=== PATIENT | male | born 1995 | race Caucasian/White ===

== ENCOUNTER 2017-07-12 11:13 | Observation (INO) | payer BC ==
[~2017-07-12] VITALS: Ht 185.4 cm; Wt 121.6 kg
[~2017-07-12 11:13] MED LIST: EC-N500T7 PO
[2017-07-12 11:14] VITALS: BP 155/98; PULSE 95; RESP 17; TEMP 98.7; O2SAT 97
[2017-07-12 11:30] VITALS: O2SAT 100
[2017-07-12] MEDS ORDERED: PANTOPRAZOLE SODIUM 40 MG VIAL IVP ONE (11:30)
[2017-07-12] MEDS ORDERED: ONDANSETRON HCL 4 MG/2 ML VIAL IVP ONE (11:30)
[2017-07-12] MEDS ORDERED: MORPHINE SULFATE 4 MG/ML INJ IV PUSH ONE ×2 (11:30→13:15)
[2017-07-12] MEDS ORDERED: SODIUM CHLORIDE 0.9% FLUSH 10 ML FLUSH IV FLUSH PRN ×2 (11:30→14:45)
--- NOTE | 2017-07-12 11:52 | PD ---
HPI Chief Complaint: Abdominal Pain Time Seen by Provider: 11:19 Travel History International Travel<30 days: No Contact w/Intl Traveler<30days: No Traveled to known affect area: No History of Present Illness HPI 22-year-old male presents to the emergency room for evaluation of right upper abdominal pain that woke him from sleep this morning. Patient has history of peptic ulcer disease. He last had an endoscopy 4 years ago and has been on omeprazole 40 mg daily since then. States he occasionally gets pain but never this bad. He had associated episode of vomiting with bright red blood. No nausea, fever, chills, or diarrhea. No other chronic medical conditions or daily medications. 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 [facility] Past Medical History Inguinal Hernia: Yes Immunizations Current: Yes Past Surgical History Other Surgery: Yes (HERNIA REPAIR) Social History Alcohol Use: No Tobacco Use: No Substance Use: No Allergies-Medications (Allergen,Severity, Reaction): Coded Allergies: No Known Allergies (Unverified Allergy, Unknown, 07/12/17) Reported Meds & Prescriptions Reported Meds & Active Scripts Active Reported Omeprazole 20 Mg Tab 20 Mg PO BID Review of Systems Except as stated in HPI: all other systems reviewed are Neg Physical Exam Narrative GENERAL: Well-nourished, well-developed male in no acute distress. Afebrile. Ambulatory. SKIN: Focused skin assessment warm/dry. HEAD: Normocephalic. EYES: No scleral icterus. No injection or drainage. NECK: Supple, trachea midline. No JVD or lymphadenopathy. CARDIOVASCULAR: Regular rate and rhythm without murmurs, gallops, or rubs. RESPIRATORY: Breath sounds equal bilaterally. No accessory muscle use. GASTROINTESTINAL: Abdomen soft, nondistended. Extreme tenderness to palpation of the right upper quadrant. Data Data Last Documented VS Vital Signs Date Time Temp Pulse Resp B/P (MAP) Pulse Ox O2 Delivery O2 Flow Rate FiO2 07/12/17 11:30 100 07/12/17 11:14 98.7 95 17 Room Air Orders Orders Complete Blood Count With Diff (07/12/17 11:25) Comprehensive Metabolic Panel (07/12/17 11:25) Lipase (07/12/17 11:25) Prothrombin Time / Inr (Pt) (07/12/17 11:25) Act Partial Throm Time (Ptt) (07/12/17 11:25) Abdomen, Flat & Upright (07/12/17 ) Iv Access Insert/Monitor (07/12/17 11:25) Ecg Monitoring (07/12/17 11:25) Oximetry (07/12/17 11:25) Morphine Inj (Morphine Inj) (07/12/17 11:30) Ondansetron Inj (Zofran Inj) (07/12/17 11:30) Pantoprazole Inj (Protonix Inj) (07/12/17 11:30) Sodium Chloride 0.9% Flush (Ns Flush) (07/12/17 11:30) Type And Screen (07/12/17 11:52) Morphine Inj (Morphine Inj) (07/12/17 13:15) Consult Gastroenterology (07/12/17 ) Sodium Chloride 0.9... W/Pantoprazole In (07/12/17 13:29) Sodium Chloride 0.9... W/Pantoprazole In (07/12/17 13:29) (Hub Use Only)Inp Phy Cons/Ref (07/12/17 ) Admit Order (Ed Use Only) (07/12/17 14:10) Labs Laboratory Tests Test 07/12/17 11:30 White Blood Count 9.0 TH/MM3 Red Blood Count 4.77 MIL/MM3 Hemoglobin 15.6 GM/DL Hematocrit 44.7 % Mean Corpuscular Volume 93.7 FL Mean Corpuscular Hemoglobin 32.8 PG Mean Corpuscular Hemoglobin Concent 35.0 % Red Cell Distribution Width 12.5 % Platelet Count 245 TH/MM3 Mean Platelet Volume 8.3 FL Neutrophils (%) (Auto) 66.6 % Lymphocytes (%) (Auto) 23.4 % Monocytes (%) (Auto) 8.6 % Eosinophils (%) (Auto) 0.9 % Basophils (%) (Auto) 0.5 % Neutrophils # (Auto) 6.0 TH/MM3 Lymphocytes # (Auto) 2.1 TH/MM3 Monocytes # (Auto) 0.8 TH/MM3 Eosinophils # (Auto) 0.1 TH/MM3 Basophils # (Auto) 0.0 TH/MM3 CBC Comment DIFF FINAL Differential Comment Prothrombin Time 11.0 SEC Prothromb Time International Ratio 1.0 RATIO Activated Partial Thromboplast Time 27.4 SEC Blood Urea Nitrogen 11 MG/DL Creatinine 1.07 MG/DL Random Glucose 103 MG/DL Total Protein 7.6 GM/DL Albumin 4.0 GM/DL Calcium Level 8.7 MG/DL Alkaline Phosphatase 57 U/L Aspartate Amino Transf (AST/SGOT) 39 U/L Alanine Aminotransferase (ALT/SGPT) 81 U/L Total Bilirubin 0.4 MG/DL Sodium Level 140 MEQ/L Potassium Level 3.8 MEQ/L Chloride Level 105 MEQ/L Carbon Dioxide Level 28.9 MEQ/L Anion Gap 6 MEQ/L Estimat Glomerular Filtration Rate 86 ML/MIN Lipase 81 U/L [facility] Medical Decision Making Medical Screen Exam Complete: Yes Emergency Medical Condition: Yes Medical Record Reviewed: Yes Differential Diagnosis PUD, perforated ulcer, GERD, pancreatitis Narrative Course 22-year-old male history of PUD presents to the emergency room for evaluation of severe right upper quadrant abdominal pain that started earlier today. Pain woke patient from sleep. He had one episode of vomiting earlier bright red blood in it. IV access established and basic labs obtained. Patient given IV Protonix, Zofran, and morphine. While in the ED, he vomited. Hemoccult testing was positive for blood though there is concern for false positive because it is meant for stool. There is moderate to severe tenderness in the right upper quadrant but no peritoneal signs. Abdominal x-rays don't show any evidence of free air. CBC and CMP are essentially unremarkable. Vital signs stable. I spoke to my attending physician who recommends admission for hematemesis despite being on 40 mg Protonix the past 4 years. GI consulted for endoscopy. I spoke the resident on-call for Dr. Hernandez who agrees to admission. Patient understands and agrees to plan. Admitting Information Admitting Physician Requests: Observation Condition: Stable Nakia Boykin Jul 12, 2017 11:52
[2017-07-12 12:17] LABS: BASOPHIL % 0.5 % (0.0-2.0); EOSINOPHIL # 0.1 TH/MM3 (0-0.4); EOSINOPHIL % 0.9 % (0.0-4.0); HEMATOCRIT 44.7 % (39.0-51.0); HEMOGLOBIN 15.6 GM/DL (13.0-17.0); LYMPH % 23.4 % (9.0-44.0); LYMPHOCYTE # 2.1 TH/MM3 (1.0-4.8); MEAN CELL VOLUME 93.7 FL (80.0-100.0); MEAN CORPUSCULAR HEMOGLOBIN 32.8 PG (27.0-34.0); MEAN PLATELET VOLUME 8.3 FL (7.0-11.0); MONO % 8.6 % (0.0-8.0); MONOCYTE # 0.8 TH/MM3 (0-0.9); NEUT % 66.6 % (16.0-70.0); PLATELET COUNT 245 TH/MM3 (150-450); RED BLOOD COUNT 4.77 MIL/MM3 (4.50-5.90); RED CELL DISTRIBUTION WIDTH 12.5 % (11.6-17.2)
[2017-07-12 12:33] LABS: ALKALINE PHOSPHATASE 57 U/L (45-117); ALT (GPT) 81 U/L (12-78); TOTAL BILIRUBIN ADULT 0.4 MG/DL (0.2-1.0); TOTAL PROTEIN 7.6 GM/DL (6.4-8.2)
[2017-07-12 12:37] LABS: AST (GOT) 39 U/L (15-37); BICARBONATE 28.9 MEQ/L (21.0-32.0); BLOOD UREA NITROGEN 11 MG/DL (7-18); CALCIUM 8.7 MG/DL (8.5-10.1); CHLORIDE 105 MEQ/L (98-107); CREATININE 1.07 MG/DL (0.60-1.30); GLOMERULAR FILTRATION RATE 86 ML/MIN (>89); GLUCOSE,RANDOM 103 MG/DL (74-106); LIPASE 81 U/L (73-393); SODIUM (NA) 140 MEQ/L (136-145)
--- NOTE | 2017-07-12 12:53 | RADRPT ---
EXAM DATE/TIME: 07/12/2017 12:17 [place] COMPARISON: No previous studies available for comparison. INDICATIONS : Pain right upper abdomen, nausea, vomiting, acid reflux. Evaluate for free air. MEDICAL HISTORY : gastric ulcers SURGICAL HISTORY : None. ENCOUNTER: Initial ACUITY: 2 days PAIN SCORE: 10/10 LOCATION: Right abdomen FINDINGS: Supine and upright views of the abdomen were performed. The abdominal bowel gas pattern is normal. No air fluid levels are seen. No abnormal masses, calcifications, or organomegaly is seen. The visu alized lower lungs are clear. No evidence of free intraperitoneal gas. The osseous structures are u nremarkable. CONCLUSION: Radiographically benign abdomen. Dayron Sheth MD on July 12, 2017 at 12:50 Board Certified Radiologist. This report was verified electronically.
[2017-07-12] MEDS ORDERED: SODIUM CHLORIDE 0.9% IV ONE (13:29)
[2017-07-12] MEDS ORDERED: PANTOPRAZOLE IV ONE (13:29)
[2017-07-12] MEDS ORDERED: OMEP20TA93 PO (13:33)
[2017-07-12] MEDS: PANTOPRAZOLE INJ 80 MG in SODIUM CHLORIDE 0.9% INJ 100 ML IV SCH ×2 (14:06→23:23)
[2017-07-12] MEDS ORDERED: IOHEXOL 350 MG/ML 10 ML VIAL (for RAD DIAG) IVCONTRAST ONE (14:12)
[2017-07-12] MEDS ORDERED: SENNOSIDES 8.6 MG TAB PO PRN (14:45)
[2017-07-12] MEDS ORDERED: TEMAZEPAM 15 MG CAP PO PRN (14:45)
[2017-07-12] MEDS ORDERED: BISACODYL 10 MG SUPP RECTAL PRN (14:45)
[2017-07-12] MEDS ORDERED: NALOXONE HCL 0.4 MG/ML AMP IV PUSH PRN (14:45)
[2017-07-12] MEDS ORDERED: MAGNESIUM HYDROXIDE SUSP 30 ML CUP PO PRN (14:45)
[2017-07-12] MEDS ORDERED: ONDANSETRON HCL 4 MG/2 ML VIAL IVP PRN (14:45)
[2017-07-12] MEDS ORDERED: LACTULOSE SYRUP 20 GM/30 ML CUP PO PRN (14:45)
[2017-07-12] MEDS ORDERED: ACETAMINOPHEN 325 MG TAB PO PRN (14:45)
--- NOTE | 2017-07-12 14:48 | HHI.HP ---
HPI Service Family Medicine Primary Care Physician No Primary Care Physician Admission Diagnosis hematemesis, PUD Diagnoses: International Travel<30 Days: No Contact w/Intl Traveler<30days: No Known Affected Area: No History of Present Illness 22 yr old w/ PMHx of PUD presents to the ED for hematemesis. No PCP. Patient reports having 2 day hx of worsening RUQ abdominal pain. He describes the pain as 8/10, constant, and sharp. He's had 2 episodes of slightly bloody vomiting in the past 2 days. He's had 2 episodes of slightly bloody vomiting in the ED. He endorses nausea and lightheadedness. Last meal he ate was last night, but was unable to keep it down. His abdominal pain is not related to food. He is able to drink liquids w/o difficulty. He denies diarrhea, fever, chills, CP, and SOB. He reports that this is his 3rd hospitalization for his abdominal pain. His most recent hospitalization was 4 years ago, an endoscopy was performed and revealed 5-6 ulcers per patient. he was placed on omeprazole 20mg BID. He does not recall the GI doctor that treated him. He does not recall being tested or treated for H.pylori. Review of Systems Constitutional: COMPLAINS OF: Change in appetite (decreased appetite ), DENIES : Fever, Weight loss, Chills Ears, nose, mouth, throat: COMPLAINS OF: Throat pain (sore throat due to vomiting ) Respiratory: DENIES: Cough, Shortness of breath Cardiovascular: DENIES: Chest pain Gastrointestinal: COMPLAINS OF: Abdominal pain (RUQ pain ), Nausea, Vomiting, DENIES: Bloody stools, Diarrhea Genitourinary: DENIES: Dysuria Musculoskeletal: DENIES: Muscle aches Integumentary: DENIES: Abnormal pigmentation Hematologic/lymphatic: DENIES: Bruising Neurologic: DENIES: Headache Past Family Social History Past Medical History Depression PUD Past Surgical History Surgery for undescended testicle Allergies: Coded Allergies: No Known Allergies (Unverified Allergy, Unknown, 07/12/17) Family History Parents are alive and well. HTN, HLD, DM Social History Senior Student at [employer] studying [employer] Denies smoking Occasional Drinker Denies Illicit Drug Use Physical Exam Vital Signs Vital Signs Date Time Temp Pulse Resp B/P (MAP) Pulse Ox O2 Delivery O2 Flow Rate FiO2 11/28/17 11:30 100 07/12/17 11:14 98.7 95 17 155/98 (117) 97 Room Air Physical Exam GENERAL: pleasant, in NAD SKIN: No rashes, ecchymoses or lesions. Cool and dry. HEAD: Atraumatic. Normocephalic. No temporal or scalp tenderness. EYES: Dilated pupils. Extraocular motions intact. No scleral icterus. No injection or drainage. ENT: Throat clear NECK: Trachea midline. No JVD or lymphadenopathy. Supple, nontender, no meningeal signs. CARDIOVASCULAR: Regular rate and rhythm without murmurs, gallops, or rubs. RESPIRATORY: Clear to auscultation. Breath sounds equal bilaterally. No wheezes , rales, or rhonchi. GASTROINTESTINAL: Abdomen soft, mild RUQ tenderness upon palpation, nondistended. No hepato-splenomegaly, or palpable masses. No guarding. +BS MUSCULOSKELETAL: Extremities without clubbing, cyanosis, or edema. No joint tenderness, effusion, or edema noted. NEUROLOGICAL: Awake and alert. Oriented x3 Laboratory Laboratory Tests Test 07/12/17 11:30 White Blood Count 9.0 Red Blood Count 4.77 Hemoglobin 15.6 Hematocrit 44.7 Mean Corpuscular Volume 93.7 Mean Corpuscular Hemoglobin 32.8 Mean Corpuscular Hemoglobin Concent 35.0 Red Cell Distribution Width 12.5 Platelet Count 245 Mean Platelet Volume 8.3 Neutrophils (%) (Auto) 66.6 Lymphocytes (%) (Auto) 23.4 Monocytes (%) (Auto) 8.6 Eosinophils (%) (Auto) 0.9 Basophils (%) (Auto) 0.5 Neutrophils # (Auto) 6.0 Lymphocytes # (Auto) 2.1 Monocytes # (Auto) 0.8 Eosinophils # (Auto) 0.1 Basophils # (Auto) 0.0 CBC Comment DIFF FINAL Differential Comment Prothrombin Time 11.0 Prothromb Time International Ratio 1.0 Activated Partial Thromboplast Time 27.4 Blood Urea Nitrogen 11 Creatinine 1.07 Random Glucose 103 Total Protein 7.6 Albumin 4.0 Calcium Level 8.7 Alkaline Phosphatase 57 Aspartate Amino Transf (AST/SGOT) 39 Alanine Aminotransferase (ALT/SGPT) 81 Total Bilirubin 0.4 Sodium Level 140 Potassium Level 3.8 Chloride Level 105 Carbon Dioxide Level 28.9 Anion Gap 6 Estimat Glomerular Filtration Rate 86 Lipase 81 Result Diagram: 07/12/170 07/12/17 1130 Caprini VTE Risk Assessment Caprini VTE Risk Assessment: No/Low Risk (score <= 1) Caprini Risk Assessment Model Point Value = 1 Point Value = 2 Point Value = 3 Point Value = 5 Age 41-60 Minor surgery BMI > 25 kg/m2 Swollen legs Varicose veins or History of unexplained or recurrent spontaneous Oral contraceptives or hormone replacement Sepsis (< 1 month) Serious lung disease, including pneumonia (< 1 month) Abnormal pulmonary function Acute myocardial infarction Congestive heart failure (< 1 month) History of inflammatory bowel disease Medical patient at bed rest Age 61-74 Arthroscopic surgery Major open surgery (> 45 min) Laparoscopic surgery (> 45 min) Malignancy Confined to bed (> 72 hours) Immobilizing plaster cast Central venous access Age >= 75 History of VTE Family history of VTE Factor V Leiden Prothrombin [id number] Lupus anticoagulant Anticardiolipin antibodies Elevated serum homocysteine Heparin-induced thrombocytopenia Other congenital or acquired thrombophilia Stroke (< 1 month) Elective arthroplasty Hip, pelvis, or leg fracture Acute spinal cord injury (< 1 month) Prophylaxis Regimen Total Risk Factor Score Risk Level Prophylaxis Regimen 0-1 Low Early ambulation 2 Moderate Order ONE of the following: *Sequential Compression Device (SCD) *Heparin 5000 units SQ BID 3-4 Higher Order ONE of the following medications: *Heparin 5000 units SQ TID *Enoxaparin/Lovenox 40 mg SQ daily (WT < 150 kg, CrCl > 30 mL/min) *Enoxaparin/Lovenox 30 mg SQ daily (WT < 150 kg, CrCl > 10-29 mL/min) *Enoxaparin/Lovenox 30 mg SQ BID (WT < 150 kg, CrCl > 30 mL/min) AND/OR *Sequential Compression Device (SCD) 5 or more Highest Order ONE of the following medications: *Heparin 5000 units SQ TID (Preferred with Epidurals) *Enoxaparin/Lovenox 40 mg SQ daily (WT < 150 kg, CrCl > 30 mL/min) *Enoxaparin/Lovenox 30 mg SQ daily (WT < 150 kg, CrCl > 10-29 mL/min) *Enoxaparin/Lovenox 30 mg SQ BID (WT < 150 kg, CrCl > 30 mL/min) AND *Sequential Compression Device (SCD) Assessment and Plan Assessment and Plan 22 yr old M w/ hx of PUD admitted for hematemesis and RUQ abdominal pain Code Status Full Code Discussed Condition With Dr. Hernandez and Dr. Zhang Problem List: (1) Hematemesis ICD Codes: K92.0 - Hematemesis Status: Acute Plan: Hx of Peptic Ulcer Disease 4 years ago. Several episodes of hematemesis. * GI consulted, appreciated recs * H/H stable * AST and ALT mildly elevated * Hemoccult negative * Abdominal X-ray normal * Gallbladder US limited to patient's body habitus. Liver unremarkable. Possible gallbladder sludge. * Held home omeprazole 20mg PO BID * Protonix drip started * NPO, plan for EGD in the AM * CBC, CMP ordered for the AM (2) Abdominal pain ICD Codes: R10.9 - Unspecified abdominal pain Status: Acute Plan: please see plan above (3) Depression ICD Codes: F32.9 - Major depressive disorder, single episode, unspecified Plan: Continue home med, Prozac 40mg PO daily (4) Nutrition, metabolism, and development symptoms ICD Codes: R63.8 - Other symptoms and signs concerning food and fluid intake Plan: Diet: NPO after midnight Fluids: 140mls/hr MIVF vitals q4h, monitor I & Os DVT ppx: SCDs Problem Qualifiers (1) Hematemesis: Qualified Codes: K92.0 - Hematemesis (2) Abdominal pain: Qualified Codes: R10.11 - Right upper quadrant pain Sayra Presley MD R1 Jul 12, 2017 14:48
--- NOTE | 2017-07-12 14:49 | PD ---
Data Data Last Documented VS Vital Signs Date Time Temp Pulse Resp B/P (MAP) Pulse Ox O2 Delivery O2 Flow Rate FiO2 07/12/17 11:30 100 07/12/17 11:14 98.7 95 17 Room Air Orders Orders Complete Blood Count With Diff (07/12/17 11:25) Comprehensive Metabolic Panel (07/12/17 11:25) Lipase (07/12/17 11:25) Prothrombin Time / Inr (Pt) (07/12/17 11:25) Act Partial Throm Time (Ptt) (07/12/17 11:25) Abdomen, Flat & Upright (07/12/17 ) Iv Access Insert/Monitor (07/12/17 11:25) Ecg Monitoring (07/12/17 11:25) Oximetry (07/12/17 11:25) Morphine Inj (Morphine Inj) (07/12/17 11:30) Ondansetron Inj (Zofran Inj) (07/12/17 11:30) Pantoprazole Inj (Protonix Inj) (07/12/17 11:30) Sodium Chloride 0.9% Flush (Ns Flush) (07/12/17 11:30) Type And Screen (07/12/17 11:52) Morphine Inj (Morphine Inj) (07/12/17 13:15) Consult Gastroenterology (07/12/17 ) Sodium Chloride 0.9... W/Pantoprazole In (07/12/17 13:29) Sodium Chloride 0.9... W/Pantoprazole In (07/12/17 13:29) (Hub Use Only)Inp Phy Cons/Ref (07/12/17 ) Admit Order (Ed Use Only) (07/12/17 14:10) Labs Laboratory Tests Test 07/12/17 11:30 White Blood Count 9.0 TH/MM3 Red Blood Count 4.77 MIL/MM3 Hemoglobin 15.6 GM/DL Hematocrit 44.7 % Mean Corpuscular Volume 93.7 FL Mean Corpuscular Hemoglobin 32.8 PG Mean Corpuscular Hemoglobin Concent 35.0 % Red Cell Distribution Width 12.5 % Platelet Count 245 TH/MM3 Mean Platelet Volume 8.3 FL Neutrophils (%) (Auto) 66.6 % Lymphocytes (%) (Auto) 23.4 % Monocytes (%) (Auto) 8.6 % Eosinophils (%) (Auto) 0.9 % Basophils (%) (Auto) 0.5 % Neutrophils # (Auto) 6.0 TH/MM3 Lymphocytes # (Auto) 2.1 TH/MM3 Monocytes # (Auto) 0.8 TH/MM3 Eosinophils # (Auto) 0.1 TH/MM3 Basophils # (Auto) 0.0 TH/MM3 CBC Comment DIFF FINAL Differential Comment Prothrombin Time 11.0 SEC Prothromb Time International Ratio 1.0 RATIO Activated Partial Thromboplast Time 27.4 SEC Blood Urea Nitrogen 11 MG/DL Creatinine 1.07 MG/DL Random Glucose 103 MG/DL Total Protein 7.6 GM/DL Albumin 4.0 GM/DL Calcium Level 8.7 MG/DL Alkaline Phosphatase 57 U/L Aspartate Amino Transf (AST/SGOT) 39 U/L Alanine Aminotransferase (ALT/SGPT) 81 U/L Total Bilirubin 0.4 MG/DL Sodium Level 140 MEQ/L Potassium Level 3.8 MEQ/L Chloride Level 105 MEQ/L Carbon Dioxide Level 28.9 MEQ/L Anion Gap 6 MEQ/L Estimat Glomerular Filtration Rate 86 ML/MIN Lipase 81 U/L MDM Supervised Visit with JUAQUIN: Yes Narrative Course The history, exam, and medical decision-making in the associated mid-level provider note were completed with my assistance. I reviewed and agree with the findings presented. I attest that I had a [id number] encounter with the patient on the same day, and personally performed and documented my assessment and findings in the medical record. *My assessment and Findings: 20-year-old, history of peptic ulcer disease, here with abdominal pain, epigastric tenderness, hematemesis. Looks overall well. Some right upper quadrant and epigastric tenderness. I don't think he has hepatobiliary disease. Reports bright red blood intermixed with vomitus. We'll plan on admission for observation. May need endoscopy. Admitting Information Admitting Physician Requests: Observation Condition: Stable Víctor Kimball MD Jul 12, 2017 14:48
[2017-07-12] MEDS ORDERED: PROZ40CA PO (14:50)
--- NOTE | 2017-07-12 14:59 | PD.CONS ---
HPI History of Present Illness This is a 22 year old with a history of peptic ulcer disease, who presented to the emergency room for evaluation of abdominal pain and hematemesis. He reports that he had a stomach ulcer about 4 years ago and has since been on Omeprazole 20mg po twice daily. Despite BID dosing, he continues to have breakthrough symptoms about 3-4 times a week and he does note that this has been worsening over the past few weeks. He states that he frequently wakes up with acid reflux and states sometimes it also "chokes" him. Last night, he had [place] takeout dinner around 8pm. He went to bed around midnight and then woke up with abdominal pain around 6am. This is a constant sharp pain in his right upper quadrant without radiation. He has had intermittent nausea and vomiting x 2 days. He also reports that he had about a mouthful of emesis consisting of acid reflux/yellow gastric secretions streaked with red blood. He denies any constipation, diarrhea, melena, or hematochezia. He denies any NSAID use. He rarely drinks alcohol. He does not typically eat fried foods, but states that he does not have any known fatty food intolerances. (Isela Da Silva) PFSH Past Medical History GERD PUD Past Surgical History EGD Testicle surgery as child (Isela Da Silva) Coded Allergies: No Known Allergies (Unverified Allergy, Unknown, 07/12/17) Medications Allergies Coded Allergies Type Severity Reaction Last Updated Verified No Known Allergies Allergy Unknown 07/12/17 No Active Scripts Medications Dose Route/Sig Max Daily Dose Days Date Category Omeprazole 20 Mg Tab 20 Mg PO BID 07/12/17 Reported Family History PGM from [place] MGM has DM MGF Cardiac disease/[place], hyperlipidemia, HTN Social History No tobacco. Rare ETOH use No illicit drug use. (Isela Da Silva) Review of Systems Constitutional: DENIES: Fatigue, Fever, Chills Respiratory: DENIES: Cough Cardiovascular: DENIES: Chest pain Gastrointestinal: COMPLAINS OF: Abdominal pain, Nausea, Vomiting, Heartburn, Hematemesis, DENIES: Black stools, Bloody stools, Constipation, Diarrhea Musculoskeletal: DENIES: Joint pain Hematologic/lymphatic: DENIES: Bruising Immunologic/allergic: DENIES: Eczema Neurologic: DENIES: Headache Psychiatric: DENIES: Confusion (Isela Da Silva) GI Exam Vitals I&O Vital Signs Date Time Temp Pulse Resp B/P (MAP) Pulse Ox O2 Delivery O2 Flow Rate FiO2 07/12/17 11:30 100 07/12/17 11:14 98.7 95 17 155/98 (117) 97 Room Air I/O 07/11/17 07/11/17 07/11/17 07/12/17 07/12/17 07/12/17 07:00 15:00 23:00 07:00 15:00 23:00 Intake Total 35 ml Balance 35 ml Intake IV Total 35 ml Imaging Last Impressions Abdomen X-Ray 07/12/17 0000 Signed Impressions: Service Date/Time: Wednesday, July 12, 2017 12:17 - CONCLUSION: Radiographically benign abdomen. Dayron Sheth MD Laboratory Test 07/12/17 11:30 White Blood Count 9.0 TH/MM3 Red Blood Count 4.77 MIL/MM3 Hemoglobin 15.6 GM/DL Hematocrit 44.7 % Mean Corpuscular Volume 93.7 FL Mean Corpuscular Hemoglobin 32.8 PG Mean Corpuscular Hemoglobin Concent 35.0 % Red Cell Distribution Width 12.5 % Platelet Count 245 TH/MM3 Mean Platelet Volume 8.3 FL Neutrophils (%) (Auto) 66.6 % Lymphocytes (%) (Auto) 23.4 % Monocytes (%) (Auto) 8.6 % Eosinophils (%) (Auto) 0.9 % Basophils (%) (Auto) 0.5 % Neutrophils # (Auto) 6.0 TH/MM3 Lymphocytes # (Auto) 2.1 TH/MM3 Monocytes # (Auto) 0.8 TH/MM3 Eosinophils # (Auto) 0.1 TH/MM3 Basophils # (Auto) 0.0 TH/MM3 CBC Comment DIFF FINAL Differential Comment Prothrombin Time 11.0 SEC Prothromb Time International Ratio 1.0 RATIO Activated Partial Thromboplast Time 27.4 SEC Blood Urea Nitrogen 11 MG/DL Creatinine 1.07 MG/DL Random Glucose 103 MG/DL Total Protein 7.6 GM/DL Albumin 4.0 GM/DL Calcium Level 8.7 MG/DL Alkaline Phosphatase 57 U/L Aspartate Amino Transf (AST/SGOT) 39 U/L Alanine Aminotransferase (ALT/SGPT) 81 U/L Total Bilirubin 0.4 MG/DL Sodium Level 140 MEQ/L Potassium Level 3.8 MEQ/L Chloride Level 105 MEQ/L Carbon Dioxide Level 28.9 MEQ/L Anion Gap 6 MEQ/L Estimat Glomerular Filtration Rate 86 ML/MIN Lipase 81 U/L Physical Examination HEENT: Normocephalic; atraumatic; no jaundice. CHEST: CTA CARDIAC: RRR ABDOMEN: Soft, nondistended, RUQ tenderness; no hepatosplenomegaly; bowel sounds are present in all four quadrants. EXTREMITIES: No clubbing, cyanosis, or edema. SKIN: Normal; no rash; no jaundice. HEAD WRESTLING COACH: No focal deficits; alert and oriented times three. (Isela Da Silva) Assessment and Plan Plan ASSESSMENT: - Hematemesis. N/V x 2 days. This am, had hematemesis "mouthful of acid mixed with red blood." Hx of PUD 4 years ago. Last EGD at that time. On Omeprazole 20mg po BID. HH Stable. Protonix Gtt. NPO. - RUQ pain with elevated LFTs. Pt has significant RUQ tenderness on exam. AST and ALT mildly elevated. No hx of liver disease. Rare ETOH use. T. Bili 0.4, AST 39, ALT 81, Alk PHosph 57. Check RUQ US for signs of acute cholecystitis. - Severe GERD with breakthrough symptoms. Takes PPI with BID dosing at home, but still with breakthrough symptoms 3-4 times a week. Protonix Gtt. PLAN: - Plan for EGD in am - Obtain consents - Clear liquids after RUQ US - RUQ US to evaluate for acute cholecystitis - Protonix Gtt - Monitor HH - Transfuse as necessary - CBC, CMP in am - Supportive care - Further recommendations to follow based on results of above - Pt seen and examined by Dr. Hamilton and myself and this note is written on her behalf (Isela Da Silva) Physician Comments seen, examined agree with above egd in am us noted -we will order hida scan-tenderness ruq strong family history of colon cancer-as per mother-4 aunts had colon cancer- colonoscopy op high risk (Radha Hamilton MD) Isela Da Silva Jul 12, 2017 14:59 Radha Hamilton MD Jul 12, 2017 19:14
--- NOTE | 2017-07-12 15:04 | HHI.FPPN ---
Subjective Remarks Pt. seen, examined and discussed with Drs. Presley and Aldair Hernandez. This is a 22 yo male student at [employer] who developed right upper quadrant abdominal pain 2 days ago which is constant and has steadily worsened. This a.m. he awoke with bloody mucus in his mouth, and subsequently has vomited several times, reporting blood streaks. Remains nauseated. He was diagnosed with 4-5 peptic ulcers approximately 4 years ago and has been on a PPI faithfully since. Does not recall if he took antibiotics for H. Pylori. Has been avoiding spicy foods overall. No recent dietary indiscretions. Last BM last night which was normal. Hx of depression on Prozac. Due to graduate from [employer] in 22 days. No local PCP ; had a PCP in the [place] area previously. See H&P for this admission for additional past, family, social history and ROS at the time of admission. Objective Vitals Vital Signs Date Time Temp Pulse Resp B/P (MAP) Pulse Ox O2 Delivery O2 Flow Rate FiO2 07/12/17 11:30 100 07/12/17 11:14 98.7 95 17 155/98 (117) 97 Room Air I/O 07/11/17 07/11/17 07/11/17 07/12/17 07/12/17 07/12/17 07:00 15:00 23:00 07:00 15:00 23:00 Intake Total 35 ml Balance 35 ml Intake IV Total 35 ml Result Diagram: 07/12/17 1130 07/12/17 1130 Other Results Laboratory Tests Test 07/12/17 11:30 White Blood Count 9.0 TH/MM3 Red Blood Count 4.77 MIL/MM3 Hemoglobin 15.6 GM/DL Hematocrit 44.7 % Mean Corpuscular Volume 93.7 FL Mean Corpuscular Hemoglobin 32.8 PG Mean Corpuscular Hemoglobin Concent 35.0 % Red Cell Distribution Width 12.5 % Platelet Count 245 TH/MM3 Mean Platelet Volume 8.3 FL Neutrophils (%) (Auto) 66.6 % Lymphocytes (%) (Auto) 23.4 % Monocytes (%) (Auto) 8.6 % Eosinophils (%) (Auto) 0.9 % Basophils (%) (Auto) 0.5 % Neutrophils # (Auto) 6.0 TH/MM3 Lymphocytes # (Auto) 2.1 TH/MM3 Monocytes # (Auto) 0.8 TH/MM3 Eosinophils # (Auto) 0.1 TH/MM3 Basophils # (Auto) 0.0 TH/MM3 CBC Comment DIFF FINAL Differential Comment Prothrombin Time 11.0 SEC Prothromb Time International Ratio 1.0 RATIO Activated Partial Thromboplast Time 27.4 SEC Blood Urea Nitrogen 11 MG/DL Creatinine 1.07 MG/DL Random Glucose 103 MG/DL Total Protein 7.6 GM/DL Albumin 4.0 GM/DL Calcium Level 8.7 MG/DL Alkaline Phosphatase 57 U/L Aspartate Amino Transf (AST/SGOT) 39 U/L Alanine Aminotransferase (ALT/SGPT) 81 U/L Total Bilirubin 0.4 MG/DL Sodium Level 140 MEQ/L Potassium Level 3.8 MEQ/L Chloride Level 105 MEQ/L Carbon Dioxide Level 28.9 MEQ/L Anion Gap 6 MEQ/L Estimat Glomerular Filtration Rate 86 ML/MIN Lipase 81 U/L Imaging Last 24 hours Impressions Abdomen X-Ray 07/12/17 0000 Signed Impressions: Service Date/Time: Wednesday, July 12, 2017 12:17 - CONCLUSION: Radiographically benign abdomen. Dayron Sheth MD Objective Remarks O. CONSTITUTIONAL/GEN: normally nourished, in NAD. EYES: conjunctiva normal, PERRLA, EOMI. ENT: Mouth and pharynx normal. MM moist. NECK: thyroid midline, carotids symmetrical. Supple. LUNGS: clear A-P, respiratory effort is normal. CARDIOVASCULAR: RR without murmur or gallop. No significant edema. Thorax: No spinous process tenderness. GI/ABD: soft without masses, without organomegaly. BS +. No guarding, no rigidity, some tenderness to palpation RUQ. Rectal exam negative with heme negative stool. : no CVA tenderness NEURO: No focal deficits. SKIN: color normal, no rashes noted. HEME/LYMPH: no bruising, petechia or significant adenopathy MUSC: back is normal in appearance. Extremities are normal in appearance. PSYCH/MENTAL STATUS: Alert and oriented x 3. A/P Assessment and Plan 22 yo male with right upper quadrant pain and vomiting with a history of peptic ulcer disease. See orders; GI consultation. Discharge Planning Case management consult. Attending Attestation Patient seen and examined. Case reviewed and discussed with the resident team. Agree with plan of care as discussed with me and documented in the resident note. Aurora Hernandez MD Jul 12, 2017 15:04
--- NOTE | 2017-07-12 15:55 | RADRPT ---
EXAM DATE/TIME: 07/12/2017 15:19 [facility] COMPARISON: No previous studies available for comparison. INDICATIONS : Right upper quadrant pain. MEDICAL HISTORY : Hematemesis. Hernia, inguinal. SURGICAL HISTORY : Inguinal hernai repair. ENCOUNTER: Initial ACUITY: > 1 year PAIN SCORE: 6/10 LOCATION: Right upper quadrant MEASUREMENTS: LIVER: 19.2 cm length COMMON DUCT: Non-visualized RIGHT KIDNEY: 10.1 x 6.0 x 4.8 cm FINDINGS: Extremely limited examination due to patient body habitus. Pancreas could not be visualized due to ov erlying bowel gas. Limited visualization of the liver shows no acute abnormality. Possible gallbladde r sludge with minimal pericholecystic fluid but again, anatomic detail is limited. Right kidney is gr ossly unremarkable. CONCLUSION: 1. Extremely limited examination due to patient's body habitus. The pancreas and hepatic vasculature could not be identified. 2. Visualized portions of the liver are grossly unremarkable. 3. Possible gallbladder sludge and may be a minimal amount of pericholecystic fluid although again, a natomic detail is limited. Dayron Sheth MD on July 12, 2017 at 15:51 Board Certified Radiologist. This report was verified electronically.
[2017-07-12] MEDS: DOCUSATE SODIUM 50 MG/SENNA 8.6 MG TAB PO SCH ×2 (16:00→21:00)
[2017-07-12] MEDS: SODIUM CHLOR 0.9% 1000 ML INJ 1,000 ML IV SCH (16:00)
[2017-07-12 16:04] VITALS: BP 132/90; PULSE 93; RESP 18; TEMP 96.1; O2SAT 95
[2017-07-12] MEDS: SODIUM CHLORIDE 0.9% FLUSH 10 ML FLUSH IV FLUSH SCH ×2 (16:16→21:00)
[2017-07-12] MEDS: MORPHINE SULFATE 2 MG/ML INJ IV PUSH PRN ×2 (16:16→23:23)
[2017-07-12 16:19] VITALS: O2SAT 95
[2017-07-12 19:33] VITALS: BP 144/69; PULSE 90; RESP 16; TEMP 98.2; O2SAT 95
[2017-07-12 22:29] LABS: HEMATOCRIT 39.6 % (39.0-51.0); HEMOGLOBIN 13.8 GM/DL (13.0-17.0)
[2017-07-13] MEDS ORDERED: SODIUM CHLORID 0.9% 500 ML IV PRN (00:15)
[2017-07-13] MEDS ORDERED: LACTATED RINGER'S 1000 ML IV PRN (00:15)
[2017-07-13] MEDS ORDERED: CHLORHEXIDINE GLUCONATE 2 % 1 PACK (2 CLOTHS) TOPICAL PRN (00:15)
[2017-07-13] MEDS ORDERED: POVIDONE IODINE 5% (ANTISEPSIS KIT) 4 APPLICATIONS EACH NARE PRN (00:15)
[2017-07-13] MEDS ORDERED: INSULIN HUMAN REGULAR 1,000 UNITS/10 ML VIAL SQ PRN (00:15)
[2017-07-13] MEDS ORDERED: METOPROLOL TARTRATE 25 MG TAB PO PRN (00:15)
[2017-07-13 07:31] VITALS: BP 118/74; PULSE 83; RESP 18; TEMP 97.6; O2SAT 83
[2017-07-13] MEDS: FLUoxetine HCL 20 MG CAP PO SCH (08:06)
[2017-07-13] MEDS: SODIUM CHLORIDE 0.9% FLUSH 10 ML FLUSH IV FLUSH SCH ×2 (08:08→20:24)
[2017-07-13] MEDS: DOCUSATE SODIUM 50 MG/SENNA 8.6 MG TAB PO SCH ×2 (08:08→21:00)
[2017-07-13] MEDS: PANTOPRAZOLE INJ 80 MG in SODIUM CHLORIDE 0.9% INJ 100 ML IV SCH ×2 (08:10→22:23)
[2017-07-13] MEDS: SODIUM CHLOR 0.9% 1000 ML INJ 1,000 ML IV SCH ×3 (08:10→15:39)
[2017-07-13] MEDS: MORPHINE SULFATE 2 MG/ML INJ IV PUSH PRN ×4 (09:30→23:42)
[2017-07-13] MEDS ORDERED: PNEUMOCOCCAL POLYVALENT INJ 25 MCG/0.5 ML SYR IM ONE (10:00)
[2017-07-13] MEDS ORDERED: INFLUENZA VIRUS VACCINE (QUADRIVALENT) 0.5 ML SYR IM ONE (10:00)
[2017-07-13 10:22] LABS: AUTOMATED NEUTROPHIL # 4.8 TH/MM3 (1.8-7.7); BASOPHIL % 0.6 % (0.0-2.0); EOSINOPHIL # 0.1 TH/MM3 (0-0.4); HEMATOCRIT 41.4 % (39.0-51.0); HEMOGLOBIN 14.3 GM/DL (13.0-17.0); LYMPH % 25.4 % (9.0-44.0); MEAN CELL VOLUME 94.6 FL (80.0-100.0); MEAN CORPUSCULAR HEMOGLOBIN 32.6 PG (27.0-34.0); MEAN CORPUSCULAR HGB CONC 34.4 % (32.0-36.0); MEAN PLATELET VOLUME 8.2 FL (7.0-11.0); MONO % 10.9 % (0.0-8.0); MONOCYTE # 0.8 TH/MM3 (0-0.9); NEUT % 62.1 % (16.0-70.0); PLATELET COUNT 217 TH/MM3 (150-450); RED BLOOD COUNT 4.38 MIL/MM3 (4.50-5.90); RED CELL DISTRIBUTION WIDTH 12.8 % (11.6-17.2); WHITE BLOOD COUNT 7.7 TH/MM3 (4.0-11.0)
[2017-07-13 10:44] LABS: ALBUMIN 3.5 GM/DL (3.4-5.0); AST (GOT) 40 U/L (15-37); BICARBONATE 29.9 MEQ/L (21.0-32.0); BLOOD UREA NITROGEN 11 MG/DL (7-18); CALCIUM 8.5 MG/DL (8.5-10.1); CHLORIDE 106 MEQ/L (98-107); CREATININE 1.16 MG/DL (0.60-1.30); GLOMERULAR FILTRATION RATE 79 ML/MIN (>89); GLUCOSE,RANDOM 77 MG/DL (74-106); SODIUM (NA) 139 MEQ/L (136-145)
[2017-07-13 10:46] LABS: ALT (GPT) 69 U/L (12-78)
[2017-07-13 10:48] LABS: ALKALINE PHOSPHATASE 51 U/L (45-117); TOTAL BILIRUBIN ADULT 0.6 MG/DL (0.2-1.0); TOTAL PROTEIN 6.8 GM/DL (6.4-8.2)
[2017-07-13 11:04] VITALS: BP 117/61; PULSE 91; RESP 18; TEMP 97.4; O2SAT 96
--- NOTE | 2017-07-13 11:53 | HHI.FPPN ---
Subjective Remarks No acute events overnight. Patient is doing well this AM. He still complains of RUQ abdominal pain. He reports that is unchanged from yesterday. Discussed with him about results of Gallbladder US and possible need for HIDA scan. He reports receiving one in the past. He states that he has had no episodes of vomiting. He denies CP, SOB, fevers, and diarrhea. (Sayra Presley MD R1) Objective Vitals Vital Signs Date Time Temp Pulse Resp B/P (MAP) Pulse Ox O2 Delivery O2 Flow Rate FiO2 07/13/17 11:04 97.4 91 18 117/61 (79) 96 07/13/17 07:31 97.6 83 18 118/74 (89) 83 07/12/17 19:33 98.2 90 16 144/69 (94) 95 07/12/17 16:58 18 07/12/17 16:19 95 21 07/12/17 16:04 96.1 93 18 132/90 (104) 95 07/12/17 15:19 I/O 07/12/17 07/12/17 07/12/17 07/13/17 07/13/17 07/13/17 07:00 15:00 23:00 07:00 15:00 23:00 Intake Total 35 ml 1000 ml Balance 35 ml 1000 ml Intake IV Total 35 ml 1000 ml (Sayra Presley MD R1) Result Diagram: 07/13/17 0932 07/13/17 0932 Objective Remarks O. GENERAL: pleasant, lying in bed SKIN: Warm and dry. HEAD: Normocephalic. EYES: No scleral icterus. No injection or drainage. NECK: Supple, trachea midline. No JVD or lymphadenopathy. CARDIOVASCULAR: Regular rate and rhythm without murmurs, gallops, or rubs. RESPIRATORY: Breath sounds equal bilaterally. No accessory muscle use. GASTROINTESTINAL: tenderness in RUQ upon palpation, positive Juan's sign, +BS , non-distended, no masses, no hepatosplenomegaly, no rebound tenderness EXTREMITIES: No cyanosis, or edema. NEUROLOGICAL: Awake, alert, and oriented x 3. Non-focal. (Sayra Presley MD R1) A/P Assessment and Plan 22 yr old M w/ hx of PUD admitted for hematemesis and RUQ abdominal pain Discharge Planning Case management consult. (Sayra Presley MD R1) Attending Attestation Patient seen and examined. Case reviewed and discussed with the resident team. Agree with plan of care as discussed with me and documented in the resident note. (Aurora Hernandez MD) Problem List: (1) Hematemesis ICD Codes: K92.0 - Hematemesis Status: Acute Plan: Hx of Peptic Ulcer Disease 4 years ago. Several episodes of hematemesis in the ED. * GI consulted, appreciated recs * H/H stable * AST and ALT mildly elevated * Hemoccult negative * Abdominal X-ray normal * Gallbladder US limited to patient's body habitus. Liver unremarkable. Possible gallbladder sludge. Need for HIDA scan. * Held home omeprazole 20mg PO BID * Continue protonix * NPO, plan for EGD today (2) Abdominal pain ICD Codes: R10.9 - Unspecified abdominal pain Status: Acute Plan: please see plan above (3) Depression ICD Codes: F32.9 - Major depressive disorder, single episode, unspecified Plan: Continue home med, Prozac 40mg PO daily (4) Nutrition, metabolism, and development symptoms ICD Codes: R63.8 - Other symptoms and signs concerning food and fluid intake Plan: Diet: NPO after midnight Fluids: 140mls/hr MIVF vitals q4h, monitor I & Os DVT ppx: SCDs (Sayra Presley MD R1) Problem Qualifiers (1) Hematemesis: Qualified Codes: K92.0 - Hematemesis (2) Abdominal pain: Qualified Codes: R10.11 - Right upper quadrant pain Sayra Presley MD R1 Jul 13, 2017 11:53 Aurora Hernandez MD Jul 13, 2017 12:07
[2017-07-13] MEDS ORDERED: PROPOFOL 200 MG/20 ML AMP IV ONE (12:00)
[2017-07-13] MEDS ORDERED: ePHEDrine/NS 25 MG/5 ML SYRINGE IV ONE (12:00)
[2017-07-13] MEDS ORDERED: LIDOCAINE HCL 1% PF 5 ML SYRINGE OTHER ONE (12:00)
--- NOTE | 2017-07-13 15:08 | GIPROC ---
[facility] [address] [facility]. [facility], [address] EGD PROCEDURE REPORT EXAM DATE: 07/13/2017 PATIENT NAME: Pallavi Mehta MR #: [id number] BIRTHDATE: 1995 ATTENDING: Radha Hamilton MD ORDER #: [id number] SCOOPING MACHINE TENDER: Tnaa Del Cid and Ainsley Trimble STATUS: inpatient INDICATIONS: The patient is a 22 yr old male here for an EGD due to abdominal pain, reflux PROCEDURE PERFORMED: EGD w/ biopsy MEDICATIONS: None and Per Anesthesia. TOPICAL ANESTHETIC: none CONSENT: The patient understands the risks and benefits of the procedure and understands that these risks include, but are not limited to: sedation, allergic reaction, infection, perforation and/or bleeding. Alternative means of evaluation and treatment include, among others: physical exam, x-rays, and/or surgical intervention. The patient elects to proceed with this endoscopic procedure. medical equipment was checked for proper function. Hand hygiene and appropriate measures for infection prevention was taken. After the risks, benefits and alternatives of the procedure were thoroughly explained, Informed consent was verified, confirmed and timeout was successfully executed by the treatment team. The patient was anesthetized with topical anesthesia and the Pentax [id number] endoscope was introduced through the mouth and advanced to the second portion of the duodenum. Retroflexed views revealed a hiatal hernia The gastroscope was then slowly withdrawn and removed. Duodenum normal-biopsy gastritis antrum-biopsy bile in stomach -suctioned esophagitis distal esophagus -biopsy, biopsy midesophagus r/o eosinophilic esophagitis. ADVERSE EVENTS: There were no complications. IMPRESSIONS: 1. Duodenum normal-biopsy gastritis antrum-biopsy bile in stomach -suctioned esophagitis distal esophagus -biopsy, biopsy midesophagus r/o eosinophilic esophagitis 2. Retroflexed views revealed a hiatal hernia RECOMMENDATIONS: 1. Await biopsy results. Biopsy results will not be ready for 7-10 days. If you don't hear from us in two weeks, call our office for biopsy results. 2. Anti-reflux regimen 3. HIDA scan trial of Carafate 1 gm po bid PATIENT CONDITION: stable DISPOSITION: Inpatient REPEAT EXAM: Return 1 year EGD Radah Hamilton MD eSigned: Radha Hamilton MD 07/13/2017 3:08 PM cc: PATIENT NAME: Pallavi Mehta MR#: [id number]
[2017-07-13] MEDS: SUCRALFATE 1 GM TAB PO SCH (16:09)
[2017-07-13 16:18] VITALS: BP 106/59; PULSE 83; RESP 18; TEMP 98.4; O2SAT 96
[2017-07-13 21:14] VITALS: BP 119/58; PULSE 91; RESP 18; TEMP 97.6; O2SAT 96
[2017-07-13 23:49] VITALS: BP 120/67; PULSE 86; RESP 18; TEMP 97.7; O2SAT 96
[2017-07-14] VITALS (7 sets, daily range): BP systolic 117–128; BP diastolic 64–68; PULSE 83–100; RESP 18–20; TEMP 97.7–98.6; O2SAT 95–99
[2017-07-14] MEDS: SODIUM CHLOR 0.9% 1000 ML INJ 1,000 ML IV SCH ×4 (01:11→20:52)
[2017-07-14] MEDS: DOCUSATE SODIUM 50 MG/SENNA 8.6 MG TAB PO SCH ×2 (09:15→20:50)
[2017-07-14] MEDS: SODIUM CHLORIDE 0.9% FLUSH 10 ML FLUSH IV FLUSH SCH ×2 (09:15→20:51)
[2017-07-14] MEDS: FLUoxetine HCL 20 MG CAP PO SCH (09:15)
[2017-07-14] MEDS: SUCRALFATE 1 GM TAB PO SCH ×2 (09:15→15:53)
--- NOTE | 2017-07-14 09:50 | HHI.FPPN ---
Subjective Remarks No acute events overnight. Pt complains of unchanged RUQ abdominal pain. Able to tolerate diet after endoscopic procedure yesterday. He has had no episodes of vomiting. Afebrile. VSS. Denies CP, SOB, fevers, and diarrhea. (Sayra Presley MD R1) Objective Vitals Vital Signs Date Time Temp Pulse Resp B/P (MAP) Pulse Ox O2 Delivery O2 Flow Rate FiO2 07/14/17 08:00 98.6 97 18 117/67 (84) 96 07/14/17 03:26 97.9 84 18 118/68 (85) 95 07/14/17 01:47 97 21 07/13/17 23:49 97.7 86 18 120/67 (84) 96 07/13/17 21:14 97.6 91 18 119/58 (78) 96 07/13/17 16:18 98.4 83 18 106/59 (75) 96 07/13/17 15:10 97.6 87 18 117/76 (90) 97 Room Air 07/13/17 11:04 97.4 91 18 117/61 (79) 96 I/O 07/13/17 07/13/17 07/13/17 07/14/17 07/14/17 07/14/17 07:00 15:00 23:00 07:00 15:00 23:00 Intake Total 1500 ml Balance 1500 ml Intake IV Total 1000 ml Other 500 ml (Sayra Presley MD R1) Result Diagram: 07/13/17 0932 07/13/17 0932 Objective Remarks O. GENERAL: pleasant, lying in bed SKIN: Warm and dry. HEAD: Normocephalic. EYES: No scleral icterus. No injection or drainage. NECK: Supple, trachea midline. No JVD or lymphadenopathy. CARDIOVASCULAR: Regular rate and rhythm without murmurs, gallops, or rubs. RESPIRATORY: Breath sounds equal bilaterally. No accessory muscle use. GASTROINTESTINAL: moderate tenderness in RUQ upon palpation, positive Juan's sign, +BS, non-distended, no masses, no hepatosplenomegaly, no rebound tenderness EXTREMITIES: No cyanosis, or edema. NEUROLOGICAL: Awake, alert, and oriented x 3. Non-focal. (Sayra Presley MD R1) A/P Assessment and Plan 22 yr old M w/ hx of PUD admitted for hematemesis and RUQ abdominal pain Discharge Planning Case management consult. (Sayra Presley MD R1) Attending Attestation Patient seen and examined. Case reviewed and discussed with the resident team. Agree with plan of care as discussed with me and documented in the resident note. (Aurora Hernandez MD) Problem List: (1) Hematemesis ICD Codes: K92.0 - Hematemesis Status: Acute Plan: Hx of Peptic Ulcer Disease 4 years ago. Several episodes of hematemesis in the ED. * GI consulted, appreciated recs * H/H stable * AST and ALT mildly elevated * Hemoccult negative * Abdominal X-ray normal * Gallbladder US limited to patient's body habitus. Liver unremarkable. Possible gallbladder sludge. Need for HIDA scan. * Held home omeprazole 20mg PO BID * Continue Protonix * Patient tolerated endoscopic procedure well yesterday, awaiting duo/stomach/ esophagus pathology results * Plan for HIDA scan today (2) Abdominal pain ICD Codes: R10.9 - Unspecified abdominal pain Status: Acute Plan: please see plan above (3) Depression ICD Codes: F32.9 - Major depressive disorder, single episode, unspecified Plan: Continue home med, Prozac 40mg PO daily (4) Nutrition, metabolism, and development symptoms ICD Codes: R63.8 - Other symptoms and signs concerning food and fluid intake Plan: Diet: NPO Fluids: 140mls/hr MIVF vitals q4h, monitor I & Os DVT ppx: SCDs (Sayra Presley MD R1) Problem Qualifiers (1) Hematemesis: Qualified Codes: K92.0 - Hematemesis (2) Abdominal pain: Qualified Codes: R10.11 - Right upper quadrant pain Sayra Presley MD R1 Jul 14, 2017 09:50 Aurora Hernandez MD Jul 14, 2017 14:18
[2017-07-14] MEDS: MORPHINE SULFATE 2 MG/ML INJ IV PUSH PRN ×3 (10:56→20:51)
--- NOTE | 2017-07-14 10:58 | HHI.GIFU ---
Subjective Remarks Resting in bed. Continues to have RUQ pain. States no significant improvement. Going for HIDA today. (Isela Da Silva) Objective Vitals I&O Vital Signs Date Time Temp Pulse Resp B/P (MAP) Pulse Ox O2 Delivery O2 Flow Rate FiO2 07/14/17 08:00 98.6 97 18 117/67 (84) 96 07/14/17 03:26 97.9 84 18 118/68 (85) 95 07/14/17 01:47 97 21 07/13/17 23:49 97.7 86 18 120/67 (84) 96 07/13/17 21:14 97.6 91 18 119/58 (78) 96 07/13/17 16:18 98.4 83 18 106/59 (75) 96 07/13/17 15:10 97.6 87 18 117/76 (90) 97 Room Air 07/13/17 11:04 97.4 91 18 117/61 (79) 96 I/O 07/13/17 07/13/17 07/13/17 07/14/17 07/14/17 07/14/17 07:00 15:00 23:00 07:00 15:00 23:00 Intake Total 1500 ml Balance 1500 ml Intake IV Total 1000 ml Other 500 ml Imaging Last Impressions Gall Bladder Ultrasound 07/12/17 0000 Signed Impressions: Service Date/Time: Wednesday, July 12, 2017 15:19 - CONCLUSION: 1. Extremely limited examination due to patient's body habitus. The pancreas and hepatic vasculature could not be identified. 2. Visualized portions of the liver are grossly unremarkable. 3. Possible gallbladder sludge and may be a minimal amount of pericholecystic fluid although again, anatomic detail is limited. Dayron Sheth MD Abdomen X-Ray 07/12/17 0000 Signed Impressions: Service Date/Time: Wednesday, July 12, 2017 12:17 - CONCLUSION: Radiographically benign abdomen. Dayron Sheth MD Physical Exam HEENT: Normocephalic; atraumatic; no jaundice. CHEST: CTA CARDIAC: RRR ABDOMEN: Soft, nondistended, RUQ tenderness; no hepatosplenomegaly; bowel sounds are present in all four quadrants. EXTREMITIES: No clubbing, cyanosis, or edema. SKIN: Normal; no rash; no jaundice. FINISH CLEANER: No focal deficits; alert and oriented times three. (Isela Da Silva) Assessment and Plan Plan ASSESSMENT: - Hematemesis. N/V x 2 days prior to admission. Hx PUD 4 years ago. EGD ()---> 1. Duodenum normal-biopsy gastritis antrum-biopsy bile in stomach -suctioned esophagitis distal esophagus -biopsy, biopsy midesophagus r/o eosinophilic esophagitis 2. Retroflexed views revealed a hiatal hernia. Pathology pending. PPI/Carafate. - RUQ pain with elevated LFTs. Pt has significant RUQ tenderness on exam. AST and ALT mildly elevated. No hx of liver disease. Rare ETOH use. US (07/12/17)---> Extremely limited examination due to the patient's body habitus. The pancreas and hepatic vasculature could not be identified. Visualized portions of the liver are grossly unremarkable. Possible gallbladder sludge and may be a minimal amount of pericholecystic fluid although again, anatomic detail is limited. Continues to have RUQ pain, no significant change. HIDA pending. - Severe GERD with breakthrough symptoms. Takes PPI with BID dosing at home, but still with breakthrough symptoms 3-4 times a week. Protonix Gtt. PLAN: - HEBER after HIDA scan - HIDA scan - Await pathology from EGD - Protonix/Carafate - Monitor labs - Supportive care - Further recommendations to follow based on results of above - Pt seen and examined by Dr. Hamilton and myself and this note is written on her behalf (Isela Da Silva) Physician Comments seen, examined agree with above ct noted, states pain not related to food, feels is more related to crunching down-we will order mri thoracic spine we can also offer a colonoscopy if agrees, at this time would wait appreciated general surgery eval (Radha Hamilton MD) Isela Da Silva Jul 14, 2017 10:58 Radha Hamilton MD Jul 14, 2017 20:19
--- NOTE | 2017-07-14 11:55 | RADRPT ---
EXAM DATE/TIME: 07/14/2017 09:23 [facility] COMPARISON: US ABDOMEN - GALLBLADDER, July 12, 2017, 15:19. INDICATIONS : Abdominal pain, nausea and vomiting. DOSE: 4.2 mCi Tc99m Mebrofenin IV MEDICAL HISTORY : None SURGICAL HISTORY : None. ENCOUNTER: Initial ACUITY: 1 day PAIN SCALE: 4/10 LOCATION: Right upper quadrant TECHNIQUE: Following the intravenous administration of radiotracer, dynamic sequential images were performed wit h continuous acquisition. The patient terminated the study prematurely secondary to pain. FINDINGS: HEPATIC KINETICS: There is prompt uptake of radiotracer in the liver. No focal defects are seen. There is normal rate of washout from the hepatic parenchyma. BILIARY CLEARANCE: Activity is first seen in the extrahepatic biliary system at 10 minutes. There is normal excretion i nto the small bowel. GALLBLADDER: Activity is first seen in the gallbladder at 10 minutes. Common bile duct kinetics are normal and th ere is no evidence of biliary obstruction. BILIARY ENTRIC REFLUX: None observed. CONCLUSION: 1. Suboptimal examination which was terminated prematurely by the patient. 2. Normal gallbladder visualization and no evidence of biliary obstruction. Flavio Reid MD on July 14, 2017 at 11:51 Board Certified Radiologist. This report was verified electronically.
[2017-07-14] MEDS: PANTOPRAZOLE INJ 80 MG in SODIUM CHLORIDE 0.9% INJ 100 ML IV SCH ×2 (13:05→15:29)
[2017-07-14] MEDS ORDERED: DIATRIZOATE MEGLUM/DIATRIZOATE SOD 9 ML CUP PO ONE (15:30)
[2017-07-14] MEDS: HYDROmorphone HCL PF 1 MG/ML VIAL IV PUSH PRN ×2 (18:43→23:13)
--- NOTE | 2017-07-14 18:44 | MB ---
cc: MARYSOL JEFFERS MD, BEATRICE S. M.D. DATE OF CONSULTATION 07/14/17 REASON FOR CONSULTATION Right upper quadrant pain, possible gallbladder sludge. BRIEF HISTORY This is a very pleasant 22-year-old male who has at least a four-year history of peptic ulcer disease on Omeprazole for a previous history of ulcers. The patient about five days ago woke up with acid and bile in the back of his throat and a severe burning discomfort. He had emesis of a large amount of bilious fluid. He had a second similar episode over the next day and then the third day, there was some blood in the emesis as well. He eats a balanced diet normally, cooks healthy foods for himself. He has absolutely no problem eating fatty foods. He was admitted to the hospital, put on proton pump inhibitors and underwent upper endoscopy. Endoscopy demonstrated esophagitis and gastritis and bile reflux into the stomach. He was placed on a proton pump inhibitor drip and had persistent severe up to 10/10 right upper quadrant pain. An ultrasound was of poor quality, had difficulty visualizing the gallbladder he says due to abnormal anatomy is what the magnetic resonance technologist told him. The report shows poor quality, possible sludge, possible thickening, possible small amount of pericholecystic fluid. He underwent a HIDA scan which showed no obstruction of the cystic duct, but the scan was terminated early at the patient's request and there was no functional study of the gallbladder for biliary dyskinesia. The patient has drunk contrast in preparation for a CT abdomen and pelvis which has not been performed to this point in time. ALLERGIES He has no known drug allergies. PAST MEDICAL HISTORY 1. Depression 2. Previous peptic ulcer disease. PAST SURGICAL HISTORY Left inguinal hernia at six months of age the computer says for an undescended testicle but the patient said for an inguinal hernia. 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 He denies tobacco abuse. He has occasional alcohol use. Denies HIV or hepatitis risk factors. FAMILY HISTORY Significant for hypertension, hyperlipidemia and diabetes. REVIEW OF SYSTEMS He denies unusual bleeding tendencies or ever being on blood thinning medications. No history of asthma, bronchitis, pneumonia, heart disease, liver or kidney disease. No history of seizures. No other coinciding system problems. PHYSICAL EXAMINATION GENERAL: A young bearded male who is really in no acute distress. He is pleasant and cooperative for the exam. He does comment he gets a sharp severe knife-like stabbing pain in the right upper quadrant. It is not crampy in nature. The morphine takes the edge off. VITAL SIGNS: His temperature is 97,7, pulse 100, respiratory rate 18, blood pressure 128/67, O2 sats 98%. HEENT: Normocephalic, atraumatic. His pupils are 4 round and reactive to light. His sclerae are anicteric. Oropharynx is clear without mucosal lesions. He has normal dentition. NECK: Supple without neuropathy. He has a midline trachea. No jugular venous distension. LUNGS: Clear and equal anteriorly bilaterally. HEART: Sounds are regular without murmur, rub or gallop. ABDOMEN: Soft and nondistended. He has normal bowel sounds and no abdominal bruits. He has no obvious hernias or scars except in the left groin there is a healed incision. He is tender to palpation in the right subcostal area. There is no tenderness on the rib cage itself, but certainly the right subcostal area he has tenderness. There is no flank pain to palpation. EXTREMITIES: No cyanosis, clubbing or edema. He has equal radial pulses. NEUROLOGIC: He is awake, alert, oriented. He has equal strong bilateral director software strength and no gross motor sensory deficit. LABORATORY DATA White count of 77 with 62% neutrophils. Hemoglobin is 14.3. Coagulation studies were normal. Chemistry showed a potassium of 3.8, a creatinine of 1.16. He has a total bilirubin of 0.6. His AST was 40. His ALT is 69, alk phos 51, lipase 81. His albumin is 3.5. IMAGING STUDIES Again the ultrasound showed extremely limited examination due to the patient's body habitus. Visualized portion of the liver were unremarkable. Possible gallbladder sludge and maybe a minimal amount of pericholecystic fluid is seen. Anatomic detail was limited. The patient had a plain film of the abdomen which showed a benign abdomen and he had a HIDA scan which showed suboptimal examination terminated prematurely by the patient. There was normal gallbladder visualization and no evidence of biliary obstruction. CT scan of the abdomen and pelvis is pending. ASSESSMENT A 22-year-old with significant history of peptic ulcer disease, prior ulcers and apparent esophagitis and gastritis on upper endoscopy as well as bile reflux into the stomach. He believe has also a small hiatal hernia. The patient had essential poor radiographic imaging via ultrasound of the gallbladder, question sludge, question pericholecystic fluid. A CT scan is pending. I discussed with the patient and his mother at the bedside as well as his father over the phone who listened in and asked questions about options for therapy. I discussed with the patient that surgical treatment of gastroesophageal reflux disease and hiatal hernia should be considered on an elective basis given the fact that he has been on proton pump inhibitors and has a history significant for reflux esophagitis. More acutely, his right upper quadrant pain needs further evaluation with the CT scan of the abdomen and pelvis. We will follow up after the CT is completed and share the findings. Ultimately, the patient may benefit from laparoscopy and laparoscopic cholecystectomy. In the interim, we will make available to him Dilaudid for breakthrough pain. MD LUPE Menon/ /5:58 PM /6:18 PM
--- NOTE | 2017-07-14 19:35 | RADRPT ---
EXAM DATE/TIME: 07/14/2017 18:55 [facility] COMPARISON: No previous studies available for comparison. INDICATIONS : Abdomen pain, right upper. IV CONTRAST: 97 cc Omnipaque 350 (iohexol) IV ORAL CONTRAST: Prescribed oral contrast ingested. RADIATION DOSE: 13.35 CTDIvol (mGy) MEDICAL HISTORY : Ulcers. Hernia, inguinal. SURGICAL HISTORY : Inguinal hernia repair. ENCOUNTER: Initial ACUITY: 1 day PAIN SCALE: 10/10 LOCATION: Right abdomen TECHNIQUE: Volumetric scanning of the abdomen and pelvis was performed. Using automated exposure control and adjustment of the mA and/or kV according to patient size, radiation dose was kept as low as reasonably achievable to obtain optimal diagnostic quality images. DICOM format image data is av ailable electronically for review and comparison. FINDINGS: There is diffuse decreased attenuation of the liver. No focal hepatic lesions are seen . No calcified gallstones are seen. Biliary ductal dilatation is not seen. The spleen is normal in size. There is a small 0.7 cm subtle hyperdensity seen at the inferior posterior aspect of the splee n. This is nonspecific. Statistically it likely represents a hemangioma. It is of doubtful signific ance. The pancreas, adrenal glands and kidneys appear normal. No hydronephrosis or renal stones are seen. The bowel is unremarkable. The appendix appears normal. Pelvic structures appear grossly intact. T here are minimal pleural effusions with accompanying areas of atelectasis or consolidation at the roshan g bases being worse on the right. The bony structures are intact. CONCLUSION: 1. Hepatic steatosis. 2. An acute abnormality in the abdomen and pelvis is not seen. 3. Minimal pleural effusions with accompanying areas of atelectasis. Jerson Potter MD on July 14, 2017 at 19:23 Board Certified Radiologist. This report was verified electronically.
[2017-07-15] VITALS (7 sets, daily range): BP systolic 106–128; BP diastolic 56–76; PULSE 87–100; RESP 16–20; TEMP 97.9–99; O2SAT 95–97
[2017-07-15] MEDS: SODIUM CHLOR 0.9% 1000 ML INJ 1,000 ML IV SCH ×4 (02:05→22:39)
[2017-07-15] MEDS: PANTOPRAZOLE INJ 80 MG in SODIUM CHLORIDE 0.9% INJ 100 ML IV SCH (02:05)
[2017-07-15] MEDS: SUCRALFATE 1 GM TAB PO SCH ×2 (05:34→16:56)
[2017-07-15] MEDS: FLUoxetine HCL 20 MG CAP PO SCH (07:29)
[2017-07-15] MEDS: DOCUSATE SODIUM 50 MG/SENNA 8.6 MG TAB PO SCH ×2 (07:29→20:03)
[2017-07-15] MEDS: MORPHINE SULFATE 2 MG/ML INJ IV PUSH PRN ×2 (07:30→11:01)
--- NOTE | 2017-07-15 08:44 | HHI.PR ---
Subjective Subjective Notes No real change, waiting to go for CXR, also has spine MRI ordered. Has not had blood drawn for hepatitis panel yet. Objective Vitals/I&O Vital Signs Date Time Temp Pulse Resp B/P (MAP) Pulse Ox O2 Delivery O2 Flow Rate FiO2 07/15/17 07:38 98.1 87 18 119/76 (90) 96 07/14/17 01:47 21 07/13/17 15:10 Room Air Abdomen: Non-distended, Other (tender R subcostal, maybe slightly less than yesterday.) Extremities: No edema A/P Assessment and Plan Persistent RUQ pain. GERD, esophagitis, gastritis on EGD. RUQ pain not really changed by PPIs, no more acid in back of throat though. CT reviewed by me and with Dr Potter of radiology. No inflammatory changes around GB, no pericholecystic fluid. Liver with fatty infiltration, ? steatohepaitis, hepatitis. Hepatitis panel ordered. Has small [facility]. Going for CXR and MR today. Will follow up results. If no findings to explain pain, he may benefit from dx laparoscopy, lap hill Tuesday. D/W patient and Mom in detail. You De Anda MD Jul 15, 2017 08:44
--- NOTE | 2017-07-15 09:38 | HHI.GIFU ---
Subjective Remarks Resting in bed. Continues to have RUQ pain. No n/v. Tolerating diet. Objective Vitals I&O Vital Signs Date Time Temp Pulse Resp B/P (MAP) Pulse Ox O2 Delivery O2 Flow Rate FiO2 07/15/17 07:38 98.1 87 18 119/76 (90) 96 07/15/17 04:00 99.0 92 20 121/58 (79) 96 07/15/17 00:00 98.1 100 20 126/56 (79) 95 07/14/17 23:42 18 07/14/17 21:27 18 07/14/17 21:22 98 07/14/17 20:00 98.3 97 20 118/64 (82) 97 07/14/17 16:05 97.7 100 18 128/67 (87) 98 07/14/17 11:56 98.0 83 18 118/65 (82) 99 I/O 07/14/17 07/14/17 07/14/17 07/15/17 07/15/17 07/15/17 06:59 14:59 22:59 06:59 14:59 22:59 Intake Total 1050 ml Balance 1050 ml Intake IV Total 1050 ml Imaging Last Impressions Hepatobiliary Scan Nuclear Medicine 07/14/17 0000 Signed Impressions: Service Date/Time: June 09:23 - CONCLUSION: 1. Suboptimal examination which was terminated prematurely by the patient. 2. Normal gallbladder visualization and no evidence of biliary obstruction. Flavio Reid MD Abdomen/Pelvis CT 07/14/17 0000 Signed Impressions: Service Date/Time: June 18:55 - CONCLUSION: 1. Hepatic steatosis. 2. An acute abnormality in the abdomen and pelvis is not seen. 3. Minimal pleural effusions with accompanying areas of atelectasis. Jerson Potter MD Gall Bladder Ultrasound 07/12/17 0000 Signed Impressions: Service Date/Time: Wednesday, July 12, 2017 15:19 - CONCLUSION: 1. Extremely limited examination due to patient's body habitus. The pancreas and hepatic vasculature could not be identified. 2. Visualized portions of the liver are grossly unremarkable. 3. Possible gallbladder sludge and may be a minimal amount of pericholecystic fluid although again, anatomic detail is limited. Dayron Sheth MD Abdomen X-Ray 07/12/17 0000 Signed Impressions: Service Date/Time: Wednesday, July 12, 2017 12:17 - CONCLUSION: Radiographically benign abdomen. Dayron Sheth MD Physical Exam HEENT: Normocephalic; atraumatic; no jaundice. CHEST: CTA CARDIAC: RRR ABDOMEN: Soft, nondistended, RUQ tenderness; no hepatosplenomegaly; bowel sounds are present in all four quadrants. EXTREMITIES: No clubbing, cyanosis, or edema. SKIN: Normal; no rash; no jaundice. FLOORWORKER LASTING: No focal deficits; alert and oriented times three. Assessment and Plan Plan ASSESSMENT: - Hematemesis. N/V x 2 days prior to admission. Hx PUD 4 years ago. EGD ()---> 1. Duodenum normal-biopsy gastritis antrum-biopsy bile in stomach -suctioned esophagitis distal esophagus -biopsy, biopsy midesophagus r/o eosinophilic esophagitis 2. Retroflexed views revealed a hiatal hernia. Pathology pending. PPI/Carafate. - RUQ pain with elevated LFTs. Pt has significant RUQ tenderness on exam. AST and ALT mildly elevated. No hx of liver disease. Rare ETOH use. US (07/12/17)---> Extremely limited examination due to the patient's body habitus. The pancreas and hepatic vasculature could not be identified. Visualized portions of the liver are grossly unremarkable. Possible gallbladder sludge and may be a minimal amount of pericholecystic fluid although again, anatomic detail is limited. Continues to have RUQ pain, no significant change. Does seem to be aggravated some with movement. (07/14/17)--> [facility] Normal gallbladder visualization and no evidence of biliary obstruction. GS following. ? Pleuritic or referred pain. CXR pending. MRI back pending. - Severe GERD with breakthrough symptoms. Takes PPI with BID dosing at home, but still with breakthrough symptoms 3-4 times a week. D/C Protonix Gtt. Protonix 40mg po BID PLAN: - HEBER - Await CXR - Await MRI - Await pathology - D/C Protonix Gtt - Protonix with BID dosing - Carafate - Monitor labs - Supportive care - Further recommendations to follow based on results of above - Pt seen and examined by Dr. Hamilton and myself and this note is written on her behalf Isela Da Silva Jul 15, 2017 09:38
--- NOTE | 2017-07-15 09:57 | RADRPT ---
EXAM DATE/TIME: 07/15/2017 08:46 [facility] COMPARISON: CT ABDOMEN & PELVIS W CONTRAST, July 14, 2017, 18:55. INDICATIONS : Shortness of breath. Prior atelectaisis on CT. MEDICAL HISTORY : None. SURGICAL HISTORY : None. ENCOUNTER: Initial ACUITY: 1 day PAIN SCORE: 0/10 LOCATION: Bilateral chest FINDINGS: There is mild bibasilar parenchymal opacity, slightly worse on the left than the right. No evidence o f effusion area cardiomediastinal contours are satisfactory. Thoracic skeleton appears grossly intact . CONCLUSION: Mild bibasilar parenchymal opacities Jerson Brantley MD on July 15, 2017 at 9:54 Board Certified Radiologist. This report was verified electronically.
--- NOTE | 2017-07-15 09:58 | RADRPT ---
EXAM DATE/TIME: 07/15/2017 09:22 [facility] COMPARISON: No previous studies available for comparison. INDICATIONS : Pain. MEDICAL HISTORY : Diabetes mellitus type 2. Hypertension. SURGICAL HISTORY : Inguinal hernia repair. ENCOUNTER: Initial ACUITY: 2 day PAIN SCORE: 3/10 LOCATION: T-spine. TECHNIQUE: Multiplanar multisequence MRI of the thoracic spine was performed. FINDINGS: VERTEBRA: Normal vertebral body height. Homogeneous marrow signal. ALIGNMENT: Normal. CORD: Normal position and configuration. T1-T2: Normal. T2-T3: The thecal sac has a normal diameter. No evidence of disc bulge or protrusion. T3-T4: The thecal sac has a normal diameter. No evidence of disc bulge or protrusion. T4-T5: The thecal sac has a normal diameter. No evidence of disc bulge or protrusion. T5-T6: The thecal sac has a normal diameter. No evidence of disc bulge or protrusion. T6-T7: The thecal sac has a normal diameter. No evidence of disc bulge or protrusion. T7-T8: The thecal sac has a normal diameter. No evidence of disc bulge or protrusion. T8-T9: The thecal sac has a normal diameter. No evidence of disc bulge or protrusion. T9-T10: The thecal sac has a normal diameter. No evidence of disc bulge or protrusion. T10-T11: The thecal sac has a normal diameter. No evidence of disc bulge or protrusion. T11-T12: The thecal sac has a normal diameter. No evidence of disc bulge or protrusion. T12-L1: The thecal sac has a normal diameter. No evidence of disc bulge or protrusion. CONCLUSION: Normal examination. Jerson Brantley MD on July 15, 2017 at 9:55 Board Certified Radiologist. This report was verified electronically.
[2017-07-15 10:11] LABS: ALBUMIN 3.9 GM/DL (3.4-5.0); AST (GOT) 27 U/L (15-37); BICARBONATE 26.2 MEQ/L (21.0-32.0); BLOOD UREA NITROGEN 10 MG/DL (7-18); CALCIUM 9.3 MG/DL (8.5-10.1); CHLORIDE 101 MEQ/L (98-107); CREATININE 1.09 MG/DL (0.60-1.30); GLOMERULAR FILTRATION RATE 85 ML/MIN (>89); GLUCOSE,RANDOM 94 MG/DL (74-106); SODIUM (NA) 135 MEQ/L (136-145)
[2017-07-15 10:19] LABS: ALKALINE PHOSPHATASE 58 U/L (45-117); ALT (GPT) 52 U/L (12-78); TOTAL BILIRUBIN ADULT 0.9 MG/DL (0.2-1.0)
--- NOTE | 2017-07-15 11:46 | HHI.FPPN ---
Subjective Remarks No acute events overnight. Mom present in room. Patient standing up to wash his hair. He complains of 7/10, sharp, constant RUQ abdominal pain. He reports that he pain has been unchanged from yesterday. He reports that morphine does not decrease his pain, but Dilaudid has helped decrease his pain from 9 to 7. He states that his pain is better when he is sleeping. He is tolerating a regular diet well. He is passing gas. No BM. He denies N/V, CP, and SOB. (Sayra Presley MD R1) Objective Vitals Vital Signs Date Time Temp Pulse Resp B/P (MAP) Pulse Ox O2 Delivery O2 Flow Rate FiO2 07/15/17 07:38 98.1 87 18 119/76 (90) 96 07/15/17 04:00 99.0 92 20 121/58 (79) 96 07/15/17 00:00 98.1 100 20 126/56 (79) 95 07/14/17 23:42 18 07/14/17 21:27 18 07/14/17 21:22 98 07/14/17 20:00 98.3 97 20 118/64 (82) 97 07/14/17 16:05 97.7 100 18 128/67 (87) 98 07/14/17 11:56 98.0 83 18 118/65 (82) 99 I/O 07/14/17 07/14/17 07/14/17 07/15/17 07/15/17 07/15/17 07:00 15:00 23:00 07:00 15:00 23:00 Intake Total 1050 ml Balance 1050 ml Intake IV Total 1050 ml (Sayra Presley MD R1) Result Diagram: 07/13/1732 07/15/17 0900 Imaging Last Impressions Thoracic Spine MRI 07/15/17 0000 Signed Impressions: Service Date/Time: Saturday, July 15, 2017 09:22 - CONCLUSION: Normal examination. Jerson Brantley MD Chest X-Ray 07/15/17 0000 Signed Impressions: Service Date/Time: Saturday, July 15, 2017 08:46 - CONCLUSION: Mild bibasilar parenchymal opacities Jerson Brantley MD Hepatobiliary Scan Nuclear Medicine 07/14/17 0000 Signed Impressions: Service Date/Time: June 09:23 - CONCLUSION: 1. Suboptimal examination which was terminated prematurely by the patient. 2. Normal gallbladder visualization and no evidence of biliary obstruction. Flavio Reid MD Abdomen/Pelvis CT 07/14/17 0000 Signed Impressions: Service Date/Time: June 18:55 - CONCLUSION: 1. Hepatic steatosis. 2. An acute abnormality in the abdomen and pelvis is not seen. 3. Minimal pleural effusions with accompanying areas of atelectasis. Jerson Potter MD Gall Bladder Ultrasound 07/12/17 0000 Signed Impressions: Service Date/Time: Wednesday, July 12, 2017 15:19 - CONCLUSION: 1. Extremely limited examination due to patient's body habitus. The pancreas and hepatic vasculature could not be identified. 2. Visualized portions of the liver are grossly unremarkable. 3. Possible gallbladder sludge and may be a minimal amount of pericholecystic fluid although again, anatomic detail is limited. Dayron Sheth MD Abdomen X-Ray 07/12/17 0000 Signed Impressions: Service Date/Time: Wednesday, July 12, 2017 12:17 - CONCLUSION: Radiographically benign abdomen. Dayron Sheth MD Objective Remarks O. GENERAL: pleasant, standing up, washing in hair SKIN: Warm and dry. HEAD: Normocephalic. EYES: No scleral icterus. No injection or drainage. NECK: Supple, trachea midline. No JVD or lymphadenopathy. CARDIOVASCULAR: Regular rate and rhythm without murmurs, gallops, or rubs. RESPIRATORY: Breath sounds equal bilaterally. No accessory muscle use. GASTROINTESTINAL: moderate tenderness in RUQ upon palpation, positive Juan's sign, +BS, non-distended, no masses, no hepatosplenomegaly, no rebound tenderness EXTREMITIES: No cyanosis, or edema. NEUROLOGICAL: Awake, alert, and oriented x 3. Non-focal. (Sayra Presley MD R1) A/P Assessment and Plan 22 yr old M w/ hx of PUD admitted for hematemesis and RUQ abdominal pain. GI and GS consulted. Discharge Planning GI, GS, case management consulted. Laparoscopic cholecystectomy tomorrow (Sayra Presley MD R1) Attending Attestation Patient seen and examined. Case reviewed and discussed with the resident team. Agree with plan of care as discussed with me and documented in the resident note. (Aurora Hernandez MD) Problem List: (1) Hematemesis ICD Codes: K92.0 - Hematemesis Status: Acute Plan: Hx of Peptic Ulcer Disease 4 years ago. Several episodes of hematemesis in the ED. * GI and GS consulted, appreciated recs * H/H stable * AST and ALT mildly elevated upon admission, but trending down * Hemoccult negative * Held home omeprazole 20mg PO BID * Continue Protonix BID and Carafate * Endoscopic procedure done on 07/12, awaiting duo/stomach/esophagus pathology results * NPO after midnight, plan for laparoscopic cholecystectomy tomorrow at 7:30 Pain control Tylenol 650 mg PO q4h pain 1-5 Dilaudid 2mg PO q6h pain 6-10 Dilaudid 0.5mg IV breakthrough pain Imaging * Abdominal X-ray normal * Gallbladder US limited to patient's body habitus. Liver unremarkable. Possible gallbladder sludge. * HIDA scan subtoptimal examination was terminated prematurely by patient. Normal gallbladder visualization and no evidence of biliary obstruction. * Lumbar Spine MRI wnl * CXR reveal mild bibasilar parenchymal opacities (2) Abdominal pain ICD Codes: R10.9 - Unspecified abdominal pain Status: Acute Plan: please see plan above (3) Depression ICD Codes: F32.9 - Major depressive disorder, single episode, unspecified Plan: Continue home med, Prozac 40mg PO daily (4) Nutrition, metabolism, and development symptoms ICD Codes: R63.8 - Other symptoms and signs concerning food and fluid intake Plan: Diet: NPO after midnight Fluids: 140mls/hr vitals q4h, monitor I & Os DVT ppx: SCDs (Sayra Presley MD R1) Problem Qualifiers (1) Hematemesis: Qualified Codes: K92.0 - Hematemesis (2) Abdominal pain: Qualified Codes: R10.11 - Right upper quadrant pain Sayra Presley MD R1 Jul 15, 2017 11:46 Aurora Hernandez MD Jul 15, 2017 15:30
[2017-07-15 12:25] LABS: HEPATITIS B CORE AB IGM NEGATIVE (NEGATIVE); HEPATITIS B SURFACE ANTIGEN NEGATIVE (NEGATIVE); HEPATITIS C AB IgG NEGATIVE (NEGATIVE)
[2017-07-15 12:27] LABS: HEPATITIS A AB IGM NEGATIVE (NEGATIVE)
[2017-07-15] MEDS: HYDROmorphone HCL PF 1 MG/ML VIAL IV PUSH PRN ×3 (13:57→23:57)
[2017-07-15] MEDS ORDERED: HYDROmorphone HCL 2 MG TAB PO PRN (14:30)
[2017-07-15] MEDS ORDERED: metroNIDAZOLE 500 MG INJ 100 ML IV SCH (14:45)
[2017-07-15] MEDS: SODIUM CHLORIDE 0.9% FLUSH 10 ML FLUSH IV FLUSH SCH ×2 (16:57→20:03)
[2017-07-15] MEDS: PANTOPRAZOLE SOD 40 MG DELAYED RELEASE TAB PO SCH (20:03)
[2017-07-15 21:02] LABS: % SATURATION IRON PROFILE 17.1 % (20-50); IRON (FE) 43 MCG/DL (65-175); TOTAL IRON BINDING CAPACITY 252 MCG/DL (250-450)
[2017-07-15 21:04] LABS: FERRITIN 319 NG/ML (26-388)
[2017-07-16] MEDS: SODIUM CHLOR 0.9% 1000 ML INJ 1,000 ML IV SCH ×2 (01:13→12:57)
[2017-07-16 03:16] VITALS: BP 119/70; PULSE 76; RESP 17; TEMP 98.4; O2SAT 95
[2017-07-16] MEDS ORDERED: LACTATED RINGER'S 1000 ML IV PRN (03:30)
[2017-07-16] MEDS ORDERED: CHLORHEXIDINE GLUCONATE 2 % 1 PACK (2 CLOTHS) TOPICAL PRN (03:30)
[2017-07-16] MEDS ORDERED: POVIDONE IODINE 5% (ANTISEPSIS KIT) 4 APPLICATIONS EACH NARE PRN (03:30)
[2017-07-16] MEDS: SUCRALFATE 1 GM TAB PO SCH (07:00)
[2017-07-16] MEDS ORDERED: BUPIVACAINE/EPINEPHRINE 0.25% PF 30 ML VIAL ONE (07:01)
[2017-07-16 07:21] VITALS: BP 122/76; PULSE 80; RESP 22; TEMP 97.5; O2SAT 96
--- NOTE | 2017-07-16 07:43 | HHI.FPPN ---
Subjective Remarks No acute events overnight. Afebrile, vitals stable. Patient states his abdominal pain is currently at about a 7/10. He states his pain is no longer worse with inspiration. Denies nausea or vomiting, fever/chills, chest pain, shortness of breath. (Jesse Zhang MD R2) Objective Vitals Vital Signs Date Time Temp Pulse Resp B/P (MAP) Pulse Ox O2 Delivery O2 Flow Rate FiO2 07/16/17 07:21 97.5 80 22 122/76 (91) 96 07/16/17 03:16 98.4 76 17 119/70 (86) 95 07/16/17 00:28 18 07/15/17 23:35 98.7 93 18 113/69 (84) 96 07/15/17 20:30 98.3 89 16 127/69 (88) 95 07/15/17 15:59 98.2 89 18 128/75 (92) 95 07/15/17 11:44 97.9 98 18 106/62 (77) 97 I/O 07/15/17 07/15/17 07/15/17 07/16/17 07/16/17 07/16/17 07:00 15:00 23:00 07:00 15:00 23:00 Intake Total 1000 ml 900 ml Balance 1000 ml 900 ml Intake IV Total 1000 ml 900 ml (Jesse Zhang MD R2) Result Diagram: 07/13/17 0932 07/15/17 0900 Objective Remarks GEN: pleasant, lying in bed, no apparent distress SKIN: Warm and dry. HEAD: Normocephalic. EYES: EOMI. No scleral icterus. No injection or drainage. NECK: Supple, trachea midline. No JVD. CARDIOVASCULAR: Regular rate and rhythm without murmurs, gallops, or rubs. RESPIRATORY: Breath sounds equal bilaterally. No accessory muscle use. GASTROINTESTINAL: nontender throughout, nondistended, +BS, no masses, no hepatosplenomegaly, no rebound tenderness. Laparoscopy incisions covered with steri-strips, no bleeding or drainage EXTREMITIES: No cyanosis, or edema. NEUROLOGICAL: Awake, alert, and oriented x 3. Non-focal. (Jesse Zhang MD R2) A/P Assessment and Plan 22 yr old M w/ hx of PUD admitted for hematemesis and RUQ abdominal pain. GI and GS consulted. Discharge Planning Stable for discharge home today Advised to follow-up with primary care physician and general surgery within 1 week (Jesse Zhang MD R2) Attending Attestation Patient seen and examined. Case reviewed and discussed with the resident team. Agree with plan of care as discussed with me and documented in the resident note. (Aurora Hernandez MD) Problem List: (1) Hematemesis ICD Codes: K92.0 - Hematemesis Status: Resolved Plan: Hx of Peptic Ulcer Disease 4 years ago. Several episodes of hematemesis in the ED, but no further episodes during hospitalization. * GI and GS consulted, appreciated recs * H/H stable * AST and ALT mildly elevated upon admission, now within normal limits * Hemoccult negative * Continue Protonix 40 mg po daily and Carafate * Endoscopic procedure done on 07/12, pathology results showing duodenal mucosa without significant histopathologic abnormality, biopsy of antrum of the stomach showing minimal chronic gastritis and negative for H. pylori, distal and mid esophageal biopsy negative for intestinal metaplasia dysplasia or malignancy, Pain control Dilaudid 4mg PO q4h pain provided by general surgery Imaging * Abdominal X-ray normal * Gallbladder US limited to patient's body habitus. Liver unremarkable. Possible gallbladder sludge. * HIDA scan subtoptimal examination was terminated prematurely by patient. Normal gallbladder visualization and no evidence of biliary obstruction. * Thoracic Spine MRI wnl * CXR reveal mild bibasilar parenchymal opacities (2) Status post laparoscopic cholecystectomy ICD Codes: Z90.49 - Acquired absence of other specified parts of digestive tract Status: Acute Plan: General surgery consulted Patient is status post laparoscopic cholecystectomy 07/16 Stable for discharge today Further plan as above (3) Abdominal pain ICD Codes: R10.9 - Unspecified abdominal pain Status: Acute Plan: Plan as above Hepatitis panel negative Autoimmune workup per gastroenterology still pending at time of discharge (4) Depression ICD Codes: F32.9 - Major depressive disorder, single episode, unspecified Plan: Continue home Prozac 40mg PO daily (5) Nutrition, metabolism, and development symptoms ICD Codes: R63.8 - Other symptoms and signs concerning food and fluid intake Plan: Diet: Regular Fluids: PO DVT ppx: SCDs (Jesse Zhang MD R2) Problem Qualifiers (1) Hematemesis: Qualified Codes: K92.0 - Hematemesis (2) Abdominal pain: Qualified Codes: R10.11 - Right upper quadrant pain Jesse Zhang MD R2 Jul 16, 2017 07:43 Aurora Hernandez MD Jul 16, 2017 18:40
[2017-07-16] MEDS: ceFAZolin 2 GM PREMIX 50 ML IV SCH ×3 (08:00→08:48)
[2017-07-16] MEDS ORDERED: Post-op Orders (for Pharmacy) XX ONE (09:15)
[2017-07-16] MEDS ORDERED: LACTATED RINGER'S 1000 ML INJ 1,000 ML IV SCH (09:15)
[2017-07-16] MEDS ORDERED: SODIUM CHLORIDE 0.9% FLUSH 10 ML FLUSH IV FLUSH PRN (09:15)
--- NOTE | 2017-07-16 09:15 | PD.OP ---
Operative Report Date of Surgery: Jul 16, 2017 Preoperative Diagnosis: severe RUQ pain, abnormal US of GB, fatty infiltrated liver [facility] Postoperative Diagnosis: same Procedure: diagnostic laparoscopy, lap hill, lap liver biopsy with Biopty gun. Open repair [facility]. Anesthesia: general Surgeon: You De Anda Buzzsaw Operator(s): Meli :) Operation and Findings: Distended thin walled GB without inflammatory change, to path Large fatty infiltrated liver, biopsies to path No other intra abdominal pathology, normal appendix EBL 3 ml. You De Anda MD Jul 16, 2017 09:15
[2017-07-16] MEDS ORDERED: DO NOT ADM ANY ANTICOAGULANT DRUGS PRN (09:19)
[2017-07-16] MEDS ORDERED: DILA4TAB10 PO (09:20)
[2017-07-16] MEDS ORDERED: HYDROmorphone HCL 4 MG TAB PO PRN (09:30)
[2017-07-16] MEDS ORDERED: *RESP: ALBUTEROL 2.5 MG/3 ML NEB (PRN) PERIprocedural Use ONLY NEB ONE (09:33)
[2017-07-16] MEDS ORDERED: metroNIDAZOLE 500 MG INJ 100 ML IV ONE (10:00)
[2017-07-16] MEDS: DOCUSATE SODIUM 50 MG/SENNA 8.6 MG TAB PO SCH (11:28)
[2017-07-16] MEDS: PANTOPRAZOLE SOD 40 MG DELAYED RELEASE TAB PO SCH (11:29)
[2017-07-16] MEDS: FLUoxetine HCL 20 MG CAP PO SCH (11:30)
[2017-07-16] MEDS ORDERED: ROCURONIUM INJ 50 MG/5 ML SYRINGE IV PUSH ONE (12:00)
[2017-07-16] MEDS ORDERED: ONDANSETRON HCL 4 MG/2 ML VIAL IV PUSH ONE (12:00)
[2017-07-16] MEDS ORDERED: NEOSTIGMINE 3 MG/3 ML SYR IV ONE (12:00)
[2017-07-16] MEDS ORDERED: PHENYLEPH/NS 1000 MCG/10 ML SYR IV ONE (12:00)
[2017-07-16] MEDS ORDERED: PROPOFOL 200 MG/20 ML AMP IV ONE (12:00)
[2017-07-16] MEDS ORDERED: LIDOCAINE HCL 1% PF 5 ML SYRINGE OTHER ONE (12:00)
[2017-07-16] MEDS ORDERED: GLYCOPYRROLATE 1 MG/5 ML SYRINGE IV PUSH ONE (12:00)
[2017-07-16] MEDS ORDERED: DEXAMETHASONE SOD PHOS 4 MG/ML VIAL IV ONE (12:00)
[2017-07-16] MEDS ORDERED: MIDAZOLAM HCL 2 MG/2 ML VIAL IV ONE (12:00)
[2017-07-16 13:03] VITALS: BP 109/58; PULSE 77; RESP 20; TEMP 98.6; O2SAT 92
--- NOTE | 2017-07-16 13:21 | HHI.DCPOC ---
Discharge Care Plan Diagnosis: (1) Status post laparoscopic cholecystectomy Goals to Promote Your Health * To prevent worsening of your condition and complications, follow-up with a primary care physician and general surgeon 1 week after hospital discharge. Directions to Meet Your Goals Take your medications as prescribed Follow your dietary instruction Follow activity as directed Keep your appointments as scheduled Take your immunizations and boosters as scheduled If your symptoms worsen call your PCP, if no PCP go to Urgent Care Center or Emergency Room Smoking is Dangerous to Your Health. Avoid second hand smoke Call the 24-hour hour crisis hotline for domestic abuse at Jesse Zhang MD R2 Jul 16, 2017 13:21
[2017-07-16] MEDS ORDERED: CARA1TAB6 PO (13:24)
[2017-07-16] MEDS ORDERED: PROT40TA PO (13:24)
[2017-07-16] MEDS ORDERED: PERI PO (13:24)
[2017-07-16] MEDS: HYDROmorphone HCL PF 1 MG/ML VIAL IV PUSH PRN (13:52)
--- NOTE | 2017-07-16 14:53 | MP ---
cc: ROBERT BASILIO M.D., DAVID G. M.D. DATE OF SURGERY: 07/16/2017. PREOPERATIVE DIAGNOSIS: Severe right upper quadrant pain, abnormal ultrasound of the gallbladder fatty infiltrated liver, gastroesophageal reflux disease, esophagitis, gastritis, umbilical hernia. POSTOPERATIVE DIAGNOSES Severe right upper quadrant pain, abnormal ultrasound of the gallbladder fatty infiltrated liver, gastroesophageal reflux disease, esophagitis, gastritis, umbilical hernia. PROCEDURE PERFORMED: Diagnostic laparoscopy, laparoscopic cholecystectomy, laparoscopic liver biopsy with Biopty gun, open repair umbilical hernia. SURGEON: Dr. 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 Upper endoscopy did demonstrate gastritis and esophagitis clinically and biopsies were pending. With the proton pump inhibitor therapy, he did not have any improvement in his symptoms and had severe right subcostal pain. An ultrasound was performed of poor quality demonstrating possible sludge in the gallbladder and possible pericholecystic fluid. A CT scan of the abdomen and pelvis demonstrated a fatty infiltrated liver without evidence of inflammatory changes around the gallbladder. Hepatitis profile was negative. Discussion ensued with the patient and his parents about options for continued nonoperative therapy versus diagnostic laparoscopy, laparoscopic cholecystectomy, biopsy of the liver. They wished to proceed with surgical treatment. INTRAOPERATIVE FINDINGS: Distended thin walled gallbladder without inflammatory change removed and sent to pathology. Large fatty infiltrated liver Biopty gun biopsies removed and sent to pathology. No other obvious intra-abdominal pathology and normal appearing appendix, a normal soft duodenum, a normal omentum, normal loops of small bowel, normal colon in the right upper quadrant. The stomach appeared normal. There was no large hiatal hernia seen. ESTIMATED BLOOD LOSS: 3 mL. DESCRIPTION OF THE PROCEDURE IN DETAIL: The patient was identified as Pallavi Mehta and taken to the operating room and placed in the supine position. Sequential compression devices were placed on bilateral lower extremities. Following induction of adequate general endotracheal anesthesia, the patient's abdomen was prepped and draped in the usual sterile fashion with Betadine. A time-out procedure was performed. Following completion of the time-out procedure to everyone's satisfaction within the room, the local anesthetic was injected in and around the umbilicus. A supraumbilical small transverse incision was carried out with a scalpel and the umbilical skin was lifted off the herniated pre-peritoneal fatty tissue using sharp dissection. The umbilical hernia defect which was about a centimeter in size was extended superiorly to allow for entry into the peritoneal cavity with the surgeon's finger through the fascial defect. The applied medical balloon Frank trocar was placed in the peritoneal cavity and its balloon inflated to C02 insufflation to a level of 15 mmHg ensued. The laparoscopic camera was placed into the peritoneal cavity with a 30 degree lens and survey of the intra-abdominal organs was performed. The omentum was generous and covered the intestines. The stomach and left lateral lobe of the liver appeared normal. The right lateral lobe of the liver, although full, was consistent with fatty infiltration and appeared otherwise normal. There are no obvious inflammatory changes in the right upper quadrant. The patient's urinary bladder was soft and full and there was no evidence of inguinal hernias. Two upper abdominal 5 mm trocars were then placed in peritoneal cavity under direct laparoscopic view after incision in the skin with a scalpel. The gallbladder was able to be retracted superiorly. It was distended and thin-walled. It was removed from the gallbladder fossa in a dome down technique using the harmonic scalpel. A small defect in the gallbladder wall occurred. A small amount of bile drainage occurred before it was secured with a #0 PDS Endoloop. Thin lee-colored bile was suctioned out with a suction device. The gallbladder was then removed fully from the gallbladder fossa, dividing the cystic artery. The cyst duct was isolated from surrounding tissues using 0-PDS Endoloops to ligate proximally distally and divide between the Endoloops using the harmonic scalpel. The gallbladder was then removed from the peritoneal cavity through the umbilical fascial defect and passed off field for pathologic evaluation. The right upper quadrant was irrigated with saline and suctioned out. The plan was made then to proceed with liver biopsy. Local anesthetic and a separate stab incision in the right upper quadrant in the subcostal position was performed and the Biopty gun was placed into the liver in three separate locations and liver biopsies performed. Small amount of bleeding at the biopsy site was controlled with the harmonic scalpel. Three nice slivers of liver tissue were removed and sent to pathology. Again there was no evidence of bleeding from the biopsy sites. Further laparoscopic evaluation occurred. The duodenum was a soft and had no inflammatory changes. The appendix was identified and photographed and had no inflammatory changes. Again the omentum was brought up out of the pelvis and the small bowel was uncovered. There was no inflammation in the small bowel, in the hepatic flexure of the colon and the transverse colon also appeared without inflammatory change. Remaining local anesthetic was placed in the right upper quadrant. Trocars were removed under direct visualization. There was no evidence of bleeding from the trocar sites. The abdomen was desufflated through the umbilical port which was then removed. The umbilical fascial defect was approximated with multiple interrupted inverted #0 Prolene sutures. The wounds were irrigated with saline. The umbilicus was reformed with 2-0 Vicryl and skin incisions were approximated with 4-0 Monocryl subcuticular sutures. Dressings were applied with Mastisol and half-inch brown Steri-Strips, gauze and Tegaderm were placed within the umbilicus. The patient tolerated the procedure without apparent complication. Sponge, needle and instrument counts were correct at the end of the case. MD LUPE Menon/GINETTE /9:07 AM /2:34 PM
--- NOTE | 2017-07-16 16:04 | HHI.DS ---
Discharge Summary Admission Date Jul 12, 2017 at 14:11 Discharge Date: Jul 16, 2017 Admitting Diagnosis hematemesis, PUD (1) Hematemesis Diagnosis: Principal Plan: Hx of Peptic Ulcer Disease 4 years ago. Several episodes of hematemesis in the ED, but no further episodes during hospitalization. * GI and GS consulted, appreciated recs * H/H stable * AST and ALT mildly elevated upon admission, now within normal limits * Hemoccult negative * Continue Protonix 40 mg po daily and Carafate * Endoscopic procedure done on 07/12, pathology results showing duodenal mucosa without significant histopathologic abnormality, biopsy of antrum of the stomach showing minimal chronic gastritis and negative for H. pylori, distal and mid esophageal biopsy negative for intestinal metaplasia dysplasia or malignancy, Pain control Dilaudid 4mg PO q4h pain provided by general surgery Imaging * Abdominal X-ray normal * Gallbladder US limited to patient's body habitus. Liver unremarkable. Possible gallbladder sludge. * HIDA scan subtoptimal examination was terminated prematurely by patient. Normal gallbladder visualization and no evidence of biliary obstruction. * Thoracic Spine MRI wnl * CXR reveal mild bibasilar parenchymal opacities ICD Codes: K92.0 - Hematemesis Status: Resolved (2) Status post laparoscopic cholecystectomy Diagnosis: Principal Plan: General surgery consulted Patient is status post laparoscopic cholecystectomy 07/16 Stable for discharge today Further plan as above ICD Codes: Z90.49 - Acquired absence of other specified parts of digestive tract Status: Acute (3) Abdominal pain Diagnosis: Principal Plan: Plan as above Hepatitis panel negative Autoimmune workup per gastroenterology still pending at time of discharge ICD Codes: R10.9 - Unspecified abdominal pain Status: Acute (4) Depression Diagnosis: Secondary Plan: Continue home Prozac 40mg PO daily ICD Codes: F32.9 - Major depressive disorder, single episode, unspecified (5) Nutrition, metabolism, and development symptoms Diagnosis: Secondary Plan: Diet: Regular Fluids: PO DVT ppx: SCDs ICD Codes: R63.8 - Other symptoms and signs concerning food and fluid intake Consultants Gastroenterology, general surgery Brief History 22 yr old w/ PMHx of PUD presents to the ED for hematemesis. No PCP. Patient reports having 2 day hx of worsening RUQ abdominal pain. He describes the pain as 8/10, constant, and sharp. He's had 2 episodes of slightly bloody vomiting in the past 2 days. He's had 2 episodes of slightly bloody vomiting in the ED. He endorses nausea and lightheadedness. Last meal he ate was last night, but was unable to keep it down. His abdominal pain is not related to food. He is able to drink liquids w/o difficulty. He denies diarrhea, fever, chills, CP, and SOB. He reports that this is his 3rd hospitalization for his abdominal pain. His most recent hospitalization was 4 years ago, an endoscopy was performed and revealed 5-6 ulcers per patient. he was placed on omeprazole 20mg BID. He does not recall the GI doctor that treated him. He does not recall being tested or treated for H.pylori. CBC/BMP: 07/13/17 0932 07/15/17 0900 Significant Findings Laboratory Tests Test 07/15/17 09:00 07/15/17 20:25 Erythrocyte Sedimentation Rate 21 mm/hr (0-15) Sodium Level 135 MEQ/L (136-145) Estimat Glomerular Filtration Rate 85 ML/MIN (>89) C-Reactive Protein 8.00 MG/DL (0.00-0.30) Iron Level 43 MCG/DL (65-175) Percent Iron Saturation 17.1 % (20-50) Imaging Gallbladder ultrasound 07/12: Limited examination due to patient's body habitus. Pancreas and hepatic vasculature cannot be identified. Visualized portions of the liver are grossly unremarkable. Possible gallbladder sludge and may be a minimal amount of pericholecystic fluid although anatomic detail was limited. Abdomen x-ray 07/12: Radiographically benign abdomen Thoracic Spine MRI 07/15/17 0000 Signed Impressions: Service Date/Time: Saturday, July 15, 2017 09:22 - CONCLUSION: Normal examination. Jerson Brantley MD Chest X-Ray 07/15/17 0000 Signed Impressions: Service Date/Time: Saturday, July 15, 2017 08:46 - CONCLUSION: Mild bibasilar parenchymal opacities Jerson Brantley MD Hepatobiliary Scan Nuclear Medicine 07/14/17 0000 Signed Impressions: Service Date/Time: June 09:23 - CONCLUSION: 1. Suboptimal examination which was terminated prematurely by the patient. 2. Normal gallbladder visualization and no evidence of biliary obstruction. Flavio Reid MD Abdomen/Pelvis CT 07/14/17 0000 Signed Impressions: Service Date/Time: June 18:55 - CONCLUSION: 1. Hepatic steatosis. 2. An acute abnormality in the abdomen and pelvis is not seen. 3. Minimal pleural effusions with accompanying areas of atelectasis. Jerson Potter MD PE at Discharge GEN: pleasant, lying in bed, no apparent distress SKIN: Warm and dry. HEAD: Normocephalic. EYES: EOMI. No scleral icterus. No injection or drainage. NECK: Supple, trachea midline. No JVD. CARDIOVASCULAR: Regular rate and rhythm without murmurs, gallops, or rubs. RESPIRATORY: Breath sounds equal bilaterally. No accessory muscle use. GASTROINTESTINAL: nontender throughout, nondistended, +BS, no masses, no hepatosplenomegaly, no rebound tenderness. Laparoscopy incisions covered with steri-strips, no bleeding or drainage EXTREMITIES: No cyanosis, or edema. NEUROLOGICAL: Awake, alert, and oriented x 3. Non-focal. Hospital Course Hemoccult was obtained which was negative. Patient was started on a Protonix drip. Gastroenterology was consulted. Patient made NPO for an EGD. EGD from results were negative, full results as above. Patient continued to have right upper quadrant abdominal pain despite negative findings on imaging. General surgery was consulted for consideration of possible cholecystectomy. Decision was made to proceed with cholecystectomy which was performed on 07/16. Patient's right upper quadrant abdominal pain improved following his surgery and patient was stable for discharge. He was advised to follow-up with a primary care physician and general surgeon. Workup per gastroenterology including anti-tissue transglutaminase, anti-endomysial antibodies, anti-smooth muscle antibodies, antimitochondrial antibodies, TARIK all pending at the time of this note. Pt Condition on Discharge: Stable Discharge Disposition: Discharge Home Discharge Instructions DIET: Follow Instructions for: As Tolerated, No Restrictions Activities you can perform: Weight Bearing as García Follow up Referrals: PCP Follow-up - 1 Week Surgical - 1 Week with You De Anda MD New Medications: Hydromorphone (Dilaudid) 4 Mg Tab 4 MG PO Q4H PRN for Pain Management, #20 TAB 0 Refills Pantoprazole (Protonix) 40 Mg Tab 40 MG PO DAILY for Reflux, #30 TAB 0 Refills Sennosides-Docusate Sodium (Gnp Senna Plus 8.6-50 mg) 8.6 Mg-50 Mg Tab 2 TAB PO BID, #30 TAB Sucralfate (Carafate) 1 Gram Tab 1 GM PO BIDAC, #60 TAB Continued Medications: Fluoxetine (Prozac) 40 Mg Cap 40 MG PO DAILY, #30 CAP 0 Refills Jesse Zhang MD R2 Jul 16, 2017 16:04
[2017-07-16] MEDS ORDERED: SODIUM CHLORIDE 0.9% FLUSH 10 ML FLUSH IV FLUSH SCH (21:00)
[2017-07-19 13:50] LABS: SMOOTH MUSCLE TOTAL AUTOABS Negative (Negative)
[2017-07-19 13:56] LABS: ALPHA-1-ANTITRYPSIN 167 mg/dL (100 - 190)
[2017-07-20 13:55] LABS: ENDOMYSIAL AB SCREEN ND (NEGATIVE); ENDOMYSIAL AB TITER ND (<1:5)
[2017-07-21 03:50] LABS: MITOCHONDRIAL ABS LESS THAN 20.0 U (<=20.0)
[2017-07-21 19:53] LABS: CERULOPLASMIN 25 mg/dL (18-36)
== END 2017-07-16 17:28 | disposition home or self-care (01) ==
LOC: NEPD 11:13 → NEDA 14:11 → NEPHCDU 15:28
PROVIDERS: ADMIT Family Medicine; ATTEND Family Medicine
DX: K92.0 Hematemesis (principal); K81.0 Acute cholecystitis; K21.0 Gastro-esophageal reflux disease with esophagitis; K42.9 Umbilical hernia without obstruction or gangrene; K29.50 Unspecified chronic gastritis without bleeding; R79.89 Other specified abnormal findings of blood chemistry; K76.0 Fatty (change of) liver, not elsewhere classified; R42 Dizziness and giddiness; R10.11 Right upper quadrant pain; R06.89 Other abnormalities of breathing; D64.9 Anemia, unspecified; F32.9 Major depressive disorder, single episode, unspecified; Z87.11 Personal history of peptic ulcer disease; Z23 Encounter for immunization
CPT/HCPCS: 00740; 00750; 00790; 43239; 47379; 47562; 49585; 71020; 72146; 74020; 74177; 76705; 78226; 80053; 80074; 82103; 82390; 82728; 82784; 82948; 83516; 83520; 83540; 83550; 83690; 85014; 85018; 85025; 85610; 85652; 85730; 86038; 86140; 86255; 86850; 86900; 86901; 88304; 88305; 88307; 88312; 88313; 90471; 90472; 90686; 90732; 94150; 94640; 96361; 96365; 96366; 96372; 96375; 96376; 99285; A9537; C9113; G0378; J0690; J1100; J1170; J2250; J2270; J2370; J2405; J2710; J3010; J7030; J7120; J7613; Q9963; Q9967; G0008; G0009; Q2038

== ENCOUNTER 2017-07-31 18:28 | Inpatient (IN) | payer BC ==
[~2017-07-31] VITALS: Ht 188 cm; Wt 110.2 kg
[~2017-07-31 18:28] MED LIST changes: +CARA1TAB6 PO; -EC-N500T7 PO; +PROT40TA PO; +PROZ40CA PO
[2017-07-31 18:29] VITALS: BP 112/70; PULSE 107; RESP 18; TEMP 98.6; O2SAT 98
[2017-07-31 18:47] VITALS: BP 111/59; PULSE 131; RESP 22; O2SAT 100
[2017-07-31 18:57] VITALS: BP 122/68; PULSE 106; RESP 22; TEMP 98.6; O2SAT 97
[2017-07-31] MEDS ORDERED: SODIUM CHLOR 0.9% 1000 ML INJ 1,000 ML IV ONE ×2 (19:15→20:15)
--- NOTE | 2017-07-31 19:18 | PD ---
HPI Chief Complaint: Abdominal Pain Time Seen by Provider: 19:03 Travel History International Travel<30 days: No Contact w/Intl Traveler<30days: No Traveled to known affect area: No History of Present Illness HPI The patient is a 22 year old male who presents to the [facility] emergency department with a history of abdominal pain that began again last night prior to eating dinner. The patient reports that the pain has gradually been worsening with time and is at this point severe. He reports the pain is sharp in character. He reports the pain is constant. He denies having any nausea or vomiting. He denies having any diarrhea. His last bowel movement was earlier today. He denies having any blood in his stool or black or tarry stools. The patient's recent history is complicated by being admitted to the hospital in September 11, 2016. The patient was admitted to the hospital related to hematemesis and complications of peptic ulcer disease. During that hospitalization the patient underwent laparoscopic cholecystectomy by Dr. De Anda. He reports that he had his follow-up appointment as an outpatient with Dr. De Anda on Tuesday. He reports that he was doing well prior to this postop period at this time, the patient reports having some left-sided chest pain. He denies having any shortness of breath. He denies having any lower extremity edema, calf pain, or erythema. The patient reports that he continues to be on Carafate, pantoprazole, and fluoxetine for depression. Otherwise he is not taking any other medications. Review of systems otherwise, the patient reports that he has had a dry cough recently. He denies having any recent fevers, congestion, neck pain,urinary symptoms, or neurologic symptoms. Repeatedly during my evaluation the patient gets lightheaded and has near- syncopal events. [facility] Past Medical History Narrative Medical The patient's past medical history is significant for depression, peptic ulcer disease. Blood Disorders: No Cancer: No Cardiovascular Problems: No Endocrine: No Gastrointestinal Disorders: Yes (PEPTIC ULCER) Immune Disorder: No Inguinal Hernia: Yes Implanted Vascular Access Dvce: No Musculoskeletal: No Neurologic: No Psychiatric: No Respiratory: No Immunizations Current: Yes Past Surgical History Narrative Surgical The patient's past surgical history is significant for having an undescended testicle surgically repaired, history of laparoscopic cholecystectomy. Cholecystectomy: Yes (2 weeks ago) Other Surgery: Yes (HERNIA REPAIR) Social History Alcohol Use: No Tobacco Use: No Substance Use: No Allergies-Medications (Allergen,Severity, Reaction): Coded Allergies: No Known Allergies (Unverified Allergy, Unknown, 07/31/17) Reported Meds & Prescriptions Reported Meds & Active Scripts Active Protonix (Pantoprazole Sodium) 40 Mg Tab 40 Mg PO DAILY Carafate (Sucralfate) 1 Gram Tab 1 Gm PO BIDAC Reported Prozac (Fluoxetine HCl) 40 Mg Cap 40 Mg PO DAILY Review of Systems Except as stated in HPI: all other systems reviewed are Neg General / Constitutional: No: Fever Eyes: No: Visual changes HENT: Positive: Lightheadedness, No: Headaches Cardiovascular: Positive: Chest Pain or Discomfort, Diaphoresis, No: Dyspnea on exertion Respiratory: Positive: Cough, No: Shortness of Breath Gastrointestinal: Positive: Abdominal Pain, Loss of Appetite, No: Nausea, Vomiting, Diarrhea, Hematemesis, Hematochezia, Changes in Bowel Habits, Indigestion Genitourinary: No: Dysuria Musculoskeletal: No: Pain Skin: No Rash Neurologic: No: Weakness, Focal Abnormalities, Change in Mentation, Slurred Speech, Sensory Disturbance Psychiatric: No: Depression Endocrine: No: Polydipsia Hematologic/Lymphatic: No: Easy Bruising Physical Exam Narrative General: The patient is a well-developed well-nourished male, uncomfortable appearing on arrival, pale appearing, diaphoretic, tachycardic. Head and Neck exam: Head is normocephalic atraumatic. Eyes: EOMI, pupils are equal round and reactive to light. Nose: Midline septum with pink mucous membranes Mouth: Dentition unremarkable. Moist mucus membranes. Posterior oropharynx is not erythematous. No tonsillar hypertrophy. Uvula midline. Airway patent. Neck: No palpable lymphadenopathy. No nuchal rigidity. No thyromegaly. Cardiovascular: Sinus tachycardia in the low 100s without murmurs, gallops, or rubs. No pulse deficit to the extremities on simultaneous auscultation and palpation of his radial artery. Lungs: Clear to auscultation bilaterally. No wheezes, rhonchi, or rales. Abdomen: Soft, with tenderness on palpation of the midepigastric area and area above the umbilicus as well as the right upper quadrant of the abdomen, most prominent in the area in the center of the abdomen, no other tenderness on palpation of the other quadrants of the abdomen. No guarding, rebound, or rigidity. Normal bowel sounds are audible. No tenderness on palpation of McBurney's point. Negative Juan's sign. Extremities: No clubbing, cyanosis, or edema. 2+ pulses in all 4 extremities. No calf tenderness on palpation. Back: No spinous process tenderness to palpation. No costovertebral angle tenderness to palpation. Neurologic Exam: Grossly nonfocal. Skin Exam: No rash noted. Intact skin that is warm and slightly diaphoretic. Data Data Last Documented VS Vital Signs Date Time Temp Pulse Resp B/P (MAP) Pulse Ox O2 Delivery O2 Flow Rate FiO2 07/31/17 21:09 109 18 104/51 (68) 98 Room Air 07/31/17 18:57 98.6 Orders Orders Electrocardiogram (07/31/17 19:03) Complete Blood Count With Diff (07/31/17 19:03) Comprehensive Metabolic Panel (07/31/17 19:) Creatine Kinase (Cpk) (07/31/17 19:03) Ckmb (Isoenzyme) Profile (07/31/17 19:03) Troponin I (07/31/17 19:03) B-Type Natriuretic Peptide (07/31/17 19:03) Prothrombin Time / Inr (Pt) (07/31/17 19:) Act Partial Throm Time (Ptt) (07/31/17 19:03) C-Reactive Protein (Crp) (07/31/17 19:03) Lipase (07/31/17 19:03) Urinalysis - C+S If Indicated (07/31/17 19:) D-Dimer (07/31/17 19:03) Chest, Single Ap (07/31/17 19:03) Ct Abd/Pel W Iv Contrast(Rout) (07/31/17 19:03) Iv Access Insert/Monitor (07/31/17 19:03) Ecg Monitoring (07/31/17 19:03) Oximetry (07/31/17 19:03) Sodium Chlor 0.9% 1000 Ml Inj (Ns 1000 M (07/31/17 19:15) Hydromorphone Pf Inj (Dilaudid Pf Inj) (07/31/17 20:15) Ondansetron Inj (Zofran Inj) (07/31/17 20:15) Sodium Chlor 0.9% 1000 Ml Inj (Ns 1000 M (07/31/17 20:15) Blood Culture (07/31/17 20:13) Type And Screen (07/31/17 20:13) Lactic Acid Sepsis Protocol (07/31/17 20:13) Ct Pulmonary Angiogram (07/31/17 20:56) Iohexol 350 Inj (Omnipaque 350 Inj) (07/31/17 21:35) Cefepime Inj (Maxipime Inj) (07/31/17 21:49) Azithromycin Inj (Zithromax Inj) (07/31/17 21:49) Admit Order (Ed Use Only) (07/31/17 22:25) Labs Laboratory Tests Test 07/31/17 19:00 07/31/17 19:10 07/31/17 20:20 07/31/17 21:05 Prothrombin Time 11.1 SEC Prothromb Time International Ratio 1.1 RATIO Activated Partial Thromboplast Time 25.2 SEC D-Dimer Quantitative (PE/DVT) 0.96 MG/L FEU Blood Urea Nitrogen 13 MG/DL Creatinine 1.23 MG/DL Random Glucose 98 MG/DL Total Protein 8.0 GM/DL Albumin 4.2 GM/DL Calcium Level 9.3 MG/DL Alkaline Phosphatase 63 U/L Aspartate Amino Transf (AST/SGOT) 23 U/L Alanine Aminotransferase (ALT/SGPT) 50 U/L Total Bilirubin 0.6 MG/DL Sodium Level 137 MEQ/L Potassium Level 3.5 MEQ/L Chloride Level 104 MEQ/L Carbon Dioxide Level 21.6 MEQ/L Anion Gap 11 MEQ/L Estimat Glomerular Filtration Rate 74 ML/MIN Total Creatine Kinase 50 U/L Troponin I LESS THAN 0.02 NG/ML C-Reactive Protein 1.10 MG/DL B-Type Natriuretic Peptide LESS THAN 2 PG/ML Lipase 80 U/L Lactic Acid Level 1.8 mmol/L White Blood Count 12.1 TH/MM3 Red Blood Count 3.89 MIL/MM3 Hemoglobin 12.5 GM/DL Hematocrit 35.8 % Mean Corpuscular Volume 92.1 FL Mean Corpuscular Hemoglobin 32.1 PG Mean Corpuscular Hemoglobin Concent 34.8 % Red Cell Distribution Width 12.5 % Platelet Count 255 TH/MM3 Mean Platelet Volume 8.7 FL Neutrophils (%) (Auto) 87.1 % Lymphocytes (%) (Auto) 5.4 % Monocytes (%) (Auto) 7.0 % Eosinophils (%) (Auto) 0.1 % Basophils (%) (Auto) 0.4 % Neutrophils # (Auto) 10.5 TH/MM3 Lymphocytes # (Auto) 0.7 TH/MM3 Monocytes # (Auto) 0.8 TH/MM3 Eosinophils # (Auto) 0.0 TH/MM3 Basophils # (Auto) 0.1 TH/MM3 CBC Comment DIFF FINAL Differential Comment MDM Medical Decision Making Medical Screen Exam Complete: Yes Emergency Medical Condition: Yes Medical Record Reviewed: Yes Interpretation(s) Last Impressions CT Angiography 07/31/[id number] Signed Impressions: Service Date/Time: Monday, July 31, 2017 21:11 - CONCLUSION: No pulmonary embolus. There is suspected mild atelectasis or consolidation at the lung bases with minimal bilateral effusions. Jerson Potter MD Chest X-Ray 07/31/[id number] Signed Impressions: Service Date/Time: Monday, July 31, 2017 19:35 - CONCLUSION: Normal examination. Jerson Potter MD Abdomen/Pelvis CT [id number]/31/[id number] Signed Impressions: Service Date/Time: Monday, July 31, 2017 20:32 - CONCLUSION: 1. Hepatic steatosis. 2. Minimal suspected atelectasis at the lung bases with accompanying minimal effusions. 3. Nonspecific enlargement of the spleen. Jerson Potter MD Differential Diagnosis Postoperative intra-abdominal abscess, versus choledocholithiasis, versus pancreatitis, versus pulmonary embolism, versus pneumonia Narrative Course During the course of the patients emergency department visit, the patients history, examination, and differential diagnosis were reviewed with the patient. The patient was placed on a manager monitoring with oximetry and frequent blood pressure monitoring. The patient had IV access obtained and blood work sent for analysis. The patient had an ECG done on arrival that shows a sinus tachycardia rate of 101, no acute ST segment elevation. QRS duration is 94 ms, QTC 371 ms. The patient was initially provided normal saline 1 L IV fluid bolus. A second liter of normal saline IV fluids was administered. Blood cultures 2 were drawn , lactic acid was sent for analysis. The patients laboratory studies were reviewed and remarkable for a white count of 12.1, hemoglobin 12.5, platelets 255 with 87.1 neutrophils. CMP is remarkable for GFR 74, CPK 50, troponin I less than 0.02, C-reactive protein 1.10, BNP less than 2, lactic acid 1.8. Lipase is 80, PT PTT within normal limits, d-dimer elevated at 0.96, CTA to rule out PE was ordered. Radiology studies were reviewed and remarkable for a chest x-ray that shows no acute abnormality. CTA to rule out PE shows a suspected mild atelectasis or consolidation at the lung bases with minimal bilateral effusions. CT scan of the abdomen and pelvis shows hepatic steatosis, minimal suspected atelectasis at the lung bases with accompanying minimal effusions, nonspecific enlargement of the spleen. The patients results were discussed with the patient, including the plan of care. I explained that further testing and/ or monitoring is indicated based on the patients history, examination, and/ or laboratory findings. Therefore, I recommended admission for additional evaluation. The patient expressed understanding and was agreeable with this plan. The patient was admitted to the hospital in guarded condition and sent to a bed under the care of the [facility]. Sepsis Criteria SIRS Criteria (2 or more): Heart rate over 90, RR > 20 or PaCO2 < 32, WBC > 90021, < 4000 or > 10% bands Sepsis Criteria (SIRS+source): Infect source susp/known Criteria Outcome: Meets SIRS criteria, Meets sepsis criteria Physician Communication Physician Communication The patient's case including history, pertinent physical examination findings, and laboratory studies were discussed with Dr. Dent. It was agreed that the patient would be admitted to the [facility]. Diagnosis Primary Impression: Sepsis Qualified Codes: A41.9 - Sepsis, unspecified organism Additional Impressions: Pneumonia Qualified Codes: J18.9 - Pneumonia, unspecified organism Syncope Qualified Codes: R55 - Syncope and collapse Admitting Information Admitting Physician Requests: Admit Marina Goetz MD Jul 31, 2017 19:18
[2017-07-31 19:35] VITALS: O2SAT 98
[2017-07-31] MEDS ORDERED: ONDANSETRON HCL 4 MG/2 ML VIAL IV PUSH ONE (20:15)
[2017-07-31] MEDS ORDERED: HYDROmorphone HCL PF 2 MG/ML VIAL IV PUSH ONE (20:15)
[2017-07-31 20:24] LABS: ANION GAP 11 MEQ/L (5-15); AST (GOT) 23 U/L (15-37); BICARBONATE 21.6 MEQ/L (21.0-32.0); BLOOD UREA NITROGEN 13 MG/DL (7-18); CHLORIDE 104 MEQ/L (98-107); GLOMERULAR FILTRATION RATE 74 ML/MIN (>89); POTASSIUM 3.5 MEQ/L (3.5-5.1); SODIUM (NA) 137 MEQ/L (136-145)
[2017-07-31 20:25] LABS: ALT (GPT) 50 U/L (12-78)
[2017-07-31 20:29] LABS: ALKALINE PHOSPHATASE 63 U/L (45-117); TOTAL BILIRUBIN ADULT 0.6 MG/DL (0.2-1.0)
--- NOTE | 2017-07-31 20:30 | RADRPT ---
EXAM DATE/TIME: 07/31/2017 19:35 [facility] COMPARISON: No previous studies available for comparison. INDICATIONS : Abdominal pain. MEDICAL HISTORY : Diabetes mellitus type II. Hypertension SURGICAL HISTORY : Inguinal hernia repair. ENCOUNTER: Initial ACUITY: 1 day PAIN SCORE: 8/10 LOCATION: Bilateral Abdomen FINDINGS: A single view of the chest demonstrates the lungs to be symmetrically aerated without evidence of mas s, infiltrate or effusion. The cardiomediastinal contours are unremarkable. Osseous structures are intact. CONCLUSION: Normal examination. Jerson Potter MD on July 31, 2017 at 20:28 Board Certified Radiologist. This report was verified electronically.
[2017-07-31 20:31] LABS: CREATINE KINASE 50 U/L (39-308)
[2017-07-31 20:50] LABS: APTT (PATIENT) 25.2 SEC (24.3-30.1); INTERNATIONAL NORMALIZED RATIO 1.1 RATIO; PROTHROMBIN TIME - PATIENT 11.1 SEC (9.8-11.6)
[2017-07-31 21:09] VITALS: BP 104/51; PULSE 109; RESP 18; O2SAT 98
--- NOTE | 2017-07-31 21:12 | RADRPT ---
EXAM DATE/TIME: 07/31/2017 20:32 [facility] COMPARISON: CT ABDOMEN & PELVIS W CONTRAST, July 14, 2017, 18:55. INDICATIONS : Abdominal pain 2 weeks post cholecystectomy. IV CONTRAST: 96 cc Omnipaque 350 (iohexol) IV ORAL CONTRAST: No oral contrast ingested. RADIATION DOSE: 12.49 CTDIvol (mGy) MEDICAL HISTORY : None SURGICAL HISTORY : Cholecystectomy. Inguinal hernia repair. ENCOUNTER: Initial ACUITY: 2 days PAIN SCALE: 7/10 LOCATION: Right upper quadrant abdomen TECHNIQUE: Volumetric scanning of the abdomen and pelvis was performed. Using automated exposure control and ad justment of the mA and/or kV according to patient size, radiation dose was kept as low as reasonably achievable to obtain optimal diagnostic quality images. DICOM format image data is available electro nically for review and comparison. FINDINGS: LOWER LUNGS: There is some mild suspected atelectasis at the posterior lung bases. Minimal bilateral pleural effus ions are present. LIVER: There is diffuse decreased attenuation to the liver. No focal hepatic lesions are seen. The gallbladd er is absent. SPLEEN: The spleen appears prominent measuring 16 cm in length. No focal splenic lesion is seen. PANCREAS: Within normal limits. KIDNEYS: Normal in size and shape. There is no mass, stone or hydronephrosis. ADRENAL GLANDS: Within normal limits. VASCULAR: There is no aortic aneurysm. BOWEL/MESENTERY: The stomach, small bowel, and colon demonstrate no acute abnormality. There is no free intraperitone al air or fluid. ABDOMINAL WALL: Within normal limits. RETROPERITONEUM: There is no lymphadenopathy. BLADDER: No wall thickening or mass. REPRODUCTIVE: Within normal limits. INGUINAL: There is no lymphadenopathy or hernia. MUSCULOSKELETAL: Within normal limits for patient age. CONCLUSION: 1. Hepatic steatosis. 2. Minimal suspected atelectasis at the lung bases with accompanying minimal effusions. 3. Nonspecific enlargement of the spleen. Jerson Potter MD on July 31, 2017 at 21:02 Board Certified Radiologist. This report was verified electronically.
[2017-07-31] MEDS ORDERED: IOHEXOL 350 MG/ML 10 ML VIAL (for RAD DIAG) IVCONTRAST ONE (21:35)
--- NOTE | 2017-07-31 21:39 | RADRPT ---
EXAM DATE/TIME: 07/31/2017 21:11 [facility] COMPARISON: No previous studies available for comparison. INDICATIONS : Elevated d-dimer; rule out pulmonary embolus. IV CONTRAST: 65 cc Omnipaque 350 (iohexol) IV RADIATION DOSE: 25.45 CTDIvol (mGy) MEDICAL HISTORY : None SURGICAL HISTORY : Cholecystectomy. Inguinal hernia repair. ENCOUNTER: Initial ACUITY: 2 days PAIN SCALE: 0/10 LOCATION: chest TECHNIQUE: Volumetric scanning of the chest was performed using a pulmonary embolism protocol MIP images were re constructed. Using automated exposure control and adjustment of the mA and/or kV according to patien t size, radiation dose was kept as low as reasonably achievable to obtain optimal diagnostic quality images. DICOM format image data is available electronically for review and comparison. Follow-up recommendations for detected pulmonary nodules are based at a minimum on nodule size and pa tient risk factors according to Fleischner Society Guidelines. FINDINGS: PULMONARY ARTERIES: No filling defects are seen in the pulmonary arteries through the segmental level. LUNGS: There is mild increased density at the posterior lung bases. PLEURAE: There are minimal bilateral pleural effusions. MEDIASTINUM: There is good visualization of the great vessels of the middle mediastinum. No evidence of mediastin al or hilar adenopathy/mass. MUSCULOSKELETAL: Within normal limits for patient age. MISCELLANEOUS: Please see the CT of the abdomen and pelvis report with the infra-diaphragmatic structures. CONCLUSION: No pulmonary embolus. There is suspected mild atelectasis or consolidation at the lung bases with min imal bilateral effusions. Jerson Potter MD on July 31, 2017 at 21:35 Board Certified Radiologist. This report was verified electronically.
[2017-07-31 21:41] LABS: AUTOMATED NEUTROPHIL # 10.5 TH/MM3 (1.8-7.7); BASOPHIL # 0.1 TH/MM3 (0-0.2); BASOPHIL % 0.4 % (0.0-2.0); EOSINOPHIL % 0.1 % (0.0-4.0); HEMATOCRIT 35.8 % (39.0-51.0); HEMO FLAGS DIFF FINAL; LYMPH % 5.4 % (9.0-44.0); LYMPHOCYTE # 0.7 TH/MM3 (1.0-4.8); MEAN CELL VOLUME 92.1 FL (80.0-100.0); MEAN CORPUSCULAR HEMOGLOBIN 32.1 PG (27.0-34.0); MEAN CORPUSCULAR HGB CONC 34.8 % (32.0-36.0); NEUT % 87.1 % (16.0-70.0); PLATELET COUNT 255 TH/MM3 (150-450); RED BLOOD COUNT 3.89 MIL/MM3 (4.50-5.90); RED CELL DISTRIBUTION WIDTH 12.5 % (11.6-17.2); WHITE BLOOD COUNT 12.1 TH/MM3 (4.0-11.0)
[2017-07-31] MEDS ORDERED: CEFEPIME INJ 2,000 MG in SODIUM CHLORIDE 0.9% INJ 100 ML IV STA (21:49)
[2017-07-31] MEDS ORDERED: AZITHROMYCIN INJ 500 MG in SODIUM CHLOR 0.9% 250 ML INJ 250 ML IV STA (21:49)
--- NOTE | 2017-07-31 23:01 | HHI.HP ---
HPI Service Family Medicine Primary Care Physician No Primary Care Physician Admission Diagnosis Syncope, sepsis, bilateral pneumonia Diagnoses: International Travel<30 Days: No Contact w/Intl Traveler<30days: No Known Affected Area: No History of Present Illness Patient is a 22-year-old male with a recent laparoscopic cholecystectomy who presents with chief complaints of left chest pain, right upper quadrant pain, syncope, bilateral leg pain. He was recently placed in observation here on 2016 for hematemesis. Upper endoscopy endoscopy showed normal duodenum, minimal chronic gastritis, and esophagus c/w mild reflux but no ulcers. During that observation, he had RUQ pain and was taken for lap hill, which showed mild chronic inflammation of the gallbladder wall. His RUQ pain was gone for 2 weeks following lap hill. He followed up with general surgeon Dr. De Anda last Tuesday and everything was doing well. He then established with primary care resident Dr. Flavio Osei on 07/28. He was feeling well until yesterday, Tuesday night, when he noticed his RUQ incision site was painful, it felt sharp. Then his RUQ pain spread. Today, his pain became progressively worse. He felt alternating "super cold and super hot. " At dinner the night of admission, he became "white as a ghost." Thus, he was brought by wheelchair to triage where he felt flushed, nausea, cold sweats, chest pain, then passed out and woke up in ED. He reports that he felt left- sided chest pain, which was improved with Dilaudid. His chest pain is still there but less now. He also reports that at one point in the ED, his left hand was stuck, immobile and unresponsive even to pain. He also c/o BL leg pain, from the calf down. Review of Systems Other + fever or chills No polyuria, polydipsia Denies vision changes, eye pain, hearing changes, rhinorrhea, sore throat Denies sore throat, runny nose, cough + chest pain, but no palpitations, shortness of breath + abdominal pain Denies constipation, diarrhea, nausea, vomiting, black or bloody stools No dysuria, hematuria + muscle pain in calves BL Denies joint pain, weakness + headache No rashes, itching Past Family Social History Past Medical History PMH: Depression: on Prozac Gastritis: on Sucralfate and pantoprazole Liver steatosis via liver biopsy on 07/16 PUD 2012 Healthcare maintenance: HIV/STD screening: declines BMI 33.8 Exercise 5 hours a week Diet: eats healthy BP: 128/82 Lipids: will order Hepatitis panel: negative Flu shot: up to date for Past Surgical History orchiopexy as child lap hill umbilical hernia repair with lap hill Surgeries: Cholecystectomy 07/16/17 Inguinal hernia as child Reported Medications Reported Meds & Active Scripts Active Protonix (Pantoprazole Sodium) 40 Mg Tab 40 Mg PO DAILY Carafate (Sucralfate) 1 Gram Tab 1 Gm PO BIDAC Reported Prozac (Fluoxetine HCl) 40 Mg Cap 40 Mg PO DAILY Allergies: Coded Allergies: No Known Allergies (Unverified Allergy, Unknown, 07/31/17) Active Ordered Medications Current Medications Medications (Trade) Dose Ordered Sig/Alexandra Route Start Time Stop Time Status Last Admin Potassium Chloride/Sodium Chloride 1,000 ml @ 100 mls/hr Q10H IV 07/31/17 23:12 UNV (NS Flush) 2 ml UNSCH PRN IV FLUSH 07/31/17 23:15 UNV (NS Flush) 2 ml BID IV FLUSH 08/01/17 09:00 UNV Cefepime HCl 2000 mg/Sodium Chloride 100 ml @ 200 mls/hr Q8H IV 07/31/17 23:15 UNV Levofloxacin/ Dextrose 150 ml @ 100 mls/hr Q24H IV 07/31/17 23:15 UNV Vancomycin HCl 1000 mg/Sodium Chloride 250 ml @ 250 mls/hr ONCE ONCE IV 07/31/17 23:15 08/01/17 00:14 UNV Pharmacy Profile Note 0 ml @ 0 mls/hr UNSCH OTHER 07/31/17 23:15 UNV (Tylenol) 650 mg Q4H PRN PO 07/31/17 23:15 UNV (Zofran Inj) 4 mg Q6H PRN IV PUSH 07/31/17 23:15 UNV (Lovenox Inj) 40 mg Q24H SQ 07/31/17 23:15 UNV (Aspirin) 325 mg NOW PO 07/31/17 23:15 08/01/17 23:14 UNV (Zofran Inj) 4 mg Q6H PRN IVP 07/31/17 23:30 UNV (Tylenol) 650 mg Q6H PRN PO 07/31/17 23:30 UNV (Toradol Inj) 15 mg Q6H PRN IV PUSH 07/31/17 23:30 08/05/17 23:29 UNV (Toradol Inj) 30 mg Q6H PRN IV PUSH 07/31/17 23:30 08/05/17 23:29 UNV (Narcan Inj) 0.4 mg UNSCH PRN IV PUSH 07/31/17 23:30 UNV (Nahomy-Colace) 1 tab BID PO 08/01/17 09:00 UNV (Milk Of Magnesia Liq) 30 ml Q12H PRN PO 07/31/17 23:30 UNV (Senokot) 17.2 mg Q12H PRN PO 07/31/17 23:30 UNV (Dulcolax Supp) 10 mg DAILY PRN RECTAL 07/31/17 23:30 UNV (Lactulose Liq) 30 ml DAILY PRN PO 07/31/17 23:30 UNV (Dilaudid Pf Inj) 2 mg Q4H PRN IV PUSH 07/31/17 23:30 UNV Family History MGF FL at 50 and 80 PGM FL at 65 PGF of pulmonary fibrosis mom and dad had bariatric surg Family: Father age 52, living, diabetes Mother: 56, living, healthy Sister: age 18, thyroid disorder Social History The patient is supposed to walk this stage tomorrow to 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 He is looking at jobs in [place]. 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 SKIN: No rashes, + ecchymosis over RUQ incision. All laparoscopic incisions are well healing without surrounding erythema or purulence. No other lesions. Cool and dry. HEAD: Atraumatic. Normocephalic. EYES: Pupils equal round and reactive. Extraocular motions intact. No scleral icterus. No injection or drainage. ENT: Nose without bleeding, purulent drainage or septal hematoma. Difficult to see throat 2/2 large tongue but appears without erythema, tonsillar hypertrophy or exudate. Uvula midline. Airway patent. NECK: Trachea midline. No JVD or lymphadenopathy. Supple, nontender, no meningeal signs. CARDIOVASCULAR: Difficult to assess 2/2 body habitus but Regular rate and rhythm without murmurs, gallops, or rubs. RESPIRATORY: Difficult to assess 2/2 body habitus but Clear to auscultation. Breath sounds equal bilaterally. No wheezes, rales, or rhonchi. GASTROINTESTINAL: Abdomen soft, + tender to palpation of right flank, nondistended. No hepato-splenomegaly, or palpable masses. No guarding. MUSCULOSKELETAL: Extremities without clubbing, cyanosis, or edema. No joint tenderness, effusion, or edema noted. + calf tenderness and warmth, left greater than right. NEUROLOGICAL: Awake and alert. Cranial nerves II through XII grossly intact. Motor and sensory grossly within normal limits. Normal speech. Laboratory Laboratory Tests Test 07/31/17 19:10 07/31/17 20:20 07/31/17 21:05 Prothrombin Time 11.1 Prothromb Time International Ratio 1.1 Activated Partial Thromboplast Time 25.2 D-Dimer Quantitative (PE/DVT) 0.96 Blood Urea Nitrogen 13 Creatinine 1.23 Random Glucose 98 Total Protein 8.0 Albumin 4.2 Calcium Level 9.3 Alkaline Phosphatase 63 Aspartate Amino Transf (AST/SGOT) 23 Alanine Aminotransferase (ALT/SGPT) 50 Total Bilirubin 0.6 Sodium Level 137 Potassium Level 3.5 Chloride Level 104 Carbon Dioxide Level 21.6 Anion Gap 11 Estimat Glomerular Filtration Rate 74 Total Creatine Kinase 50 Troponin I LESS THAN 0.02 C-Reactive Protein 1.10 B-Type Natriuretic Peptide LESS THAN 2 Lipase 80 Lactic Acid Level 1.8 White Blood Count 12.1 Red Blood Count 3.89 Hemoglobin 12.5 Hematocrit 35.8 Mean Corpuscular Volume 92.1 Mean Corpuscular Hemoglobin 32.1 Mean Corpuscular Hemoglobin Concent 34.8 Red Cell Distribution Width 12.5 Platelet Count 255 Mean Platelet Volume 8.7 Neutrophils (%) (Auto) 87.1 Lymphocytes (%) (Auto) 5.4 Monocytes (%) (Auto) 7.0 Eosinophils (%) (Auto) 0.1 Basophils (%) (Auto) 0.4 Neutrophils # (Auto) 10.5 Lymphocytes # (Auto) 0.7 Monocytes # (Auto) 0.8 Eosinophils # (Auto) 0.0 Basophils # (Auto) 0.1 CBC Comment DIFF FINAL Differential Comment Date/Time Source Procedure Growth Status 07/31/17 20:25 Blood Peripheral Aerobic Blood Culture Pending Received 07/31/17 20:25 Blood Peripheral Anaerobic Blood Culture Pending Received Result Diagram: 07/31/17210407/31/[id number] Imaging Last Impressions CT Angiography 07/31/172055 Signed Impressions: Service Date/Time: Monday, July 31, 2017 21:11 - CONCLUSION: No pulmonary embolus. There is suspected mild atelectasis or consolidation at the lung bases with minimal bilateral effusions. Jerson Potter MD Chest X-Ray 07/31/171902 Signed Impressions: Service Date/Time: Monday, July 31, 2017 19:35 - CONCLUSION: Normal examination. Jerson Potter MD Abdomen/Pelvis CT 07/31/171902 Signed Impressions: Service Date/Time: Monday, July 31, 2017 20:32 - CONCLUSION: 1. Hepatic steatosis. 2. Minimal suspected atelectasis at the lung bases with accompanying minimal effusions. 3. Nonspecific enlargement of the spleen. Jerson Potter MD Course In the emergency department, he had 2 L of normal saline IV, CT abdomen/pelvis with IV contrast, chest x-ray, d-dimer, UA, lipase, CRP, a PTT, PT/INR, BNP, troponin, CK-MB, CPK, CMP, CBC, EKG, Zofran IV, Dilaudid IV, lactic acid, type and screen, blood culture, CT pulmonary angiogram, azithromycin IV, cefepime IV. Septic Shock Reassessment Septic shock perfusion: reassessment completed Caprini VTE Risk Assessment Caprini VTE Risk Assessment: No/Low Risk (score <= 1) Caprini Risk Assessment Model Point Value = 1 Point Value = 2 Point Value = 3 Point Value = 5 Age 41-60 Minor surgery BMI > 25 kg/m2 Swollen legs Varicose veins or History of unexplained or recurrent spontaneous Oral contraceptives or hormone replacement Sepsis (< 1 month) Serious lung disease, including pneumonia (< 1 month) Abnormal pulmonary function Acute myocardial infarction Congestive heart failure (< 1 month) History of inflammatory bowel disease Medical patient at bed rest Age 61-74 Arthroscopic surgery Major open surgery (> 45 min) Laparoscopic surgery (> 45 min) Malignancy Confined to bed (> 72 hours) Immobilizing plaster cast Central venous access Age >= 75 History of VTE Family history of VTE Factor V Leiden Prothrombin 42422A Lupus anticoagulant Anticardiolipin antibodies Elevated serum homocysteine Heparin-induced thrombocytopenia Other congenital or acquired thrombophilia Stroke (< 1 month) Elective arthroplasty Hip, pelvis, or leg fracture Acute spinal cord injury (< 1 month) Prophylaxis Regimen Total Risk Factor Score Risk Level Prophylaxis Regimen 0-1 Low Early ambulation 2 Moderate Order ONE of the following: *Sequential Compression Device (SCD) *Heparin 5000 units SQ BID 3-4 Higher Order ONE of the following medications: *Heparin 5000 units SQ TID *Enoxaparin/Lovenox 40 mg SQ daily (WT < 150 kg, CrCl > 30 mL/min) *Enoxaparin/Lovenox 30 mg SQ daily (WT < 150 kg, CrCl > 10-29 mL/min) *Enoxaparin/Lovenox 30 mg SQ BID (WT < 150 kg, CrCl > 30 mL/min) AND/OR *Sequential Compression Device (SCD) 5 or more Highest Order ONE of the following medications: *Heparin 5000 units SQ TID (Preferred with Epidurals) *Enoxaparin/Lovenox 40 mg SQ daily (WT < 150 kg, CrCl > 30 mL/min) *Enoxaparin/Lovenox 30 mg SQ daily (WT < 150 kg, CrCl > 10-29 mL/min) *Enoxaparin/Lovenox 30 mg SQ BID (WT < 150 kg, CrCl > 30 mL/min) AND *Sequential Compression Device (SCD) Assessment and Plan Assessment and Plan Patient is a 22-year-old male with a recent laparoscopic cholecystectomy who presents with chief complaints of left chest pain, right upper quadrant pain, syncope, bilateral leg pain. He had subjective fever and chills, has a leukocytosis, has by basilar atelectasis versus pneumonia on CT scan. We'll treat for hospital-acquired pneumonia pending blood cultures and procalcitonin as this is the most likely explanation for his chest pain, abdominal pain, syncope, leg pains, and headache. Code Status Full code Problem List: (1) HAP (hospital-acquired pneumonia) ICD Codes: J18.9 - Pneumonia, unspecified organism Plan: Patient presents with CT scan concerning for bibasilar atelectasis versus pneumonia. Patient has been hospitalized and received IV antibiotics in the past 90 days. Thus, will treat as HAP. This also seems to be the most likely explanation for his leukocytosis, subjective fever and chills, chest pain , abdominal pain, syncope. -Cefepime 2 g IV every 8 hours -Levaquin 750 mg IV every 24 hours -Vancomycin IV per pharmacy consult -Likely plan to continue IV antibiotics pending results of blood culture and pro -calcitonin -Sputum culture -Trend CBC -Maintenance IV fluids with normal saline and 20 mg KCl IV at 150 mL per hour -Monitor intake and output -Monitor vital signs -O2 as needed -Tylenol, Toradol, Dilaudid when necessary for pain -Medications as needed for constipation -Zofran when necessary for nausea or vomiting (2) Syncope ICD Codes: R55 - Syncope and collapse Status: Acute Plan: Consider further workup of syncope. EKG is unremarkable. -Cardiac telemetry ordered -Consider Echocardiogram, EEG, outpatient Holter monitor, ultrasound of carotids , toxic/metabolic workup (3) Chest pain ICD Codes: R07.9 - Chest pain, unspecified Plan: Patient presents with left-sided chest pain with family history of early [place]. -Troponin and EKG every 6 hours -Aspirin now (4) Leg pain, bilateral ICD Codes: M79.604 - Pain in right leg; M79.605 - Pain in left leg Plan: Patient presents with bilateral leg pain from the calf down. On exam, his calves are slightly warm and tender to palpation, left greater than right. -Bilateral venous Doppler ultrasound of lower extremities (5) Abdominal pain ICD Codes: R10.9 - Unspecified abdominal pain Status: Acute Plan: -Consider general surgery consult if suspect abdominal pain is related to recent laparoscopic cholecystectomy (6) Nutrition, metabolism, and development symptoms ICD Codes: R63.8 - Other symptoms and signs concerning food and fluid intake Plan: Fluids: Maintenance fluids Electrolytes: Monitor and replete as necessary Nutrition: Regular basic diet DVT prophylaxis: Lovenox 40 mg subcutaneous daily Physician Certification 2 Midnight Certification Type: Admission for Inpatient Services Order for Inpatient Services The services are ordered in accordance with Medicare regulations or non- Medicare payer requirements, as applicable. In the case of services not specified as inpatient-only, they are appropriately provided as inpatient services in accordance with the 2-midnight benchmark. Estimated LOS (days): 2 2 days is the estimated time the patient will need to remain in the hospital, assuming treatment plan goals are met and no additional complications. Post-Hospital Plan: Home Problem Qualifiers (1) Syncope: Qualified Codes: R55 - Syncope and collapse Flavio Dent MD R2 Jul 31, 2017 23:01
[2017-07-31] MEDS ORDERED: ACETAMINOPHEN 325 MG TAB PO PRN ×2 (23:15→23:30)
[2017-07-31] MEDS ORDERED: SODIUM CHLORIDE 0.9% FLUSH 10 ML FLUSH IV FLUSH PRN (23:15)
[2017-07-31] MEDS ORDERED: VANCOMYCIN INJ 1,000 MG in SODIUM CHLOR 0.9% 250 ML INJ 250 ML IV ONE (23:15)
[2017-07-31] MEDS ORDERED: Vancomycin Consult Pharmacy 1 EA OTHER SCH (23:15)
[2017-07-31] MEDS ORDERED: ONDANSETRON HCL 4 MG/2 ML VIAL IV PUSH PRN (23:15)
[2017-07-31] MEDS ORDERED: ASPIRIN 325 MG TAB PO SCH (23:15)
[2017-07-31] MEDS ORDERED: KETOROLAC TROMETHAMINE 30 MG/ML (IVP) VIAL IV PUSH PRN (23:30)
[2017-07-31] MEDS ORDERED: NALOXONE HCL 0.4 MG/ML AMP IV PUSH PRN (23:30)
[2017-07-31] MEDS ORDERED: BISACODYL 10 MG SUPP RECTAL PRN (23:30)
[2017-07-31] MEDS ORDERED: LACTULOSE SYRUP 20 GM/30 ML CUP PO PRN (23:30)
[2017-07-31] MEDS ORDERED: SENNOSIDES 8.6 MG TAB PO PRN (23:30)
[2017-07-31] MEDS ORDERED: HYDROmorphone HCL PF 2 MG/ML VIAL IV PUSH PRN (23:30)
[2017-07-31] MEDS ORDERED: MAGNESIUM HYDROXIDE SUSP 30 ML CUP PO PRN (23:30)
[2017-07-31 23:39] VITALS: O2SAT 96
[2017-07-31 23:41] LABS: BLOOD, URINE NEG (NEG); GLUCOSE,URINE NEG (NEG); KETONE, URINE NEG (NEG); MUCUS URINE FEW /lpf (OCC); NITRITE,URINE NEG (NEG); SQUAMOUS EPITHELIAL CELL URINE <1 /hpf (0-5); URINE COLOR YELLOW (YELLW/STRAW)
[2017-07-31 23:44] LABS: COMMENT (UR) CULT NOT INDICATED; CULTURE IF INDICATED CULT NOT INDICATED
[2017-08-01] VITALS (16 sets, daily range): BP systolic 99–128; BP diastolic 55–65; PULSE 103–150; RESP 11–26; TEMP 97.2–102.9; O2SAT 95–100
[2017-08-01] MEDS ORDERED: LEVOFLOXACIN 750 MG PREMIX INJ 150 ML IV SCH
--- NOTE | 2017-08-01 00:24 | RADRPT ---
EXAM DATE/TIME: 07/31/2017 23:51 [facility] COMPARISON: No previous studies available for comparison. INDICATIONS : Bilateral leg pain. MEDICAL HISTORY : Peptic ulcer. Inguinal hernia. SURGICAL HISTORY : Cholecystectomy. Hernia repair. ENCOUNTER: Initial ACUITY: 1 day PAIN SCORE: 5/10 LOCATION: Bilateral legs. TECHNIQUE: Venous ultrasound of the left and right leg was performed from the inguinal ligament to the proximal calf. Real-time, color Doppler and spectral tracing, compression and augmentation techniques were us ed. FINDINGS: RIGHT LEG: There is normal compressibility of the deep venous system from the inguinal region to the proximal ca lf. No echogenic clot is seen in the lumen of the common femoral, femoral, popliteal, and posterior tibial veins. There is a normal response of the venous system to proximal and distal augmentation an d respiration. LEFT LEG: There is normal compressibility of the deep venous system from the inguinal region to the proximal ca lf. No echogenic clot is seen in the lumen of the common femoral, femoral, popliteal, and posterior tibial veins. There is a normal response of the venous system to proximal and distal augmentation an d respiration. CONCLUSION: No DVT. Jerson Potter MD on August 01, 2017 at 0:22 Board Certified Radiologist. This report was verified electronically.
[2017-08-01] MEDS: ENOXAPARIN SODIUM 40 MG/0.4 ML SYRINGE SQ SCH ×2 (00:54→23:41)
[2017-08-01] MEDS: NS + KCL 20 MEQ INJ 1,000 ML IV SCH ×5 (00:54→23:40)
[2017-08-01] MEDS ORDERED: VANCOMYCIN INJ 2,000 MG in SODIUM CHLORID 0.9% 500 ML INJ 500 ML IV ONE (01:00)
[2017-08-01] MEDS: KETOROLAC TROMETHAMINE 30 MG/ML (IVP) VIAL IV PUSH PRN ×2 (01:06→10:00)
[2017-08-01] MEDS ORDERED: LACTATED RINGER'S 1000 ML IV PRN (01:30)
[2017-08-01] MEDS ORDERED: POVIDONE IODINE 5% (ANTISEPSIS KIT) 4 APPLICATIONS EACH NARE PRN (01:30)
[2017-08-01] MEDS ORDERED: CHLORHEXIDINE GLUCONATE 2 % 1 PACK (2 CLOTHS) TOPICAL PRN (01:30)
[2017-08-01 02:21] LABS: BASOPHIL # 0.1 TH/MM3 (0-0.2); BASOPHIL % 0.5 % (0.0-2.0); HEMATOCRIT 37.7 % (39.0-51.0); HEMO FLAGS DIFF FINAL; LYMPH % 7.4 % (9.0-44.0); LYMPHOCYTE # 0.9 TH/MM3 (1.0-4.8); MEAN CORPUSCULAR HEMOGLOBIN 32.8 PG (27.0-34.0); MEAN CORPUSCULAR HGB CONC 35.3 % (32.0-36.0); MONO % 7.5 % (0.0-8.0); NEUT % 84.6 % (16.0-70.0); PLATELET COUNT 251 TH/MM3 (150-450); RED BLOOD COUNT 4.05 MIL/MM3 (4.50-5.90); RED CELL DISTRIBUTION WIDTH 12.6 % (11.6-17.2); WHITE BLOOD COUNT 11.8 TH/MM3 (4.0-11.0)
[2017-08-01 02:40] LABS: ANION GAP 7 MEQ/L (5-15); BICARBONATE 24.7 MEQ/L (21.0-32.0); BLOOD UREA NITROGEN 12 MG/DL (7-18); CHLORIDE 106 MEQ/L (98-107); GLOMERULAR FILTRATION RATE 82 ML/MIN (>89); POTASSIUM 3.6 MEQ/L (3.5-5.1); SODIUM (NA) 138 MEQ/L (136-145)
[2017-08-01] MEDS: HYDROmorphone HCL PF 2 MG/ML VIAL IV PUSH PRN ×2 (03:59→20:18)
[2017-08-01] MEDS: ONDANSETRON HCL 4 MG/2 ML VIAL IVP PRN (06:50)
[2017-08-01] MEDS ORDERED: CEFEPIME INJ 2,000 MG in SODIUM CHLORIDE 0.9% INJ 100 ML IV SCH (08:00)
[2017-08-01] MEDS ORDERED: Vancomycin Consult Pharmacy 1 EA OTHER SCH (08:30)
[2017-08-01] MEDS ORDERED: VANCOMYCIN INJ 1,500 MG in SODIUM CHLORID 0.9% 500 ML INJ 500 ML IV SCH (08:30)
[2017-08-01] MEDS ORDERED: SODIUM CHLOR 0.9% 1000 ML INJ 1,000 ML IV ONE ×3 (08:30→14:45)
[2017-08-01] MEDS: SODIUM CHLORIDE 0.9% FLUSH 10 ML FLUSH IV FLUSH SCH ×2 (08:44→20:18)
[2017-08-01 09:00] LABS: ALKALINE PHOSPHATASE 68 U/L (45-117); ALT (GPT) 122 U/L (12-78); ANION GAP 6 MEQ/L (5-15); AST (GOT) 111 U/L (15-37); BICARBONATE 26.7 MEQ/L (21.0-32.0); BLOOD UREA NITROGEN 12 MG/DL (7-18); CHLORIDE 107 MEQ/L (98-107); GLOMERULAR FILTRATION RATE 72 ML/MIN (>89); POTASSIUM 3.8 MEQ/L (3.5-5.1); SODIUM (NA) 140 MEQ/L (136-145); TOTAL BILIRUBIN ADULT 0.9 MG/DL (0.2-1.0)
--- NOTE | 2017-08-01 09:27 | PD.CONS ---
HPI Service Critical Care Medicine Consult Requested By Reason for Consult Sepsis. Primary Care Physician No Primary Care Physician History of Present Illness 22 y/o male presents with 3 day history of worsening abdominal pain. S/P lap cholecystectomy about 2 and half weeks ago with uneventful postop course. CTA chest benign, no PE. CT abdomen benign. US lower extremities no DVT. Afebrile and no leukocytosis until today. Temp 102 on floor associated with shaking chill , P 140s, SBP 106. Latest LFTs with elevated transaminases. Review of Systems Constitutional: COMPLAINS OF: Diaphoretic episodes, Fatigue, Fever, Chills, Dizziness Endocrine: DENIES: Heat/cold intolerance, Polydipsia, Polyuria, Polyphagia Eyes: DENIES: Blurred vision, Diplopia, Eye inflammation, Eye pain, Vision loss , Photosensitivity, Double Vision Ears, nose, mouth, throat: DENIES: Tinnitus, Hearing loss, Vertigo, Nasal discharge, Oral lesions, Throat pain, Hoarseness, Ear Pain, Running Nose, Epistaxis, Sinus Pain, Toothache, Odynophagia Respiratory: COMPLAINS OF: Shortness of breath Cardiovascular: COMPLAINS OF: Chest pain Gastrointestinal: COMPLAINS OF: Abdominal pain Genitourinary: DENIES: Sexual dysfunction, Urinary frequency, Urinary incontinence, Urgency, Hematuria, Dysuria, Nocturia, Penile Discharge, Testicular Pain, Testicular Swelling Musculoskeletal: DENIES: Joint pain, Muscle aches, Stiffness, Joint Swelling, Back pain, Neck pain Immunologic/allergic: DENIES: Eczema, Urticaria Neurologic: DENIES: Abnormal gait, Headache, Localized weakness, Paresthesias, Seizures, Speech Problems, Tremor, Poor Balance Psychiatric: COMPLAINS OF: Anxiety, Depression Past Family Social History Allergies: Coded Allergies: No Known Allergies (Unverified Allergy, Unknown, 07/31/17) Physical Exam Vital Signs Vital Signs Date Time Temp Pulse Resp B/P (MAP) Pulse Ox O2 Delivery O2 Flow Rate FiO2 08/01/17 08:30 150 08/01/17 08:11 100 Nasal Cannula 3.00 08/01/17 03:03 97.2 103 18 106/56 (73) 98 08/01/17 00:40 97.8 120 18 113/56 (75) 98 08/01/17 00:01 99.0 07/31/17 23:39 96 21 07/31/17 21:09 109 18 104/51 (68) 98 Room Air 07/31/17 19:35 98 Room Air 07/31/17 18:57 98.6 106 22 122/68 (86) 97 Room Air 07/31/17 18:47 131 22 111/59 (76) 100 Room Air 07/31/17 18:29 98.6 107 18 112/70 (84) 98 Physical Exam P 138, SBP 106, R 17, Sats 97% Head: Normal. Skin: Flushed, warm, diaphoretic. Neck: Supple, airway widely patent. Lungs: Clear, no adventitious sounds. Heart: Tachycardia, NL S1S2, no m,r. No JVD. Abdomen: Voluntary guarding, BA active, no peritoneal irritation. Extremities: Warm, flushed, well perfused. Neuro: Extremely anxious. Moves 4 limbs with 5/5 strength. Sensory intact. TODD. EOMI. Speech clear. Laboratory Laboratory Tests Test 07/31/17 19:00 07/31/17 19:10 07/31/17 20:20 07/31/17 21:05 Procalcitonin 0.08 Prothrombin Time 11.1 Prothromb Time International Ratio 1.1 Activated Partial Thromboplast Time 25.2 D-Dimer Quantitative (PE/DVT) 0.96 Blood Urea Nitrogen 13 Creatinine 1.23 Random Glucose 98 Total Protein 8.0 Albumin 4.2 Calcium Level 9.3 Alkaline Phosphatase 63 Aspartate Amino Transf (AST/SGOT) 23 Alanine Aminotransferase (ALT/SGPT) 50 Total Bilirubin 0.6 Sodium Level 137 Potassium Level 3.5 Chloride Level 104 Carbon Dioxide Level 21.6 Anion Gap 11 Estimat Glomerular Filtration Rate 74 Total Creatine Kinase 50 Troponin I LESS THAN 0.02 C-Reactive Protein 1.10 B-Type Natriuretic Peptide LESS THAN 2 Lipase 80 Lactic Acid Level 1.8 White Blood Count 12.1 Red Blood Count 3.89 Hemoglobin 12.5 Hematocrit 35.8 Mean Corpuscular Volume 92.1 Mean Corpuscular Hemoglobin 32.1 Mean Corpuscular Hemoglobin Concent 34.8 Red Cell Distribution Width 12.5 Platelet Count 255 Mean Platelet Volume 8.7 Neutrophils (%) (Auto) 87.1 Lymphocytes (%) (Auto) 5.4 Monocytes (%) (Auto) 7.0 Eosinophils (%) (Auto) 0.1 Basophils (%) (Auto) 0.4 Neutrophils # (Auto) 10.5 Lymphocytes # (Auto) 0.7 Monocytes # (Auto) 0.8 Eosinophils # (Auto) 0.0 Basophils # (Auto) 0.1 CBC Comment DIFF FINAL Differential Comment Test 07/31/17 23:20 08/01/17 02:08 08/01/17 07:53 Urine Color YELLOW Urine Turbidity CLEAR Urine pH 6.0 Urine Specific [place] GREATER THAN 1.050 Urine Protein TRACE Urine Glucose (UA) NEG Urine Ketones NEG Urine Occult Blood NEG Urine Nitrite NEG Urine Bilirubin NEG Urine Urobilinogen LESS THAN 2.0 Urine Leukocyte Esterase NEG Urine WBC 1 Urine Squamous Epithelial Cells <1 Urine Mucus FEW Microscopic Urinalysis Comment CULT NOT INDICATED White Blood Count 11.8 Red Blood Count 4.05 Hemoglobin 13.3 Hematocrit 37.7 Mean Corpuscular Volume 93.0 Mean Corpuscular Hemoglobin 32.8 Mean Corpuscular Hemoglobin Concent 35.3 Red Cell Distribution Width 12.6 Platelet Count 251 Mean Platelet Volume 8.7 Neutrophils (%) (Auto) 84.6 Lymphocytes (%) (Auto) 7.4 Monocytes (%) (Auto) 7.5 Eosinophils (%) (Auto) 0.0 Basophils (%) (Auto) 0.5 Neutrophils # (Auto) 10.0 Lymphocytes # (Auto) 0.9 Monocytes # (Auto) 0.9 Eosinophils # (Auto) 0.0 Basophils # (Auto) 0.1 CBC Comment DIFF FINAL Differential Comment Blood Urea Nitrogen 12 12 Creatinine 1.12 1.26 Random Glucose 109 84 Calcium Level 8.1 8.3 Sodium Level 138 140 Potassium Level 3.6 3.8 Chloride Level 106 107 Carbon Dioxide Level 24.7 26.7 Anion Gap 7 6 Estimat Glomerular Filtration Rate 82 72 Troponin I LESS THAN 0.02 LESS THAN 0.02 Total Protein 6.8 Albumin 3.4 Alkaline Phosphatase 68 Aspartate Amino Transf (AST/SGOT) 111 Alanine Aminotransferase (ALT/SGPT) 122 Total Bilirubin 0.9 Date/Time Source Procedure Growth Status 07/31/17 20:25 Blood Peripheral Aerobic Blood Culture Pending Received 07/31/17 20:25 Blood Peripheral Anaerobic Blood Culture Pending Received Result Diagram: 08/01/17 0208 08/01/17 0753 Assessment and Plan Assessment and Plan Assessment: 1. Fever. 2. Hypotension. 3. Transaminitis. 4. S/P cholecystectomy. 5. Severe anxiety. Plan: 1. Aggressive IV hydration. 2. Broad antibiotic coverage after cultures. 3. Lactic acid. 4. Lipase. 5. Urine > 50/hr. 6. Serial abdominal exams. Overall impression: Patient is suddenly critically ill with spiking fever and septic picture. Etiology unclear at present. Large spleen and transaminitis requires further investigation. Critical Care 45 mins Harjeet Guerrier MD Aug 01, 2017 09:27
[2017-08-01] MEDS: PIPERACIL-TAZO 4.5 GM PREMIX 100 ML IV SCH ×2 (10:07→18:15)
[2017-08-01 10:32] LABS: AUTOMATED NEUTROPHIL # 10.1 TH/MM3 (1.8-7.7); BASOPHIL % 0.3 % (0.0-2.0); EOSINOPHIL % 0.1 % (0.0-4.0); HEMATOCRIT 43.2 % (39.0-51.0); HEMO FLAGS DIFF FINAL; LYMPH % 11.7 % (9.0-44.0); LYMPHOCYTE # 1.4 TH/MM3 (1.0-4.8); MEAN CELL VOLUME 93.6 FL (80.0-100.0); MEAN CORPUSCULAR HEMOGLOBIN 31.9 PG (27.0-34.0); MEAN CORPUSCULAR HGB CONC 34.1 % (32.0-36.0); MONO % 5.5 % (0.0-8.0); NEUT % 82.4 % (16.0-70.0); PLATELET COUNT 220 TH/MM3 (150-450); RED BLOOD COUNT 4.62 MIL/MM3 (4.50-5.90); RED CELL DISTRIBUTION WIDTH 12.9 % (11.6-17.2); WHITE BLOOD COUNT 12.2 TH/MM3 (4.0-11.0)
[2017-08-01] MEDS: DOCUSATE SODIUM 50 MG/SENNA 8.6 MG TAB PO SCH ×2 (10:44→20:18)
[2017-08-01] MEDS: metroNIDAZOLE 500 MG INJ 100 ML IV SCH ×2 (11:26→18:45)
[2017-08-01 12:24] LABS: LACTIC ACID GHOST NOT REPORTABLE
[2017-08-01] MEDS: MORPHINE SULFATE 8 MG/ML INJ IV PUSH PRN ×3 (13:05→23:55)
--- NOTE | 2017-08-01 14:11 | HHI.FPPN ---
Subjective Remarks Saw patient this morning as he was in the middle of rapid response efforts. Nurse and family were at the bedside. Per report, he has been tachycardic up to the 150's. He has been running fevers this morning up to 102.8. He appears flushed and has acute delirium. Initiated immediate normal saline bolus and broadened antibiotic regimen. Called and discussed case with casework specialist, Dr. Guerrier, and general surgeon, Dr. De Anda. He was transferred to the ICU for closer monitoring and casework specialist will help to manage. Dr. De Anda will see the patient later in the day. Re-visited the patient this afternoon. Family and nurse are at bedside. He appears much better this afternoon. Pulse is down to 110. He is alert and oriented. He recognizes me, whereas he did not recognize me earlier this morning. He reports some epigastric pain that is mild to moderate, without guarding or rebound tenderness. He also reports left sided chest pain that is intermittent. Prior CTA was negative for a PE. He has atelectasis via imaging but no obvious pneumonia. He reports no coughing or sputum production. He reports no shortness of breath. He had nausea and vomiting that has improved. (Flavio Osei MD R3) Objective Vitals Vital Signs Date Time Temp Pulse Resp B/P (MAP) Pulse Ox O2 Delivery O2 Flow Rate FiO2 08/01/17 08:35 102.8 08/01/17 08:30 150 08/01/17 08:11 100 Nasal Cannula 3.00 08/01/17 08:00 102.9 143 26 128/64 (85) 96 08/01/17 07:40 144 08/01/17 03:03 97.2 103 18 106/56 (73) 98 08/01/17 00:40 97.8 120 18 113/56 (75) 98 08/01/17 00:01 99.0 07/31/17 23:39 96 21 07/31/17 21:09 109 18 104/51 (68) 98 Room Air 07/31/17 19:35 98 Room Air 07/31/17 18:57 98.6 106 22 122/68 (86) 97 Room Air 07/31/17 18:47 131 22 111/59 (76) 100 Room Air 07/31/17 18:29 98.6 107 18 112/70 (84) 98 I/O 07/31/17 07/31/17 07/31/17 08/01/17 08/01/17 08/01/17 07:00 15:00 23:00 07:00 15:00 23:00 Intake Total 2000 ml 1280 ml 1100 ml Balance 2000 ml 1280 ml 1100 ml Intake Oral 360 ml IV Total 2000 ml 920 ml 1100 ml # Voids 2 # Bowel Movements 0 (Flavio Osei MD R3) Result Diagram: 08/01/17 1010 08/01/17 0753 Objective Remarks AM physical exam: General: Obese young male lying in bed, appears flushed and confused, pulse is 150's, temperature 102.8 Skin: Flushed appearing, warm to touch, clammy HEENT: Normocephalic, no nasal discharge, normal pharynx, no conjunctivitis or scleral icterus Neck: No thyromegaly or lymphadenopathy CV: Tachycardic, regular rhythm, pulse rapid, cap refill is normal, appears flushed Lungs: CTAB, no respiratory distress Abdomen: Tender to palpation in the epigastric and RUQ regions, no guarding or rebound tenderness. Surgical sites are well healed without drainage or abscess. Ext: No calf tenderness or swelling. Neuro: Awake, somewhat lethargic, somewhat confused PM physical exam: General: Obese male, sitting up in bed, no acute distress, appears much better Skin: No longer flushed HEENT: Normocephalic, no scleral icterus CV: Tachycardic but improved, cap refill normal Lungs: CTAB Abdomen: Tender to palpation in epigastric and RUQ regions without guarding or rebound tenderness Neuro: Awake, alert, oriented X3 (Flavio Osei MD R3) A/P Assessment and Plan 22-year-old male with a recent laparoscopic cholecystectomy who presented with left chest pain, right upper quadrant pain, syncope, bilateral leg pain. He has fever, leukocytosis, RUQ and epigastric pain, and bibasilar atelectasis versus pneumonia on CT scan. Discharge Planning Pending clinical stability (Flavio Osei MD R3) Attending Attestation Medical rounds performed with Dr Osei,Case reviewed in detail, patient seen and examined, Agree with above documentation, See Orders Due to patients rapidly deteriorating condition authorized tranfer to [facility] (Wil Pisano MD) Problem List: (1) Severe sepsis ICD Codes: A41.9 - Sepsis, unspecified organism; R65.20 - Severe sepsis without septic shock Status: Resolved Plan: Tachycardia, fever, elevated lactic acid (2.9). Source of infection possibly abdominal in nature given epigastric pain and RUQ pain. No guarding or rebound tenderness on exam. Chest x-ray is negative for acute process while CT chest shows some bibasilar atelectasis. UA not suggesting infection. Liver enzymes normal on admission, now elevated to AST/ALT of 111/122. Lipase normal at admission. GFR dropped to 72. - Follow blood cultures. - Treat broadly with vancomycin, Zosyn, Flagyl. - Responded well to 1L bolus of normal saline - Continue IV fluids at 150 mls/hr - Monitor fluid status and vital signs carefully - Check influenza A/B antigens. - Keep in ICU with casework specialist consulted until stable, appreciate assistance of Dr. Guerrier. - Contacted Dr. De Anda, general surgery, to discuss case, he will see patient today. (2) Abdominal pain ICD Codes: R10.9 - Unspecified abdominal pain Status: Acute Plan: Recent laparoscopic cholecystectomy. Liver enzymes mildly elevated today , normal at admission. CT abdomen is normal. Post-cholecystectomy syndrome in differential. - Consulted Dr. De Anda, general surgeon. - Pain management: morphine, Toradol, Dilaudid PRN (3) Nutrition, metabolism, and development symptoms ICD Codes: R63.8 - Other symptoms and signs concerning food and fluid intake Plan: Fluids: Maintenance fluids with NS plus 20 KCl at 150 mls/hr Electrolytes: Monitor and replace as necessary Nutrition: Regular basic diet DVT prophylaxis: Lovenox 40 mg subcutaneous daily Protonix 40 mg daily (Flavio Osei MD R3) Problem Qualifiers (1) Abdominal pain: Qualified Codes: R10.11 - Right upper quadrant pain Flavio Osei MD R3 Aug 01, 2017 14:11 Wil Pisano MD Aug 02, 2017 21:31
--- NOTE | 2017-08-01 14:20 | PD.CONS ---
cc: You De Anda MD HPI Service General Surgery Consult Requested By Dr. Osei with Family Medicine Residency Program Reason for Consult S/p laparoscopic cholecystectomy with fever, chills and abdominal pain Primary Care Physician No Primary Care Physician History of Present Illness This is a 22 year old male with a past medical history of PUD and diagnostic laparoscopy, laparoscopic cholecystectomy, laparoscopic liver biopsy and open repair of umbilical hernia on July [address] De Anda. The patient tolerated the procedure well and was discharged home in stable condition. He followed up last Tuesday in the office with Dr. De Anda with no issues. He had an uneventful recovery until Tuesday evening when he developed severe abdominal pain. Tuesday he states he would go from chills to warm very quickly and reports two episodes of nausea and vomiting. He reports LEFT sided chest pain when he takes a deep breath. He denies any sick contacts. He came to the Emergency Room yesterday and a CT abdomen pelvis was complete which was only remarkable for an enlarged spleen. On admission he had a normal white blood cell count. A Chest CT angiogram was complete and showed no pulmonary embolus. Bilateral ultrasound of the lower extremitas was completed and shows no evidence of deep vein thrombosis. The patient was admitted to the Medical Surgical Unit and this morning during routine vital signs the patient was found to have a temperature of 102.9 and was persistently tachycardic in the 140- 150s. He was transferred to the Intensive Surgical Unit with concerns of sepsis. Blood cultures were obtained and the patient was started on antibiotics. After arriving to the [facility], the patient developed LEFT hand numbness and was unable to move his hand. A little while later, the patient developed bilateral leg numbness. The patient is accompanied by his Mother at the bedside. A General Surgery consultation has been requested. Review of Systems Constitutional: COMPLAINS OF: Fatigue, Fever, Chills, DENIES: Change in appetite Endocrine: DENIES: Polydipsia, Polyuria, Polyphagia Eyes: DENIES: Diplopia Ears, nose, mouth, throat: DENIES: Hearing loss Respiratory: DENIES: Apneas Cardiovascular: COMPLAINS OF: Chest pain, Syncope, Dyspnea on Exertion Gastrointestinal: COMPLAINS OF: Abdominal pain, Nausea, Vomiting, DENIES: Black stools Genitourinary: DENIES: Urgency, Hematuria Musculoskeletal: DENIES: Neck pain Integumentary: DENIES: Abnormal pigmentation Hematologic/lymphatic: DENIES: Bruising Immunologic/allergic: DENIES: Eczema Neurologic: DENIES: Headache, Localized weakness Psychiatric: DENIES: Confusion, Mood changes Past Family Social History Past Medical History PUD Past Surgical History diagnostic laparoscopy, laparoscopic cholecystectomy, laparoscopic liver biopsy and open repair of umbilical hernia on July [address] De Anda Reported Medications Protonix Carafate Prozac Allergies: Coded Allergies: No Known Allergies (Unverified Allergy, Unknown, 07/31/17) Active Ordered Medications Current Medications Medications (Trade) Dose Ordered Sig/Alexandra Route Start Time Stop Time Status Last Admin Potassium Chloride/Sodium Chloride 1,000 ml @ 150 mls/hr Q6H40M IV 07/31/17 23:12 08/01/17 10:14 (NS Flush) 2 ml UNSCH PRN IV FLUSH 07/31/17 23:15 (NS Flush) 2 ml BID IV FLUSH 08/01/17 09:00 (Tylenol) 650 mg Q4H PRN PO 07/31/17 23:15 07/31/17 23:58 (Lovenox Inj) 40 mg Q24H SQ 08/01/17 00:00 08/01/17 00:54 (Aspirin) 325 mg NOW PO 07/31/17 23:15 08/01/17 23:14 08/01/17 00:56 (Zofran Inj) 4 mg Q6H PRN IVP 07/31/17 23:30 08/01/17 06:50 (Tylenol) 650 mg Q6H PRN PO 07/31/17 23:30 (Toradol Inj) 30 mg Q6H PRN IV PUSH 07/31/17 23:30 08/05/17 23:29 08/01/17 10:00 (Narcan Inj) 0.4 mg UNSCH PRN IV PUSH 07/31/17 23:30 (Nahomy-Colace) 1 tab BID PO 08/01/17 09:00 (Milk Of Magnesia Liq) 30 ml Q12H PRN PO 07/31/17 23:30 (Senokot) 17.2 mg Q12H PRN PO 07/31/17 23:30 (Dulcolax Supp) 10 mg DAILY PRN RECTAL 07/31/17 23:30 (Lactulose Liq) 30 ml DAILY PRN PO 07/31/17 23:30 (Dilaudid Pf Inj) 1 mg Q4H PRN IV PUSH 08/01/17 01:20 08/01/17 03:59 Pharmacy Profile Note 0 ml @ 0 mls/hr UNSCH OTHER 08/01/17 08:30 Piperacillin Sod/ Tazobactam Sod 100 ml @ 200 mls/hr Q8H IV 08/01/17 09:00 08/01/17 10:07 Metronidazole 100 ml @ 100 mls/hr Q8H IV 08/01/17 10:00 08/01/17 11:26 (Morphine Inj) 6 mg Q3H PRN IV PUSH 08/01/17 09:00 08/01/17 13:05 (Morphine Inj) 4 mg Q3H PRN IV PUSH 08/01/17 11:00 Vancomycin HCl 2500 mg/Sodium Chloride 525 ml @ 250 mls/hr Q12H IV 08/01/17 14:00 Miscellaneous Information SPECIFIC LAB TO BE COLE... ONCE ONCE .XX 08/03/17 01:45 08/03/17 01:46 Family History Noncontributory Social History Denies tobacco use Rare ETOH use Denies illicit drug use Student at [employer] Physical Exam Vital Signs Vital Signs Date Time Temp Pulse Resp B/P (MAP) Pulse Ox O2 Delivery O2 Flow Rate FiO2 08/01/17 08:35 102.8 08/01/17 08:30 150 08/01/17 08:11 100 Nasal Cannula 3.00 08/01/17 08:00 102.9 143 26 128/64 (85) 96 08/01/17 07:40 144 08/01/17 03:03 97.2 103 18 106/56 (73) 98 08/01/17 00:40 97.8 120 18 113/56 (75) 98 08/01/17 00:01 99.0 07/31/17 23:39 96 21 07/31/17 21:09 109 18 104/51 (68) 98 Room Air 07/31/17 19:35 98 Room Air 07/31/17 18:57 98.6 106 22 122/68 (86) 97 Room Air 07/31/17 18:47 131 22 111/59 (76) 100 Room Air 07/31/17 18:29 98.6 107 18 112/70 (84) 98 Physical Exam GENERAL: 22 year old male lying flat in bed in no acute distress. SKIN: Warm and dry. HEAD: Atraumatic. Normocephalic. EYES: Pupils equal and round. No scleral icterus. No injection or drainage. ENT: No nasal bleeding or discharge. Mucous membranes pink and moist. NECK: Trachea midline. CARDIOVASCULAR: Regular rate and rhythm. RESPIRATORY: No accessory muscle use. Clear to auscultation. Breath sounds equal bilaterally. GASTROINTESTINAL: Abdomen soft, nondistended. Tenderness with palpation in RUQ. Well healed laparoscopic incisions. MUSCULOSKELETAL: Extremities without clubbing, cyanosis, or edema. No obvious deformities. NEUROLOGICAL: Awake and alert. No obvious cranial nerve deficits. Motor grossly within normal limits. Five out of 5 muscle strength in the arms and legs. Normal speech. PSYCHIATRIC: Appropriate mood and affect; insight and judgment normal. Laboratory Laboratory Tests Test 07/31/17 19:00 07/31/17 19:10 07/31/17 20:20 07/31/17 21:05 Procalcitonin 0.08 Prothrombin Time 11.1 Prothromb Time International Ratio 1.1 Activated Partial Thromboplast Time 25.2 D-Dimer Quantitative (PE/DVT) 0.96 Blood Urea Nitrogen 13 Creatinine 1.23 Random Glucose 98 Total Protein 8.0 Albumin 4.2 Calcium Level 9.3 Alkaline Phosphatase 63 Aspartate Amino Transf (AST/SGOT) 23 Alanine Aminotransferase (ALT/SGPT) 50 Total Bilirubin 0.6 Sodium Level 137 Potassium Level 3.5 Chloride Level 104 Carbon Dioxide Level 21.6 Anion Gap 11 Estimat Glomerular Filtration Rate 74 Total Creatine Kinase 50 Troponin I LESS THAN 0.02 C-Reactive Protein 1.10 B-Type Natriuretic Peptide LESS THAN 2 Lipase 80 Lactic Acid Level 1.8 White Blood Count 12.1 Red Blood Count 3.89 Hemoglobin 12.5 Hematocrit 35.8 Mean Corpuscular Volume 92.1 Mean Corpuscular Hemoglobin 32.1 Mean Corpuscular Hemoglobin Concent 34.8 Red Cell Distribution Width 12.5 Platelet Count 255 Mean Platelet Volume 8.7 Neutrophils (%) (Auto) 87.1 Lymphocytes (%) (Auto) 5.4 Monocytes (%) (Auto) 7.0 Eosinophils (%) (Auto) 0.1 Basophils (%) (Auto) 0.4 Neutrophils # (Auto) 10.5 Lymphocytes # (Auto) 0.7 Monocytes # (Auto) 0.8 Eosinophils # (Auto) 0.0 Basophils # (Auto) 0.1 CBC Comment DIFF FINAL Differential Comment Test 07/31/17 23:20 08/01/17 02:08 08/01/17 07:53 08/01/17 10:10 Urine Color YELLOW Urine Turbidity CLEAR Urine pH 6.0 Urine Specific [place] GREATER THAN 1.050 Urine Protein TRACE Urine Glucose (UA) NEG Urine Ketones NEG Urine Occult Blood NEG Urine Nitrite NEG Urine Bilirubin NEG Urine Urobilinogen LESS THAN 2.0 Urine Leukocyte Esterase NEG Urine WBC 1 Urine Squamous Epithelial Cells <1 Urine Mucus FEW Microscopic Urinalysis Comment CULT NOT INDICATED White Blood Count 11.8 12.2 Red Blood Count 4.05 4.62 Hemoglobin 13.3 14.7 Hematocrit 37.7 43.2 Mean Corpuscular Volume 93.0 93.6 Mean Corpuscular Hemoglobin 32.8 31.9 Mean Corpuscular Hemoglobin Concent 35.3 34.1 Red Cell Distribution Width 12.6 12.9 Platelet Count 251 220 Mean Platelet Volume 8.7 8.3 Neutrophils (%) (Auto) 84.6 82.4 Lymphocytes (%) (Auto) 7.4 11.7 Monocytes (%) (Auto) 7.5 5.5 Eosinophils (%) (Auto) 0.0 0.1 Basophils (%) (Auto) 0.5 0.3 Neutrophils # (Auto) 10.0 10.1 Lymphocytes # (Auto) 0.9 1.4 Monocytes # (Auto) 0.9 0.7 Eosinophils # (Auto) 0.0 0.0 Basophils # (Auto) 0.1 0.0 CBC Comment DIFF FINAL DIFF FINAL Differential Comment Blood Urea Nitrogen 12 12 Creatinine 1.12 1.26 Random Glucose 109 84 Calcium Level 8.1 8.3 Sodium Level 138 140 Potassium Level 3.6 3.8 Chloride Level 106 107 Carbon Dioxide Level 24.7 26.7 Anion Gap 7 6 Estimat Glomerular Filtration Rate 82 72 Troponin I LESS THAN 0.02 LESS THAN 0.02 Total Protein 6.8 Albumin 3.4 Alkaline Phosphatase 68 Aspartate Amino Transf (AST/SGOT) 111 Alanine Aminotransferase (ALT/SGPT) 122 Total Bilirubin 0.9 Lactic Acid Level 2.9 Date/Time Source Procedure Growth Status 08/01/17 10:10 Blood Other Aerobic Blood Culture Pending Received 08/01/17 10:10 Blood Other Anaerobic Blood Culture Pending Received Result Diagram: 08/01/17 1010 08/01/17 0753 Imaging Last [address] Angiography [id number]/31/[id number] Signed Impressions: Service Date/Time: Monday, July 31, 2017 21:11 - CONCLUSION: No pulmonary embolus. There is suspected mild atelectasis or consolidation at the lung bases with minimal bilateral effusions. Jerson Potter MD Chest X-Ray [id number]/31/[id number] Signed Impressions: Service Date/Time: Monday, July 31, 2017 19:35 - CONCLUSION: Normal examination. Jerson Potter MD Abdomen/Pelvis CT [id number]/31/[id number] Signed Impressions: Service Date/Time: Monday, July 31, 2017 20:32 - CONCLUSION: 1. Hepatic steatosis. 2. Minimal suspected atelectasis at the lung bases with accompanying minimal effusions. 3. Nonspecific enlargement of the spleen. Jerson Potter MD Lower Extremity Ultrasound 07/31/17 0000 Signed Impressions: Service Date/Time: Monday, July 31, 2017 23:51 - CONCLUSION: No DVT. Jerson Potter MD Assessment and Plan Assessment and Plan 22 year old male s/p diagnostic laparoscopy, laparoscopic cholecystectomy, laparoscopic liver biopsy and open repair of umbilical hernia on July [address] De Anda; back with abdominal pain; fevers; tachycardia. -Workup for sepsis already in progress -No acute General Surgery issues at this time -Discussed with patient and family at bedside -Also discuss with Dr. Guerrier Discussed Condition With Dr. Adilson Lopez RN Mr. Mehta + family at bedside Attending Statement I saw the patient in 0. He was awake, alert. He had eaten 1/2 a hamburger. He had vague recollections of what happened. His father and his GF were at bedside. His abdomen was soft and his incision sites were all healing well, no erythema. Adhesive, patterson sticky from steri strips still present. Minimal pain with palpation while distracted. No rebound or guarding. HR 115, BP stable. Reviewed CT images, intra abdominal areas, clean, pristine, no fluid collections , no inflammatory changes, super clean post lap hill, lap liver biopsy. Path had demonstrated mild chronic cholecystitis and steatosis of the liver. No steatohepaitis. I agree there is no finding that suggests a post surgical etiology of his fever , tachycardia, or other complaints. I d/w patient, father, GF, and DR Guerrier. ? viral etiology. Will follow peripherally. The exam, history, and the medical decision-making described in the above note were completed with the assistance of the mid-level provider. I reviewed and agree with the findings presented. I attest that I had a [id number] encounter with the patient on the same day, and personally performed and documented my assessment and findings in the medical record. Leigh Byrne Aug 01, 2017 14:20 You De Anda MD Aug 02, 2017 15:54
[2017-08-01] MEDS: VANCOMYCIN INJ 2,500 MG in SODIUM CHLORID 0.9% 500 ML INJ 500 ML IV SCH (14:30)
[2017-08-01 16:09] LABS: GAMMA GT 212 U/L (15-85)
[2017-08-01 16:15] LABS: CREATINE KINASE 34 U/L (39-308)
--- NOTE | 2017-08-01 17:49 | EKG ---
Date Performed: 07/31/2017 Time Performed: 19:09:39 PTAGE: 22 years EKG: SINUS TACHYCARDIA ABNORMAL RHYTHM ECG NO PREVIOUS TRACING DOCTOR: Bobby Russell Interpretating Date/Time 08/01/2017 17:48:28
--- NOTE | 2017-08-01 17:49 | EKG ---
Date Performed: 08/01/2017 Time Performed: 11:22:56 PTAGE: 22 years EKG: SINUS TACHYCARDIA NONSPECIFIC T-WAVE ABNORMALITY Since previous tracing, no significant colt nge noted ABNORMAL RHYTHM ECG PREVIOUS TRACING : 07/31/2017 19.09 DOCTOR: Bobby Russell Interpretating Date/Time 08/01/2017 17:48:47
[2017-08-01 19:48] LABS: MRSA PCR NEGATIVE (NEGATIVE); STAPH AUREUS PCR NEGATIVE (NEGATIVE)
[2017-08-02] VITALS (13 sets, daily range): BP systolic 102–121; BP diastolic 55–66; PULSE 89–123; RESP 10–24; TEMP 97.9–99.5; O2SAT 94–98
[2017-08-02] MEDS: PIPERACIL-TAZO 4.5 GM PREMIX 100 ML IV SCH ×3 (01:16→17:49)
[2017-08-02] MEDS: ONDANSETRON HCL 4 MG/2 ML VIAL IVP PRN ×2 (01:18→07:25)
[2017-08-02] MEDS: metroNIDAZOLE 500 MG INJ 100 ML IV SCH ×3 (02:15→18:50)
[2017-08-02] MEDS: VANCOMYCIN INJ 2,500 MG in SODIUM CHLORID 0.9% 500 ML INJ 500 ML IV SCH ×2 (02:43→14:52)
[2017-08-02] MEDS: MORPHINE SULFATE 2 MG/ML INJ IV PUSH PRN ×3 (03:56→18:31)
[2017-08-02 04:35] LABS: BICARBONATE 24.6 MEQ/L (21.0-32.0); INDIRECT BILIRUBIN 0.9 MG/DL (0.0-0.8); POTASSIUM 3.3 MEQ/L (3.5-5.1); TOTAL BILIRUBIN ADULT 1.1 MG/DL (0.2-1.0)
[2017-08-02 06:58] LABS: CALCIUM-PROTEIN CORRECTED 7.9 MG/DL (8.5-10.1)
[2017-08-02] MEDS ORDERED: POTASSIUM CHLORIDE 10 MEQ CONTROLLED RELEASE TAB PO ONE (07:00)
[2017-08-02] MEDS: NS + KCL 20 MEQ INJ 1,000 ML IV SCH ×3 (08:34→22:14)
[2017-08-02] MEDS: DOCUSATE SODIUM 50 MG/SENNA 8.6 MG TAB PO SCH ×2 (08:35→20:55)
[2017-08-02] MEDS: SODIUM CHLORIDE 0.9% FLUSH 10 ML FLUSH IV FLUSH SCH ×2 (08:35→20:56)
--- NOTE | 2017-08-02 09:27 | HHI.FPPN ---
Subjective Remarks Patient is sitting up in bed, appears much better than yesterday. Pulse has normalized. No fevers overnight. He feels a lot better. He continues to have some sharp epigastric and right upper quadrant pain. The pain migrates to other areas of his abdomen as well. He has very intermittent sharp left sided chest pains. He has a very intermittent dry cough and is complaining of a sore throat today. He has no runny nose or sputum production. He has no difficulty breathing. He has a good appetite this morning. He ate a small amount last night but had nausea. No calf tenderness or swelling today. Discussed with nurse and mom, he did well overnight. Discussed transferring back to med-surg floor. (Flavio Osei MD R3) Objective Vitals Vital Signs Date Time Temp Pulse Resp B/P (MAP) Pulse Ox O2 Delivery O2 Flow Rate FiO2 08/02/17 07:50 97 21 08/02/17 07:00 96 Room Air 08/02/17 06:00 94 08/02/17 04:01 13 08/02/17 04:00 92 08/02/17 04:00 98.3 92 16 118/66 (83) 96 08/02/17 02:00 92 08/02/17 00:00 106 08/02/17 00:00 99.3 106 10 112/59 (76) 98 08/02/17 00:00 12 08/01/17 22:00 114 08/01/17 20:48 18 08/01/17 20:00 98.5 114 11 101/62 (75) 95 08/01/17 20:00 114 08/01/17 19:00 95 Room Air 08/01/17 18:00 112 08/01/17 16:00 98.2 112 15 108/59 (75) 100 08/01/17 16:00 112 08/01/17 14:00 106 08/01/17 12:00 98.2 117 19 99/55 (70) 96 08/01/17 12:00 117 08/01/17 10:00 128 I/O 08/01/17 08/01/17 08/01/17 08/02/17 08/02/17 08/02/17 07:00 15:00 23:00 07:00 15:00 23:00 Intake Total 1280 ml 1100 ml 2205 ml 240 ml Output Total 1525 ml 1700 ml Balance 1280 ml 1100 ml 680 ml -1460 ml Intake Oral 360 ml 480 ml 240 ml IV Total 920 ml 1100 ml 1725 ml Output Urine Total 1525 ml 1700 ml # Voids 2 # Bowel Movements 0 0 0 (Flavio Osei MD R3) Result Diagram: 08/01/17 1010 08/02/17 0347 Objective Remarks General: Obese male, sitting up in bed, getting ready to eat, no distress, appears well Skin: Appears normal, surgical sites appear normal HEENT: Normocephalic, no scleral icterus, no nasal discharge CV: RRR, no murmurs, rubs, or gallops Lungs: CTAB, no respiratory distress Abdomen: Tender to palpation in epigastric and RUQ regions without guarding or rebound tenderness Neuro: Awake, alert, oriented X3 (Flavio Osei MD R3) A/P Assessment and Plan 22-year-old male with a recent laparoscopic cholecystectomy who presented with left chest pain, right upper quadrant pain, syncope, bilateral leg pain. Developed sepsis on day 2 of hospitalization and was transferred to ICU. On day 3 he was transferred back to the floor after his clinical status stabilized. Discharge Planning Pending clinical stability (Flavio Osei MD R3) Attending Attestation THIS CASE WAS DISCUSSED WITH THE RESIDENT PHYSICIANS. I HAVE REVIEWED THE RECORD , PATIENT SEEN AND EXAMINED< AND AGREE WITH THE ABOVE NOTE AND PLAN OF CARE WAS DISCUSSED. I HAVE AUTHORIZED THE ORDERS (Wil Pisano MD) Problem List: (1) Severe sepsis ICD Codes: A41.9 - Sepsis, unspecified organism; R65.20 - Severe sepsis without septic shock Status: Resolved Plan: Tachycardia, fever, elevated lactic acid (2.9). Source of infection possibly abdominal in nature given epigastric pain and RUQ pain. No guarding or rebound tenderness on exam. Chest x-ray is negative for acute process while CT chest shows some bibasilar atelectasis. UA not suggesting infection. Liver enzymes normal on admission, then elevated to AST/ALT of 111/122. LFT's trending down on day 2. Lipase normal at admission. Influenza A and B negative. Day 3 vital signs are stabilized and he is appearing much better. Now complaining of sore throat and dry cough. Possibly viral in nature. - Follow blood cultures. - Treat broadly with vancomycin, Zosyn, Flagyl. Narrow as appropriate. - Continue IV fluids at 150 mls/hr - General surgery on board. - Rapid strep for complaint of sore throat. (2) Abdominal pain ICD Codes: R10.9 - Unspecified abdominal pain Status: Acute Plan: Recent laparoscopic cholecystectomy. Liver enzymes mildly elevated today , normal at admission. CT abdomen is normal. Post-cholecystectomy syndrome in differential. - Consulted Dr. De Anda, general surgeon. No rigidity, rebound tenderness, or guarding. - Pain management: morphine, Toradol, Dilaudid PRN (3) Nutrition, metabolism, and development symptoms ICD Codes: R63.8 - Other symptoms and signs concerning food and fluid intake Plan: Fluids: Maintenance fluids with NS plus 20 KCl at 150 mls/hr Electrolytes: Monitor and replace as necessary Nutrition: Regular basic diet DVT prophylaxis: Lovenox 40 mg subcutaneous daily Protonix 40 mg daily (Flavio Osei MD R3) Problem Qualifiers (1) Abdominal pain: Qualified Codes: R10.11 - Right upper quadrant pain Flavio Osei MD R3 Aug 02, 2017 09:27 Wil Pisano MD Aug 03, 2017 10:22
--- NOTE | 2017-08-02 10:30 | HHI.CCPN ---
Subjective Remarks/Hospital Course 22 y/o male presents with 3 day history of worsening abdominal pain. S/P lap cholecystectomy about 2 and half weeks ago with uneventful postop course. CTA chest benign, no PE. CT abdomen benign. US lower extremities no DVT. Afebrile and no leukocytosis until today. Temp 102 on floor associated with shaking chill , P 140s, SBP 106. Latest LFTs with elevated transaminases. 08/02: Afebrile. Feels better. Labs benign. Cultures pending. Objective Vital Signs Date Time Temp Pulse Resp B/P (MAP) Pulse Ox O2 Delivery O2 Flow Rate FiO2 08/02/17 07:50 97 21 08/02/17 07:00 Room Air 08/02/17 06:00 94 08/02/17 04:01 13 08/02/17 04:00 98.3 118/66 (83) 08/01/17 08:11 3.00 Intake and Output 08/02/17 08/02/17 08/03/17 08:00 16:00 00:00 Intake Total 240 ml Output Total 1700 ml Balance -1460 ml Result Diagram: 08/01/17 1010 08/02/17 0347 Other Results Microbiology Date/Time Source Procedure Growth Status 08/01/17 14:57 Nasal Aspirate Influenza Types A,B Antigen (KIMBERLEE) - Final NEGATIVE FOR FLU A AND B ANTIGEN.... Complete Objective Remarks P 107, SBP 112, R 12, Sats 97% Head: Normal. Skin: Dry Neck: Supple, airway widely patent. Lungs: Clear, no adventitious sounds. Comfortable pattern. Heart: Tachycardia, NL S1S2, no m,r. No JVD. Abdomen: Voluntary guarding, BA active, no peritoneal irritation. Extremities: Warm, flushed, well perfused. Neuro: Calm. Moves 4 limbs with 5/5 strength. Sensory intact. TODD. EOMI. Speech clear. A/P Assessment and Plan Assessment: 1. Fever. 2. Hypotension. 3. Transaminitis. 4. S/P cholecystectomy. 5. Severe anxiety. Plan: 1. IV hydration. 2. Broad antibiotic coverage until cultures resulted. 3. Serial abdominal exams. Overall impression: Patient is much improved. Abdominal exam is benign. Transfer. Harjeet Guerrier MD Aug 02, 2017 10:30
[2017-08-02] MEDS ORDERED: diphenhydrAMINE HCL 50 MG CAP PO ONE (12:00)
--- NOTE | 2017-08-02 14:58 | HHI.PR ---
cc: You De Anda MD Subjective Subjective Notes Resting in bed ---feels itchy Mother at bedside Objective Vitals/I&O Vital Signs Date Time Temp Pulse Resp B/P (MAP) Pulse Ox O2 Delivery O2 Flow Rate FiO2 08/02/17 12:00 99.5 98 24 111/64 (80) 97 08/02/17 07:50 21 08/02/17 07:00 Room Air 08/01/17 08:11 3.00 Labs Laboratory Tests Test 08/01/17 15:37 08/02/17 03:30 08/02/17 03:47 Troponin I LESS THAN 0.02 Hepatitis A IgM Antibody NEGATIVE Hepatitis B Surface Antigen NEGATIVE Hepatitis B Core IgM Antibody NEGATIVE Hepatitis C Antibody NEGATIVE Lactic Acid Level 1.1 Blood Urea Nitrogen 7 Creatinine 1.14 Random Glucose 79 Total Protein 5.0 Albumin 2.4 Calcium Level 6.8 Alkaline Phosphatase 58 Aspartate Amino Transf (AST/SGOT) 65 Alanine Aminotransferase (ALT/SGPT) 141 Total Bilirubin 1.1 Direct Bilirubin 0.2 Sodium Level 143 Potassium Level 3.3 Chloride Level 113 Carbon Dioxide Level 24.6 Anion Gap 5 Estimat Glomerular Filtration Rate 80 Protein Corrected Calcium 7.9 Indirect Bilirubin 0.9 Total Creatine Kinase 44 Date/Time Source Procedure Growth Status 08/01/17 10:10 Blood Other Aerobic Blood Culture - Preliminary NO GROWTH IN 1 DAY Resulted 08/01/17 10:10 Blood Other Anaerobic Blood Culture - Final QNS - SEE AEROBE REPORT Resulted 08/02/17 09:50 Throat Group A Streptococcus Screen Pending Received Radiology Last [address] Angiography 07/31/172055 Signed Impressions: Service Date/Time: Monday, July 31, 2017 21:11 - CONCLUSION: No pulmonary embolus. There is suspected mild atelectasis or consolidation at the lung bases with minimal bilateral effusions. Jerson Potter MD Chest X-Ray 07/31/171902 Signed Impressions: Service Date/Time: Monday, July 31, 2017 19:35 - CONCLUSION: Normal examination. Jerson Potter MD Abdomen/Pelvis CT 07/31/171902 Signed Impressions: Service Date/Time: Monday, July 31, 2017 20:32 - CONCLUSION: 1. Hepatic steatosis. 2. Minimal suspected atelectasis at the lung bases with accompanying minimal effusions. 3. Nonspecific enlargement of the spleen. Jerson Potter MD Lower Extremity Ultrasound 07/31/17 0000 Signed Impressions: Service Date/Time: Monday, July 31, 2017 23:51 - CONCLUSION: No DVT. Jerson Potter MD Cardiovascular: Regular Lungs: Clear Abdomen: Other (well healed lap sites; minimal tenderness with palpation ) Extremities: No edema A/P Assessment and Plan 22 year old male s/p diagnostic laparoscopy, laparoscopic cholecystectomy, laparoscopic liver biopsy and open repair of umbilical hernia on July [address] De Anda; back with abdominal pain; fevers; tachycardia. -Continue antibiotics -Await blood cultures -Diet as tolerated Attending Statement Just moved to 1502. Has been eating. tolerating it well. Feels much better. Abdomen soft and non tender. ? viral etiology. All cultures negative thus far. No surgery indicated, stable postop lap hill, lap liver biopsy. D/W pt and father and GF at bedside. The exam, history, and the medical decision-making described in the above note were completed with the assistance of the mid-level provider. I reviewed and agree with the findings presented. I attest that I had a [id number] encounter with the patient on the same day, and personally performed and documented my assessment and findings in the medical record. Leigh Byrne Aug 02, 2017 14:58 You De Anda MD Aug 02, 2017 16:21
[2017-08-02] MEDS ORDERED: diphenhydrAMINE HCL 25 MG CAP PO PRN (18:00)
[2017-08-02] MEDS ORDERED: GABAPENTIN 300 MG CAP PO ONE (21:30)
[2017-08-02] MEDS ORDERED: methylPREDNISolone SOD SUCC 40 MG/1 ML VIAL IV PUSH ONE (21:30)
[2017-08-02] MEDS ORDERED: diphenhydrAMINE HCL 50 MG/ML VIAL IV ONE (21:30)
[2017-08-02] MEDS ORDERED: diphenhydrAMINE HCL 2%/ZINC ACETATE 0.1% CREAM 30 APPLIC/30 GM TUBE TOPICAL PRN (21:30)
[2017-08-02] MEDS: HYDROmorphone HCL PF 2 MG/ML VIAL IV PUSH PRN (21:31)
--- NOTE | 2017-08-02 21:36 | HHI.FPPN ---
Addendum to progress note ADDENDUM Reason for addendum: Additonal documentation Additional information Resident night team called about worsening redness in his arms. The patient has noticed a red rash that started on his chest, and moved to his extremities and buttocks, over the past 24 hours. He said that he first noticed the rash yesterday around 11 AM. This is about the same time that he was started on antibiotics. He also noticed more recently, approximately 10 minutes ago, that he had swelling in both of his hands, and extreme pain that is described as a burning sensation. The pain was a 10 out of 10. He denies any difficulty with breathing, shortness of breath, chest pains, palpitations, headaches, visual changes. He does report that he can't move his hands because of the pain. Vital signs: Temperature 97.9, pulse 98, respiration rate 20, 119/65, pulse oximetry 94% on room air. General: Standing on exam, appears like he is in pain, nontoxic. HEENT: Throat/upper airway without edema, uvula midline, no ulcers in the pharynx, green mucus discharge from both nares, pupils equal round and reactive to light, extraocular eye movements intact. Cardiovascular: Regular rate and rhythm, no murmurs heard. Respiratory: clear to auscultation bilaterally, no accessory muscle use. GI: Soft, nontender, bowel sounds present. Small port sites well-healing. Integumentary: Faint erythematous rash on his chest arms and lower extremities. Pustular rash along the anterior neck, upper back, and on his buttocks. Faint erythematous macular lesions approximately 3 mm on his hands more so on the left hand. 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 Also cannot rule out a new penicillin allergy secondary to Zosyn. Also on the differential is [id number]-hro-mouth disease, given his recent sore throats and neuropathic pain and lesions consistent with this viral illness. We will stop all of his antibiotics. His blood cultures have been negative over the past 2 days. Plan: Stop all antibiotics and monitor for signs of worsening infection, i.e. fevers, tachycardia, other. Continue with Benadryl 50 mg by mouth every 6 hours as needed for itching. IV Benadryl 25 mg 1 now. Solu-Medrol 40 mg IV 1 now. Gabapentin 300 mg by mouth 1 now. Dilaudid 1 mg IV 1 now. We'll gets bacterial cultures/Gram stain, as well as a viral culture of the pustules. 2) Hand swelling: Left > right. Also on differential however lower is a DVT of right upper extremity. Will get US of this extremity to rule this out. Called and spoke to day team, Dr. Flavio Osei who verifies that this is a new finding. Ethan Moss MD, R3 Aug 02, 2017 21:36
[2017-08-03] VITALS (13 sets, daily range): BP systolic 94–103; BP diastolic 53–60; PULSE 57–114; RESP 16–20; TEMP 97.2–98.6; O2SAT 95–97
--- NOTE | 2017-08-03 00:11 | RADRPT ---
EXAM DATE/TIME: 08/02/2017 23:26 [facility] COMPARISON: No previous studies available for comparison. INDICATIONS : Right arm pain. MEDICAL HISTORY : Hernia, inguinal. Syncope. Hiatal hernia. Peptic ulcer. Depression. Anxiety. SURGICAL HISTORY : Cholecystectomy. Hernia repair. ENCOUNTER: Initial ACUITY: 1 day PAIN SCORE: 0/10 LOCATION: Right arm. FINDINGS: There is occlusive thrombus in the cephalic vein and in the basilic vein. The brachial, axillary, sub clavian and right internal jugular central veins are all patent. CONCLUSION: Occlusive thrombus in the cephalic and basilic veins. Jerson Potter MD on August 03, 2017 at 0:07 Board Certified Radiologist. This report was verified electronically.
[2017-08-03] MEDS: MORPHINE SULFATE 8 MG/ML INJ IV PUSH PRN (00:40)
[2017-08-03] MEDS: ENOXAPARIN SODIUM 40 MG/0.4 ML SYRINGE SQ SCH ×2 (00:40→23:18)
[2017-08-03] MEDS ORDERED: PHARMACY ORDERED LAB ONE (01:45)
[2017-08-03] MEDS: NS + KCL 20 MEQ INJ 1,000 ML IV SCH (04:54)
[2017-08-03] MEDS: diphenhydrAMINE HCL 50 MG CAP PO PRN ×3 (09:15→23:18)
[2017-08-03] MEDS: DOCUSATE SODIUM 50 MG/SENNA 8.6 MG TAB PO SCH ×2 (09:15→20:53)
[2017-08-03] MEDS: SODIUM CHLORIDE 0.9% FLUSH 10 ML FLUSH IV FLUSH SCH ×2 (09:16→20:53)
[2017-08-03] MEDS ORDERED: predniSONE 50 MG TAB PO ONE (09:30)
[2017-08-03 09:40] LABS: HEMATOCRIT 40.3 % (39.0-51.0); MEAN CELL VOLUME 94.2 FL (80.0-100.0); MEAN CORPUSCULAR HEMOGLOBIN 32.8 PG (27.0-34.0); MEAN CORPUSCULAR HGB CONC 34.8 % (32.0-36.0); PLATELET COUNT 240 TH/MM3 (150-450); RED BLOOD COUNT 4.28 MIL/MM3 (4.50-5.90); RED CELL DISTRIBUTION WIDTH 12.7 % (11.6-17.2); REVIEW FLAG FINAL; WHITE BLOOD COUNT 6.7 TH/MM3 (4.0-11.0)
[2017-08-03 09:58] LABS: BICARBONATE 23.7 MEQ/L (21.0-32.0); POTASSIUM 4.2 MEQ/L (3.5-5.1)
[2017-08-03] MEDS: IBUPROFEN 600 MG TAB PO SCH ×3 (10:18→20:53)
--- NOTE | 2017-08-03 11:03 | HHI.FPPN ---
Subjective Remarks Overnight patient developed a papular rash on his face, upper back and neck, and buttocks, as well as a macular rash on his palms and soles. He has itching and pain associated with the rash. His vancomycin and Zosyn were stopped overnight in case he was having a reaction to the medications. He was given Benadryl and IV steroids, as well as pain medication. This morning he is doing better. Rash is still present but somewhat improved. The pain is much better. He has minimal itching this morning. He has no respiratory distress. He has no fevers overnight. Sore throat has resolved. He has a dry intermittent cough. He has bilateral arm swelling. Ultrasound of right upper extremity showed thrombus in the basilic and cephalic veins but not in the deeper veins. Peripheral IV catheters will be hep-locked. I do not want to pull the catheters at this time as he may continue to need IV access. His memory and orientation are much improved and are back to normal. White count back to normal. (Flavio Osei MD R3) Objective Vitals Vital Signs Date Time Temp Pulse Resp B/P (MAP) Pulse Ox O2 Delivery O2 Flow Rate FiO2 08/03/17 08:58 60 08/03/17 08:10 97.3 57 16 103/58 (73) 97 08/03/17 04:00 97.6 74 20 98/58 (71) 96 08/03/17 02:05 98.6 71 18 94/55 (68) 97 08/03/17 00:30 80 08/03/17 00:00 97.5 74 20 101/57 (72) 95 08/02/17 22:15 98.5 89 18 102/55 (71) 96 08/02/17 21:30 Room Air 08/02/17 20:30 92 08/02/17 20:00 97.9 98 20 119/65 (83) 94 08/02/17 17:30 101 08/02/17 17:12 98.1 98 18 121/63 (82) 95 08/02/17 16:00 98.7 107 20 119/63 (81) 97 08/02/17 12:00 99.5 98 24 111/64 (80) 97 I/O 08/02/17 08/02/17 08/02/17 08/03/17 08/03/17 08/03/17 07:00 15:00 23:00 07:00 15:00 23:00 Intake Total 240 ml 360 ml 240 ml 300 ml Output Total 1700 ml 1000 ml 500 ml Balance -1460 ml -640 ml 240 ml -200 ml Intake Oral 240 ml 360 ml 240 ml 300 ml Output Urine Total 1700 ml 1000 ml 500 ml # Bowel Movements 0 0 (Flavio Osei MD R3) Result Diagram: 08/03/1781408/03/17814 Objective Remarks General: Obese male, lying in bed, no distress Skin: Papular rash, almost a folliculitis, on his face, upper back, neck, lower back, and buttocks. Has macular rash on palms and soles. HEENT: Normocephalic, no scleral icterus, no nasal discharge. No oral ulcers or lesions. Does have a few tonsillar exudates and mild erythema of pharynx. CV: RRR, no murmurs, rubs, or gallops Lungs: CTAB, no respiratory distress Abdomen: Tender to palpation in epigastric and RUQ regions without guarding or rebound tenderness Ext: Bilateral distal arms with mild swelling, no erythema or pain with palpation Neuro: Awake, alert, oriented X3 (Flavio Osei MD R3) A/P Assessment and Plan 22-year-old male with a recent laparoscopic cholecystectomy who presented with left chest pain, right upper quadrant pain, syncope, bilateral leg pain. Developed sepsis on day 2 of hospitalization and was transferred to ICU. On day 3 he was transferred back to the floor after his clinical status stabilized. On night of day 3 developed macular papular rash, possibly as reaction to antibiotics or as a viral exanthem. Day 4 he is improving clinically. Discharge Planning Pending clinical stability (Flavio Osei MD R3) Attending Attestation ... Medical rounds were performed this morning with Dr Mateo Osei, case discussed in detail, patient seen and examined,agree with above documentation and assessment, see Orders (Wil Pisano MD) Problem List: (1) Severe sepsis ICD Codes: A41.9 - Sepsis, unspecified organism; R65.20 - Severe sepsis without septic shock Status: Resolved Plan: Tachycardia, fever, elevated lactic acid (2.9). He recent cholecystectomy but has no guarding or rebound tenderness on exam. Chest x-ray is negative for acute process while CT chest shows some bibasilar atelectasis. UA not suggesting infection. Liver enzymes normal on admission, then elevated to AST/ALT of 111/122. LFT's trending down on day 2. Lipase normal at admission. Influenza A and B negative. Day 3 vital signs are stabilized and he is appearing much better. Now complaining of sore throat and dry cough. Had maculopapular rash on night of day 3, possible reaction to antibiotics which are now discontinued, or a viral exanthem. Hand foot and mouth infection is in the differential. Per father, he had all vaccines growing up. Strep A is negative, influenza negative, blood cultures negativeto date - Follow blood cultures. - Follow group A strep cultures. - Follow respiratory viral cultures - Received vancomycin, Zosyn, Flagyl, discontinues after rash and itching developed. - Received IV fluids, appears well hydrated, now PO fluids - General surgery on board, no surgical abdomen at this point. (2) Abdominal pain ICD Codes: R10.9 - Unspecified abdominal pain Status: Acute Plan: Recent laparoscopic cholecystectomy. Liver enzymes mildly elevated today , normal at admission. CT abdomen is normal. Post-cholecystectomy syndrome in differential. - Consulted Dr. De Anda, general surgeon. No rigidity, rebound tenderness, or guarding. - Pain management: Ibuprofen 600 mg q6hrs scheduled. (3) Transaminitis ICD Codes: R74.0 - Nonspecific elevation of levels of transaminase and lactic acid dehydrogenase [LDH] Status: Acute Plan: Elevated ALT, AST. Unknown etiology. Had this at prior admission as well and had cholecystectomy performed. Possibly related to sepsis with end organ damage, also has hepatic steatosis proven by liver biopsy at last hospital visit. Hepatitis profile negative. Bishnu's disease and hemochromatosis ruled out. Could be the result of a viral infection. - Trend levels - Avoid hepatotoxic agents - Recommend no alcohol use - Recommend weight loss, healthy diet for steatosis (4) Superficial thrombophlebitis of upper extremity ICD Codes: I80.8 - Phlebitis and thrombophlebitis of other sites Status: Acute Plan: Thrombus formation in right upper extremity basilic and cephalic veins, likely due to intravenous peripheral catheter. - Would like to keep catheter in place one more night due to recent sepsis. Remove as soon as possible, and hep-lock for now. - Ibuprofen 600 mg q6hrs scheduled for pain - Warm compresses for swelling and pain - Elevate extremity periodically. (5) Nutrition, metabolism, and development symptoms ICD Codes: R63.8 - Other symptoms and signs concerning food and fluid intake Status: Acute Plan: Fluids: Oral fluids, monitor hydration status Electrolytes: Monitor and replace as necessary Nutrition: Regular basic diet DVT prophylaxis: Lovenox 40 mg subcutaneous daily Protonix 40 mg daily (Flavio Osei MD R3) Problem Qualifiers (1) Abdominal pain: Qualified Codes: R10.11 - Right upper quadrant pain (2) Superficial thrombophlebitis of upper extremity: Qualified Codes: I80.8 - Phlebitis and thrombophlebitis of other sites Flavio Osei MD R3 Aug 03, 2017 11:03 Wil Pisano MD Aug 04, 2017 09:19
[2017-08-04] VITALS (12 sets, daily range): BP systolic 100–128; BP diastolic 54–75; PULSE 63–97; RESP 18–20; TEMP 97.1–98.2; O2SAT 95–100
[2017-08-04] MEDS: IBUPROFEN 600 MG TAB PO SCH ×4 (05:04→21:54)
[2017-08-04] MEDS: diphenhydrAMINE HCL 50 MG CAP PO PRN ×2 (05:06→16:40)
[2017-08-04] MEDS: SODIUM CHLORIDE 0.9% FLUSH 10 ML FLUSH IV FLUSH SCH ×2 (08:08→21:54)
[2017-08-04 08:09] LABS: HEMATOCRIT 40.3 % (39.0-51.0); MEAN CORPUSCULAR HEMOGLOBIN 32.9 PG (27.0-34.0); PLATELET COUNT 277 TH/MM3 (150-450); RED BLOOD COUNT 4.29 MIL/MM3 (4.50-5.90); RED CELL DISTRIBUTION WIDTH 12.7 % (11.6-17.2); REVIEW FLAG FINAL; WHITE BLOOD COUNT 10.9 TH/MM3 (4.0-11.0)
[2017-08-04] MEDS: DOCUSATE SODIUM 50 MG/SENNA 8.6 MG TAB PO SCH ×2 (08:09→21:53)
[2017-08-04 08:41] LABS: ALKALINE PHOSPHATASE 68 U/L (45-117); ALT (GPT) 93 U/L (12-78); ANION GAP 9 MEQ/L (5-15); AST (GOT) 21 U/L (15-37); BICARBONATE 26.4 MEQ/L (21.0-32.0); BLOOD UREA NITROGEN 14 MG/DL (7-18); CHLORIDE 107 MEQ/L (98-107); GLOMERULAR FILTRATION RATE 83 ML/MIN (>89); POTASSIUM 3.5 MEQ/L (3.5-5.1); SODIUM (NA) 142 MEQ/L (136-145); TOTAL BILIRUBIN ADULT 0.2 MG/DL (0.2-1.0)
[2017-08-04 10:52] LABS: VZV RESULT Negative (Negative); VZV SPECIMEN SOURCE PUSTULE ON BACK
[2017-08-04] MEDS: SUCRALFATE 1 GM TAB PO SCH ×2 (11:47→16:42)
[2017-08-04] MEDS: PANTOPRAZOLE SOD 40 MG DELAYED RELEASE TAB PO SCH (11:47)
[2017-08-04] MEDS: FLUoxetine HCL 20 MG CAP PO SCH (11:47)
--- NOTE | 2017-08-04 14:18 | HHI.FPPN ---
Subjective Remarks Patient with continuing maculopapular and follicular rash located on posterior neck, back, buttocks, and extending down his arms, also with erythematous macules on palms and soles that shaniqua. This morning has new complaint of paresthesias and pain in his finger tips and toes. Also complaining of difficulty opening his left hand. Discussed consulting occupational therapy and neurology for further assessment and management of these new symptoms. No fevers overnight and white count is normal. So far all cultures have been negative. Continues to have mild sore throat, dry cough. No runny nose. Intermittent epigastric pain and left chest pain as at admission but improved. No other complaints this morning. (Flavio Osei MD R3) Objective Vitals Vital Signs Date Time Temp Pulse Resp B/P (MAP) Pulse Ox O2 Delivery O2 Flow Rate FiO2 08/04/17 12:39 97.5 97 20 100/54 (69) 97 08/04/17 12:00 92 08/04/17 10:22 16 08/04/17 09:16 Nasal Cannula 08/04/17 08:13 72 08/04/17 08:02 97.6 69 20 116/75 (89) 100 08/04/17 05:24 97.5 81 18 112/58 (76) 96 08/04/17 04:30 63 08/04/17 00:32 97.1 90 18 108/58 (75) 96 08/04/17 00:30 74 08/03/17 21:16 97.2 77 16 95/53 (67) 96 08/03/17 20:30 85 08/03/17 19:07 77 08/03/17 17:15 97 21 08/03/17 16:58 97.5 81 16 102/60 (74) 97 08/03/17 15:45 64 I/O 08/03/17 08/03/17 08/03/17 08/04/17 08/04/17 08/04/17 07:00 15:00 23:00 07:00 15:00 23:00 Intake Total 300 ml Output Total 500 ml Balance -200 ml Intake Oral 300 ml Output Urine Total 500 ml # Voids 1 # Bowel Movements 0 (Flavio Osei MD R3) Result Diagram: 08/04/17 0635 08/04/17 0655 Objective Remarks General: Obese male, lying in bed, no distress Skin: Papular and follicular rash on his face, upper back, neck, lower back, and buttocks. Has macular rash on palms and soles. Macules on palms and soles are blanching. Rash is itchy to the patient. HEENT: Normocephalic, no scleral icterus, no nasal discharge. No oral ulcers or lesions. Does have a few tonsillar exudates and mild erythema of pharynx noted yesterday. CV: RRR, no murmurs, rubs, or gallops Lungs: CTAB, no respiratory distress Abdomen: Mildly tender to palpation in epigastric and RUQ regions without guarding or rebound tenderness Ext: Bilateral distal arms with mild swelling, no erythema or pain with palpation, peripheral catheters removed Neuro: Awake, alert, oriented X3. Distal reflexes intact. EOMI, CN intact. Upper extremity and lower extremity strength 4/5, but apparent poor effort. (Flavio Osei MD R3) A/P Assessment and Plan 22-year-old male with a recent laparoscopic cholecystectomy who presented with left chest pain, right upper quadrant pain, syncope, bilateral leg pain. Developed sepsis on day 2 of hospitalization and was transferred to ICU. On day 3 he was transferred back to the floor after his clinical status stabilized. On night of day 3 developed macular papular rash, possibly as reaction to antibiotics or as a viral exanthem. Day 4 he is improving clinically. Continuing with maculopapular rash, and now with paresthesias distally and left hand weakness, neurology and occupational therapy now on board. Discharge Planning Pending improvement in new symptoms. (Flavio Osei MD R3) Attending Attestation Patient seen and examined. Case reviewed and discussed with the resident DR Mateo Osei. Agree with plan of care as discussed with me and documented in the resident note. (Wil Pisano MD) Problem List: (1) Diffuse papular rash ICD Codes: R21 - Rash and other nonspecific skin eruption Status: Acute Plan: Diffuse maculopapular rash, with macules on palms and soles, after receiving vancomycin and Zosyn. Possibly reaction to vancomycin, or could be result of a viral illness. Hand foot and mouth is in differential. Reports no new sex partners. Reactive arthritis and syphilis, jg mountain spotted fever seem less likely. Also with mild sore throat and dry cough. Pharynx with a few exudates. Strep and flu test negative. - Continue supportive management - Benadryl for itching - Ibuprofen for pain - Follow viral cultures. (2) Paresthesias ICD Codes: R20.2 - Paresthesia of skin Status: Acute Plan: New onset paresthesias, possibly effect of medication versus Guillain Faulkner versus syphilis versus central nervous system disorder. Distal reflexes intact. Weak crop consultant on left side this morning. - Consulting neurology - Getting MRI brain and spine to evaluate further - RPR - B1, B6, B12 - Rheumatoid factor - Creatinine kinase - CRP - ECHO and carotid doppler - Protein electrophoresis (3) Severe sepsis ICD Codes: A41.9 - Sepsis, unspecified organism; R65.20 - Severe sepsis without septic shock Status: Resolved Plan: Tachycardia, fever, elevated lactic acid (2.9). He recent cholecystectomy but has no guarding or rebound tenderness on exam. Chest x-ray is negative for acute process while CT chest shows some bibasilar atelectasis. UA not suggesting infection. Liver enzymes normal on admission, then elevated to AST/ALT of 111/122. LFT's trending down on day 2. Lipase normal at admission. Influenza A and B negative. Day 3 vital signs are stabilized and he is appearing much better. Now complaining of sore throat and dry cough. Had maculopapular rash on night of day 3, possible reaction to antibiotics which are now discontinued, or a viral exanthem. Hand foot and mouth infection is in the differential. Per father, he had all vaccines growing up. Strep A is negative, influenza negative, blood cultures negative to date. Viral cultures negative to date. - Follow blood cultures. - Follow group A strep cultures. - Follow viral cultures - Received vancomycin, Zosyn, Flagyl, discontinued after rash and itching developed. Vancomycin added to allergy list. - Received IV fluids, appears well hydrated, now PO fluids. Peripheral catheters removed, will have to replace for contrast for MRI. - General surgery on board, no surgical abdomen at this point. (4) Abdominal pain ICD Codes: R10.9 - Unspecified abdominal pain Status: Resolved Plan: Recent laparoscopic cholecystectomy. Liver enzymes mildly elevated, normal at admission. CT abdomen is normal. - Consulted Dr. De Anda, general surgeon. No rigidity, rebound tenderness, or guarding. - Pain management: Ibuprofen 600 mg q6hrs scheduled. (5) Transaminitis ICD Codes: R74.0 - Nonspecific elevation of levels of transaminase and lactic acid dehydrogenase [LDH] Status: Acute Plan: Elevated ALT, AST. Unknown etiology. Had this at prior admission as well and had cholecystectomy performed. Possibly related to sepsis with end organ damage, also has hepatic steatosis proven by liver biopsy at last hospital visit. Hepatitis profile negative. Bishnu's disease and hemochromatosis ruled out. Could be the result of a viral infection. - Trend levels - Avoid hepatotoxic agents - Recommend no alcohol use - Recommend weight loss, healthy diet for steatosis (6) Superficial thrombophlebitis of upper extremity ICD Codes: I80.8 - Phlebitis and thrombophlebitis of other sites Status: Acute Plan: Thrombus formation in right upper extremity basilic and cephalic veins, likely due to intravenous peripheral catheter. - IV removed, but will need to replace for contrast for MRI - Ibuprofen 600 mg q6hrs scheduled for pain - Warm compresses for swelling and pain - Elevate extremity periodically. (7) Nutrition, metabolism, and development symptoms ICD Codes: R63.8 - Other symptoms and signs concerning food and fluid intake Status: Acute Plan: Fluids: Oral fluids, monitor hydration status Electrolytes: Monitor and replace as necessary Nutrition: Regular basic diet DVT prophylaxis: Lovenox 40 mg subcutaneous daily Protonix 40 mg daily (Flavio Osei MD R3) Problem Qualifiers (1) Superficial thrombophlebitis of upper extremity: Qualified Codes: I80.8 - Phlebitis and thrombophlebitis of other sites Flavio Osei MD R3 Aug 04, 2017 14:18 Wil Pisano MD Aug 05, 2017 16:31
[2017-08-04] MEDS ORDERED: GADODIAMIDE PF 287 MG/ML 5 ML VIAL (for RAD MRI) IVCONTRAST ONE (15:44)
--- NOTE | 2017-08-04 15:53 | RADRPT ---
EXAM DATE/TIME: 08/04/2017 15:13 [facility] COMPARISON: No previous studies available for comparison. INDICATIONS : CVA. Extremity weakness. CONTRAST: 22 cc Omniscan (gadodiamide) IV MEDICAL HISTORY : None. SURGICAL HISTORY : Cholecystectomy. ENCOUNTER: Initial ACUITY: 1 week PAIN SCORE: 0/10 LOCATION: Head. TECHNIQUE: Multiplanar, multisequence MRI of the brain was performed both prior to and following the administrat ion of paramagnetic contrast. FINDINGS: CEREBRUM: The ventricles are normal for age. No evidence of midline shift, mass lesion, hemorrhage or acute in farction. No extraaxial fluid collections are seen. The pituitary gland and suprasellar cistern are normal in configuration. WHITE MATTER: No significant signal abnormalities are seen in the white matter. POSTERIOR FOSSA: The cerebellum and brainstem are intact. The 4th ventricle is midline. The cerebellopontine angle is unremarkable. The cerebellar tonsils are normal in position. DIFFUSION IMAGING: No focal areas of restricted diffusion are seen. No evidence of acute infarction. EXTRACRANIAL: The visualized portions of the orbits and paranasal sinuses are unremarkable. POST-CONTRAST: No abnormal areas of parenchymal or dural enhancement. No evidence of blood-brain barrier breakdown. CONCLUSION: Normal examination. Víctor Navas MD on August 04, 2017 at 15:51 Board Certified Radiologist. This report was verified electronically.
--- NOTE | 2017-08-04 16:20 | RADRPT ---
EXAM DATE/TIME: 08/04/2017 15:13 [facility] COMPARISON: No previous studies available for comparison. INDICATIONS : Abscess. Back pain. CONTRAST: 22 cc Omniscan (gadodiamide) IV MEDICAL HISTORY : None. SURGICAL HISTORY : Cholecystectomy. ENCOUNTER: Initial ACUITY: 1 week PAIN SCORE: 6/10 LOCATION: Back. TECHNIQUE: Screening MRI of the entire spinal axis was performed in the sagittal and axial planes. FINDINGS: I don't see any abnormal areas of signal within the epidural space. The cord is normal in shape and p osition on all the imaging sequences. No compression fracture is identified. There is no significant enhancement or fluid in any of the disc spaces. Postcontrast images are normal. CONCLUSION: Normal examination. Víctro Navas MD on August 04, 2017 at 16:17 Board Certified Radiologist. This report was verified electronically.
[2017-08-04 17:57] LABS: FREE T4 1.21 NG/DL (0.76-1.46); TOTAL PROTEIN SPE 6.8 GM/DL (6.0-7.6)
--- NOTE | 2017-08-04 21:22 | RADRPT ---
EXAM DATE/TIME: 08/04/2017 20:13 [facility] COMPARISON: No previous studies available for comparison. INDICATIONS : Cerebrovascular accident. MEDICAL HISTORY : Peptic ulcer. Hiatal hernia. Syncope. SURGICAL HISTORY : Cholecystectomy. Hernia repair. ENCOUNTER: Initial ACUITY: 1 day PAIN SCORE: 2/10 LOCATION: Bilateral neck PEAK SYSTOLIC VELOCITIES (cm/sec): ICA/CCA RATIO: Right: 0.7 Left: 1.1 ICA: Right: 76 Left: 113 CCA: Right: 110 Left: 105 ECA: Right: 108 Left: 111 VERTEBRAL: Right: 51 antegrade Left: 54 antegrade Elevated flow velocities and ICA/CCA ratios have been found to correlate with increased degrees of vessel stenosis, calculated as percentage of diameter relative to a normal segment of distal ICA/CCA FINDINGS: RIGHT CAROTID: No significant stenosis is visualized. The waveforms are within normal limits. LEFT CAROTID: No significant stenosis is visualized. The waveforms are within normal limits. VERTEBRAL ARTERIES: Antegrade flow is seen in both vertebral arteries. MISCELLANEOUS: None. CONCLUSION: 1. Normal hemodynamic profile both carotids. Lasha Finch MD on August 04, 2017 at 21:20 Board Certified Radiologist. This report was verified electronically.
[2017-08-04] MEDS ORDERED: DEXAMETHASONE SOD PHOS 4 MG/ML VIAL IV PUSH ONE (21:45)
[2017-08-05] VITALS (7 sets, daily range): BP systolic 115–126; BP diastolic 66–84; PULSE 64–90; RESP 18–20; TEMP 97.3–98.1; O2SAT 95–97
[2017-08-05] MEDS: ENOXAPARIN SODIUM 40 MG/0.4 ML SYRINGE SQ SCH (00:30)
[2017-08-05] MEDS: IBUPROFEN 600 MG TAB PO SCH ×2 (04:18→10:32)
[2017-08-05] MEDS: diphenhydrAMINE HCL 50 MG CAP PO PRN ×2 (04:18→10:30)
[2017-08-05] MEDS: SUCRALFATE 1 GM TAB PO SCH (06:23)
--- NOTE | 2017-08-05 07:38 | HHI.PR ---
Objective Vital Signs Date Time Temp Pulse Resp B/P (MAP) Pulse Ox O2 Delivery O2 Flow Rate FiO2 08/05/17 05:54 97.8 66 18 118/75 (89) 95 08/05/17 05:28 18 08/05/17 04:00 75 08/05/17 01:34 83 08/05/17 00:07 98.1 84 18 115/66 (82) 95 08/04/17 23:39 95 08/04/17 21:31 98.2 85 18 117/73 (88) 97 08/04/17 20:00 91 08/04/17 15:39 98.2 81 20 128/72 (90) 97 08/04/17 12:39 97.5 97 20 100/54 (69) 97 08/04/17 12:00 92 08/04/17 09:16 Nasal Cannula 08/04/17 08:13 72 08/04/17 08:02 97.6 69 20 116/75 (89) 100 I/O 08/04/17 08/04/17 08/04/17 08/05/17 08/05/17 08/05/17 07:00 15:00 23:00 07:00 15:00 23:00 Intake Total 920 ml 240 ml Balance 920 ml 240 ml Intake Oral 920 ml 240 ml # Voids 1 4 2 # Bowel Movements 3 0 Result Diagram: 08/04/17 0635 08/04/17 0655 Objective Remarks ta bilat 5/5 nad Assessment and Plan Assessment and Plan imp feet sx gone still a little tingle in fingertips nad mri brain and entire spine nl us neg labs nl x tsh inc ok neuro lackey and will sign off i think sx from abts med team plz address thyroid abn and fu echo that is still pend You Prater MD Aug 05, 2017 07:38
[2017-08-05] MEDS: FLUoxetine HCL 20 MG CAP PO SCH (08:26)
[2017-08-05] MEDS: PANTOPRAZOLE SOD 40 MG DELAYED RELEASE TAB PO SCH (08:26)
[2017-08-05] MEDS: DOCUSATE SODIUM 50 MG/SENNA 8.6 MG TAB PO SCH (08:29)
[2017-08-05] MEDS: SODIUM CHLORIDE 0.9% FLUSH 10 ML FLUSH IV FLUSH SCH (08:29)
[2017-08-05] MEDS ORDERED: RANITIDINE HCL SYRUP 150 MG/10 ML UDC PO SCH (09:00)
[2017-08-05 09:33] LABS: ANION GAP 12 MEQ/L (5-15); AST (GOT) 30 U/L (15-37); BICARBONATE 22.4 MEQ/L (21.0-32.0); CHLORIDE 106 MEQ/L (98-107); GLOMERULAR FILTRATION RATE 98 ML/MIN (>89); POTASSIUM 4.2 MEQ/L (3.5-5.1); SODIUM (NA) 140 MEQ/L (136-145)
[2017-08-05 09:35] LABS: ALT (GPT) 77 U/L (12-78)
[2017-08-05 09:37] LABS: ALKALINE PHOSPHATASE 61 U/L (45-117); TOTAL BILIRUBIN ADULT 0.3 MG/DL (0.2-1.0)
[2017-08-05 09:40] LABS: BLOOD UREA NITROGEN 14 MG/DL (7-18)
[2017-08-05] MEDS ORDERED: IBUP-232 PO (10:24)
[2017-08-05] MEDS ORDERED: SM A2CRE3 TOPICAL (10:24)
[2017-08-05] MEDS ORDERED: DIPH50CA PO (10:24)
[2017-08-05] MEDS ORDERED: Ranitidine Liq PO (10:24)
--- NOTE | 2017-08-05 10:25 | HHI.DCPOC ---
Discharge Care Plan Diagnosis: (1) Sepsis (2) Peptic ulcer disease (3) Steatosis of liver (4) Paresthesias (5) Transaminitis (6) Diffuse papular rash (7) Superficial thrombophlebitis of upper extremity (8) Status post laparoscopic cholecystectomy Goals to Promote Your Health * To prevent worsening of your condition and complications * To maintain your health at the optimal level Directions to Meet Your Goals Take your medications as prescribed Follow your dietary instruction Follow activity as directed Keep your appointments as scheduled Take your immunizations and boosters as scheduled If your symptoms worsen call your PCP, if no PCP go to Urgent Care Center or Emergency Room Smoking is Dangerous to Your Health. Avoid second hand smoke Call the 24-hour hour crisis hotline for domestic abuse at Flavio Osei MD R3 Aug 05, 2017 10:25
--- NOTE | 2017-08-05 11:26 | HHI.FPPN ---
Subjective Remarks Patient seen this morning, mother by bedside. His rash has improved since yesterday. His face appears much better. The rash on the back is starting to go away. He continues to have erythematous macules on both hands and feet. No fevers overnight. All cultures remain normal. The dysesthesias in his hands and feet are improving. He has full function of his hands now. Neurology saw him yesterday and performed an extensive workup that was negative except elevated TSH. Because he is acutely ill we discussed rechecking the TSH in 6 weeks to see if it is still elevated. His T4 is normal. No chest pain or shortness of breath. No abdominal pain, nausea, vomiting, or diarrhea. He states he is starting to feel back to his normal self. He is eager to get out of the hospital today. (Flavio Osei MD R3) Objective Vitals Vital Signs Date Time Temp Pulse Resp B/P (MAP) Pulse Ox O2 Delivery O2 Flow Rate FiO2 08/05/17 10:02 64 08/05/17 07:43 97.6 71 20 126/71 (89) 97 08/05/17 05:54 97.8 66 18 118/75 (89) 95 08/05/17 05:28 18 08/05/17 04:00 75 08/05/17 01:34 83 08/05/17 00:07 98.1 84 18 115/66 (82) 95 08/04/17 23:39 95 08/04/17 21:31 98.2 85 18 117/73 (88) 97 08/04/17 20:00 91 08/04/17 15:39 98.2 81 20 128/72 (90) 97 08/04/17 12:39 97.5 97 20 100/54 (69) 97 08/04/17 12:00 92 I/O 08/04/17 08/04/17 08/04/17 08/05/17 08/05/17 08/05/17 07:00 15:00 23:00 07:00 15:00 23:00 Intake Total 920 ml 240 ml Balance 920 ml 240 ml Intake Oral 920 ml 240 ml # Voids 1 4 2 # Bowel Movements 3 0 (Flavio Osei MD R3) Result Diagram: 08/04/1735 08/05/17 0724 Imaging Last 72 hours Impressions Carotid Artery Ultrasound 08/04/17 1449 Signed Impressions: Service Date/Time: July 20:13 - CONCLUSION: 1. Normal hemodynamic profile both carotids. Lasha Finch MD Brain MRI 08/04/17 1449 Signed Impressions: Service Date/Time: , August 04, 2017 15:13 - CONCLUSION: Normal examination. Víctor Navas MD Entire Spine MRI 08/04/17 0000 Signed Impressions: Service Date/Time: , August 04, 2017 15:13 - CONCLUSION: Normal examination. Víctor Navas MD Objective Remarks General: Obese male, lying in bed, no distress, rash obviously getting better, appears better than yesterday. In better spirits. Skin: Papular and follicular rash on his face, upper back, neck, lower back, and buttocks. Has macular rash on palms and soles. Macules on palms and soles are blanching. Rash is itchy to the patient. Rash is improving, especially on his face. HEENT: Normocephalic, no scleral icterus, no nasal discharge. No oral ulcers or lesions. CV: RRR, no murmurs, rubs, or gallops Lungs: CTAB, no respiratory distress Abdomen: No tenderness to palpation, normal bowel sounds, surgical sites appearing normal. Ext: Bilateral distal arms with mild swelling, no erythema or pain with palpation, peripheral catheters removed Neuro: Awake, alert, oriented X3. Distal reflexes intact. EOMI, CN intact. Regained strength and range of motion. (Flavio Osei MD R3) A/P Assessment and Plan 22-year-old male with a recent laparoscopic cholecystectomy who presented with left chest pain, right upper quadrant pain, syncope, bilateral leg pain. Developed sepsis on day 2 of hospitalization and was transferred to ICU. On day 3 he was transferred back to the floor after his clinical status stabilized. On night of day 3 developed macular papular rash, possibly as reaction to antibiotics or as a viral exanthem. Day 4 he is improving clinically. Continuing with maculopapular rash, and now with paresthesias distally and left hand weakness, neurology and occupational therapy now on board. Discharge Planning Will discharge today. Take all medications as prescribed. Will follow up with me in clinic within the next week. If spiking fevers or feeling worse, call the clinic or return to the emergency department. Would expect the body rash to be mostly gone by a week. (Flavio Osei MD R3) Attending Attestation Patient seen and examined. Case reviewed and discussed with the resident DR Mateo Osei. Agree with plan of care as discussed with me and documented in the resident note. (Wil Pisano MD) Problem List: (1) Diffuse papular rash ICD Codes: R21 - Rash and other nonspecific skin eruption Status: Acute Plan: Diffuse maculopapular rash, with macules on palms and soles, after receiving vancomycin and Zosyn. Possibly reaction to vancomycin, or could be result of a viral illness. Hand foot and mouth is in differential. Reports no new sex partners. Reactive arthritis and syphilis, jg mountain spotted fever seem less likely. Also with mild sore throat and dry cough. Pharynx with a few exudates. Strep and flu test negative. - Continue supportive management - Benadryl for itching - Ibuprofen for pain - Follow viral cultures, all negative to date. - Follow up with me in clinic in the next week. (2) Paresthesias ICD Codes: R20.2 - Paresthesia of skin Status: Acute Plan: New onset paresthesias, possibly effect of medication versus Guillain [place] versus syphilis versus central nervous system disorder. Distal reflexes intact. Weak dried yeast supervisor on left side yesterday, resolved today. - Consulted neurology, appreciate recommendations. - MRI brain and spine normal - RPR pending - B1, B6, B12 pending - Rheumatoid factor pending - Creatinine kinase pending - CRP normal - ECHO and carotid Doppler today before discharge - Protein electrophoresis pending (3) Severe sepsis ICD Codes: A41.9 - Sepsis, unspecified organism; R65.20 - Severe sepsis without septic shock Status: Resolved Plan: Tachycardia, fever, elevated lactic acid (2.9). He recent cholecystectomy but has no guarding or rebound tenderness on exam. Chest x-ray is negative for acute process while CT chest shows some bibasilar atelectasis. UA not suggesting infection. Liver enzymes normal on admission, then elevated to AST/ALT of 111/122. LFT's trending down on day 2. Lipase normal at admission. Influenza A and B negative. Day 3 vital signs are stabilized and he is appearing much better. Now complaining of sore throat and dry cough. Had maculopapular rash on night of day 3, possible reaction to antibiotics which are now discontinued, or a viral exanthem. Hand foot and mouth infection is in the differential. Per father, he had all vaccines growing up. Strep A is negative, influenza negative, blood cultures negative to date. Viral cultures negative to date. - Blood cultures negative - Follow group A strep cultures. - Follow viral cultures, negative to date - Received vancomycin, Zosyn, Flagyl, discontinued after rash and itching developed. Vancomycin added to allergy list. - Received IV fluids, appears well hydrated, now PO fluids. (4) Abdominal pain ICD Codes: R10.9 - Unspecified abdominal pain Status: Resolved Plan: Recent laparoscopic cholecystectomy. Liver enzymes mildly elevated, normal at admission. CT abdomen is normal. - Consulted Dr. De Anda, general surgeon. No rigidity, rebound tenderness, or guarding. - Pain management: Ibuprofen 600 mg q6hrs scheduled. (5) Transaminitis ICD Codes: R74.0 - Nonspecific elevation of levels of transaminase and lactic acid dehydrogenase [LDH] Status: Acute Plan: Elevated ALT, AST. Unknown etiology. Had this at prior admission as well and had cholecystectomy performed. Possibly related to sepsis with end organ damage, also has hepatic steatosis proven by liver biopsy at last hospital visit. Hepatitis profile negative. Bishnu's disease and hemochromatosis ruled out. Could be the result of a viral infection. - Trend levels - Avoid hepatotoxic agents - Recommend no alcohol use - Recommend weight loss, healthy diet for steatosis (6) Superficial thrombophlebitis of upper extremity ICD Codes: I80.8 - Phlebitis and thrombophlebitis of other sites Status: Acute Plan: Thrombus formation in right upper extremity basilic and cephalic veins, likely due to intravenous peripheral catheter. - IV removed - Ibuprofen 600 mg q6hrs scheduled for pain - Warm compresses for swelling and pain - Elevate extremity periodically. (7) Nutrition, metabolism, and development symptoms ICD Codes: R63.8 - Other symptoms and signs concerning food and fluid intake Status: Acute Plan: Fluids: Oral fluids, monitor hydration status Electrolytes: Monitor and replace as necessary Nutrition: Regular basic diet DVT prophylaxis: Lovenox 40 mg subcutaneous daily Protonix 40 mg daily (Flavio Osei MD R3) Problem Qualifiers (1) Superficial thrombophlebitis of upper extremity: Qualified Codes: I80.8 - Phlebitis and thrombophlebitis of other sites Flavio Osei MD R3 Aug 05, 2017 11:26 Wil Pisano MD Aug 05, 2017 16:37
--- NOTE | 2017-08-05 12:06 | MB ---
cc: MARYSOL MCCANN DATE OF CONSULTATION 08/04/17 A 22-year-old right-handed man with hypertension, some remote peptic ulcer disease. About two weeks ago he was having some right upper quadrant pain, nausea, vomiting and was found have gallbladder problems, had his gallbladder taken out and he seemed to do well for about two weeks and then Tuesday this past week he developed some chest pain, some abdominal pain and a temperature to 106. He was brought into the hospital, given antibiotics. He seemed to be doing well, but then yesterday he began to have pins and needles in his toes and also his fingertips, not on his chest, not in the perineum, not on his face. He has had a little bit of not headache, sometimes more severe than others. I am asked to see him for the pins and needles. no new back pain he tells me. Evidently, he had a diagnostic laparoscopic cholecystectomy, laparoscopic liver biopsy and open repair of umbilical hernia on July 16, worried about sepsis. Blood cultures were obtained. He was started on antibiotics. After arriving in the IC he says he had left hand numbness and unable to move his left hand. A little while later, bilateral leg numbness according to a note in the chart. What he described to me, however, was more a pins and needles in the fingertips and toe tips. He had abdominal CT showed hepatic steatosis, some atelectasis, some nonspecific enlargement of the spleen. Lower extremity ultrasound no DVT. CTA of his chest was negative for any PE. Chest x-ray was normal. He says his hand comes and goes but he Is unable to move it or it is numb. MEDICATIONS Current, 1. Protonix. 2. Carafate. 3. Prozac 40 mg a day. 4. Motrin. 5. Benadryl. 6. Vancomycin. 7. Metronidazole 8. Piperacillin 9. Lovenox subcu 40. REVIEW OF SYSTEMS He denied any diabetes, hypercholesterolemia, SD, stent, angioplasty, A. fib, Coumadin, renal, hepatic, pulmonary disease, thyroid disease, lupus, cancer, seizure or stroke. SOCIAL HISTORY Not a smoker or a drinker. Lives with his roommates. He is just graduating from college at [employer] FAMILY HISTORY Negative for cancer, seizure, stroke PHYSICAL EXAMINATION VITAL SIGNS: Afebrile, 97, 20, 100/54. Generally blood pressures have been that fine. NECK: There are no carotid bruits. Heart: Regular rhythm. I did not detect a murmur. He is a large man, not particularly obese. Pupils are equal but larger. Visual le are full. Extraocular movements intact without nystagmus. Face symmetric with normal sensation. Tongue was midline. Neck was supple but Brudzinski testing he did say he had some pain in the back of his neck. Kerning's sign was negative. There was no drift. He had normal strength in upper and lower extremities best testing, but he had a lot of give-away weakness because he says his shoulders hurt, his fingers hurt, especially in the upper extremities but at best testing his deltoids, biceps, triceps, finger extensors, FDI pincher grasp normal as was iliopsoas, hamstring, quad, tibialis anterior, toe extensors. DTRs are 3+ and symmetric throughout. There was no ankle clonus. Tone was normal throughout. Toes are downgoing bilaterally. Pinprick, vibratory sense and proprioception were intact throughout. She is not ataxic on [id number]. LABORATORY DATA CBC is normal, sed rate was 21. Hepatitis screen negative. Antinuclear antibody normal. Celiac disease was negative. UA was normal. Coags normal. Basic metabolic profile was normal. His LFTs, ALT is 93, AST 21. Calcium is normal. CPK is normal. Troponin has been negative. Total protein is five. Albumin is low at 3.2-2.4. CBC normal. All of his blood cultures were normal. He actually had a thoracic spine MRI done July 15 which was normal. IMPRESSION AND PLAN neurological exam was normal. My first worry was that he could have a spinal abscess with some cord compression with the symptoms and we are checking an MRI of his cervical, thoracic, and lumbosacral spine. There is no evidence for Guillain [place]. He is a little hyperreflexic but not spastic and with the hand going weak, we would check a carotid ultrasound and an MRI of the brain in addition. I have also recommended doing an echocardiogram to make sure there is no endocarditis. The Metronidazole can cause neuropathy. I would recommend stopping that. We will check some additional labs on him such as a thyroid and B12. MD JAYLYN Cervantes/ /2:41 PM /11:49 AM
--- NOTE | 2017-08-05 14:51 | ECHRPT ---
Indication: CVA/TIA CONCLUSIONS The left ventricular systolic function is normal with an estimated ejection fraction in the range of 60-65%. Wall thickness is normal. Normal left ventricular size. Mild mitral valve regurgitation. There is mild tricuspid valve regurgitation. The estimated pulmonary arterial pressure is 32 mmHg. There is a small pericardial effusion present. BP: 128 / 72 HR: 97 Rhythm: Sinus MEASUREMENTS (Male / Female) Normal Values Technical Quality:Good 2D ECHO LV Diastolic Diameter PLAX 5.2 cm 4.2 - 5.9 / 3.9 - 5.3 cm LV Systolic Diameter PLAX 3.7 cm IVS Diastolic Thickness 1.1 cm 0.6 - 1.0 / 0.6 - 0.9 cm LVPW Diastolic Thickness 1.1 cm 0.6 - 1.0 / 0.6 - 0.9 cm LV Relative Wall Thickness 0.4 LVOT Diameter 2.2 cm M-MODE Aortic Root Diameter MM 3.0 cm LA Systolic Diameter MM 3.5 cm LA Ao Ratio MM 1.2 AV Cusp Separation MM 2.3 cm DOPPLER AV Peak Velocity 113.0 cm/s AV Peak Gradient 5.1 mmHg LVOT Peak Velocity 90.8 cm/s LVOT Peak Gradient 3.3 mmHg AV Area Cont Eq pk 3.1 cm MR Peak Velocity 322.0 cm/s MR Peak Gradient 41.5 mmHg Mitral E Point Velocity 103.0 cm/s Mitral A Point Velocity 54.3 cm/s Mitral E to A Ratio 1.9 LV E' Lateral Velocity 8.3 cm/s Mitral E to LV E' Lateral Ratio 12.4 LV E' Septal Velocity 8.9 cm/s Mitral E to LV E' Septal Ratio 11.6 TR Peak Velocity 235.0 cm/s TR Peak Gradient 22.1 mmHg Right Atrial Pressure 10.0 mmHg Pulmonary Artery Systolic Pressu 32.1 mmHg Right Ventricular Systolic Press 32.1 mmHg PV Peak Velocity 119.0 cm/s PV Peak Gradient 5.7 mmHg FINDINGS LEFT VENTRICLE The left ventricular systolic function is normal with an estimated ejection fraction in the range of 60-65%. Wall thickness is normal. Normal left ventricular size. RIGHT VENTRICLE Normal right ventricular size and systolic function. LEFT ATRIUM The left atrial size is normal. RIGHT ATRIUM The right atrial size is normal. ATRIAL SEPTUM Normal atrial septal thickness without atrial level shunting by limited color doppler interrogation. AORTA The aortic root and proximal ascending aorta are normal in size on limited imaging. MITRAL VALVE Mild mitral valve regurgitation. AORTIC VALVE Trileaflet aortic valve. No aortic valve stenosis or regurgitation. TRICUSPID VALVE There is mild tricuspid valve regurgitation. The estimated pulmonary arterial pressure is 32.1 mmHg. PULMONARY VALVE No pulmonary valve regurgitation or stenosis. VESSELS The inferior vena cava is normal in size. PERICARDIUM There is a small pericardial effusion present. Hermilo Cain MD, FACC (Electronically Signed) Final Date:05 August 2017 14:50
[2017-08-06 04:49] LABS: RHEUMATOID FACTOR TRIGGER LESS THAN 10.0 IU/ML (0.0-14.9)
--- NOTE | 2017-08-07 17:25 | HHI.DS ---
Discharge Summary Admission Date Jul 31, 2017 at 22:26 Discharge Date: Aug 05, 2017 Admitting Diagnosis Syncope, sepsis, bilateral pneumonia (1) Diffuse papular rash Diagnosis: Principal Plan: Diffuse maculopapular rash, with macules on palms and soles, after receiving vancomycin and Zosyn. Possibly reaction to vancomycin, or could be result of a viral illness. Hand foot and mouth is in differential. Reports no new sex partners. Reactive arthritis and syphilis, jg mountain spotted fever seem less likely. Also with mild sore throat and dry cough. Pharynx with a few exudates. Strep and flu test negative. - Continue supportive management - Benadryl for itching - Ibuprofen for pain - Follow viral cultures, all negative to date. - Follow up with me in clinic in the next week. ICD Codes: R21 - Rash and other nonspecific skin eruption Status: Acute (2) Paresthesias Diagnosis: Principal Plan: New onset paresthesias, possibly effect of medication versus Guill[place] versus syphilis versus central nervous system disorder. Distal reflexes intact. 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 - Consulted neurology, appreciate recommendations. - MRI brain and spine normal - RPR pending - B1, B6, B12 pending - Rheumatoid factor pending - Creatinine kinase pending - CRP normal - ECHO and carotid Doppler today before discharge - Protein electrophoresis pending ICD Codes: R20.2 - Paresthesia of skin Status: Acute (3) Severe sepsis Diagnosis: Principal Plan: Tachycardia, fever, elevated lactic acid (2.9). He recent cholecystectomy but has no guarding or rebound tenderness on exam. Chest x-ray is negative for acute process while CT chest shows some bibasilar atelectasis. UA not suggesting infection. Liver enzymes normal on admission, then elevated to AST/ALT of 111/122. LFT's trending down on day 2. Lipase normal at admission. Influenza A and B negative. Day 3 vital signs are stabilized and he is appearing much better. Now complaining of sore throat and dry cough. Had maculopapular rash on night of day 3, possible reaction to antibiotics which are now discontinued, or a viral exanthem. Hand foot and mouth infection is in the differential. Per father, he had all vaccines growing up. Strep A is negative, influenza negative, blood cultures negative to date. Viral cultures negative to date. - Blood cultures negative - Follow group A strep cultures. - Follow viral cultures, negative to date - Received vancomycin, Zosyn, Flagyl, discontinued after rash and itching developed. Vancomycin added to allergy list. - Received IV fluids, appears well hydrated, now PO fluids. ICD Codes: A41.9 - Sepsis, unspecified organism; R65.20 - Severe sepsis without septic shock Status: Resolved (4) Abdominal pain Diagnosis: Secondary Plan: Recent laparoscopic cholecystectomy. Liver enzymes mildly elevated, normal at admission. CT abdomen is normal. - Consulted Dr. De Anda, general surgeon. No rigidity, rebound tenderness, or guarding. - Pain management: Ibuprofen 600 mg q6hrs scheduled. ICD Codes: R10.9 - Unspecified abdominal pain Status: Resolved (5) Transaminitis Diagnosis: Secondary Plan: Elevated ALT, AST. Unknown etiology. Had this at prior admission as well and had cholecystectomy performed. Possibly related to sepsis with end organ damage, also has hepatic steatosis proven by liver biopsy at last hospital visit. Hepatitis profile negative. Bishnu's disease and hemochromatosis ruled out. Could be the result of a viral infection. - Trend levels - Avoid hepatotoxic agents - Recommend no alcohol use - Recommend weight loss, healthy diet for steatosis ICD Codes: R74.0 - Nonspecific elevation of levels of transaminase and lactic acid dehydrogenase [LDH] Status: Acute (6) Superficial thrombophlebitis of upper extremity Diagnosis: Secondary Plan: Thrombus formation in right upper extremity basilic and cephalic veins, likely due to intravenous peripheral catheter. - IV removed - Ibuprofen 600 mg q6hrs scheduled for pain - Warm compresses for swelling and pain - Elevate extremity periodically. ICD Codes: I80.8 - Phlebitis and thrombophlebitis of other sites Status: Acute (7) Nutrition, metabolism, and development symptoms Diagnosis: Secondary Plan: Fluids: Oral fluids, monitor hydration status Electrolytes: Monitor and replace as necessary Nutrition: Regular basic diet DVT prophylaxis: Lovenox 40 mg subcutaneous daily Protonix 40 mg daily ICD Codes: R63.8 - Other symptoms and signs concerning food and fluid intake Status: Acute Brief History Patient is a 22-year-old male with a recent laparoscopic cholecystectomy who presents with chief complaints of left chest pain, right upper quadrant pain, syncope, bilateral leg pain. He was recently placed in observation here on 2016 for hematemesis. Upper endoscopy endoscopy showed normal duodenum, minimal chronic gastritis, and esophagus c/w mild reflux but no ulcers. During that observation, he had RUQ pain and was taken for lap hill, which showed mild chronic inflammation of the gallbladder wall. His RUQ pain was gone for 2 weeks following lap hill. He followed up with general surgeon Dr. De Anda last Tuesday and everything was doing well. He then established with primary care resident Dr. Flavio Osei on 07/28. He was feeling well until yesterday, Tuesday night, when he noticed his RUQ incision site was painful, it felt sharp. Then his RUQ pain spread. Today, his pain became progressively worse. He felt alternating "super cold and super hot. " At dinner the night of admission, he became "white as a ghost." Thus, he was brought by wheelchair to triage where he felt flushed, nausea, cold sweats, chest pain, then passed out and woke up in ED. He reports that he felt left- sided chest pain, which was improved with Dilaudid. His chest pain is still there but less now. He also reports that at one point in the ED, his left hand was stuck, immobile and unresponsive even to pain. He also c/o BL leg pain, from the calf down. CBC/BMP: 08/04/17 0635 08/05/17 0724 Significant Findings Laboratory Tests Test 08/05/17 07:24 Albumin 3.3 GM/DL (3.4-5.0) PE at Discharge General: Obese male, lying in bed, no distress, rash obviously getting better, appears better than yesterday. In better spirits. Skin: Papular and follicular rash on his face, upper back, neck, lower back, and buttocks. Has macular rash on palms and soles. Macules on palms and soles are blanching. Rash is itchy to the patient. Rash is improving, especially on his face. HEENT: Normocephalic, no scleral icterus, no nasal discharge. No oral ulcers or lesions. CV: RRR, no murmurs, rubs, or gallops Lungs: CTAB, no respiratory distress Abdomen: No tenderness to palpation, normal bowel sounds, surgical sites appearing normal. Ext: Bilateral distal arms with mild swelling, no erythema or pain with palpation, peripheral catheters removed Neuro: Awake, alert, oriented X3. Distal reflexes intact. EOMI, CN intact. Regained strength and range of motion. Hospital Course 22 year old male, patient of mine in the [facility]. He presented on 07/31 with RUQ pain, left chest pain, presyncope, bilateral leg pain. He was recently in the hospital for transaminitis, hematemesis, and RUQ and had a cholecystectomy with relief of all symptoms. He presented this visit with abdominal pain and chest pain, and was initially thought to have pneumonia. Chest x-ray was negative but CT of the chest showed basilar atelectasis. On day 2 of admission he became severely septic with high fevers up to 103, tachycardia , and borderline low blood pressures. He was treated with vancomycin and Zosyn and transferred to the ICU. He quickly recovered and by the next day was able to be transferred out of the ICU. However, he then developed a diffuse maculopapular rash all over his body, especially the face, upper and lower extremities, back, and neck. He also developed a macular rash on the palms and soles. The vancomycin and Zosyn were stopped for fear that he was having an adverse drug reaction. Vancomycin was subsequently added to his list of allergies. He was then treated with steroids and Benadryl. He remained clinically well besides the rash, but then developed paresthesias and difficulty opening his left hand. Neurology was consulted for neurological investigation. An extensive workup, including MRI of the brain and spine, RPR, vitamin levels, etc. was conducted and all negative. An extensive viral workup was initiated as he developed sore throat and a dry cough and started to appear to have a severe viral illness. Viral panels remained negative. Strep and flu test were also negative. Differential includes adverse drug reaction, viral illness including hand foot and mouth disease, jg mountain spotted fever, etc. He became increasingly well and regained full functioning of his hands. Paresthesias resolved. There was a though he may be developing Guillain [place] but he recovered quickly. His DTR's remained intact throughout his course. He never developed respiratory distress. Precautions on when to return to the hospital were given to him before discharge. He is my patient in clinic and will follow up with me in clinic within a week. Pt Condition on Discharge: Good Discharge Disposition: Discharge Home Discharge Instructions DIET: Follow Instructions for: As Tolerated, No Restrictions Activities you can perform: Regular-No Restrictions Follow up Referrals: PCP Follow-up - 1 Week New Medications: Diphenhydramine HCl (Diphenhydramine HCl) 50 Mg Cap 50 MG PO Q6H PRN for ITCHING, #30 CAP Diphenhydramine-Zinc Acetate (Sm Anti-Itch Extra Streng 2-0.1 %) 2 %-0.1 % Cre 1 APPLIC TOPICAL TID PRN for ITCHING, #1 TUBE Ibuprofen (Ibuprofen) 600 Mg Tab 600 MG PO Q6H, #30 TAB [Ranitidine Liq] () 150 MG/10 ML SYRP 150 MG PO Q12HR, #120 ML Continued Medications: Fluoxetine (Prozac) 40 Mg Cap 40 MG PO DAILY, #30 CAP 0 Refills Pantoprazole (Protonix) 40 Mg Tab 40 MG PO DAILY for Reflux, #30 TAB 0 Refills Sucralfate (Carafate) 1 Gram Tab 1 GM PO BIDAC, #60 TAB Flavio Osei MD R3 Aug 07, 2017 17:24
[2017-08-09 11:52] LABS: VITAMIN B6 3.4 ng/mL (2.1-21.7)
[2017-08-09 21:36] LABS: ALBUMIN SPE 4.03 GM/DL (3.50-5.00); ALPHA 1 GLOBULIN 0.27 GM/DL (0.11-0.29); ALPHA 2 GLOBULIN 0.69 GM/DL (0.22-1.00); BETA GLOBULINS (SPE) 0.72 GM/DL (0.53-1.03)
== END 2017-08-05 14:06 | disposition home or self-care (01) | DRG 872 ==
LOC: NEPE 18:28 → NEDA 22:26 → N06B 08-01 00:27 → N03A 08-01 08:53 → N05A 08-02 16:20
PROVIDERS: ADMIT Family Medicine; ATTEND Family Medicine
DX: A41.9 Sepsis, unspecified organism (principal); K76.0 Fatty (change of) liver, not elsewhere classified; I82.611 Acute embolism and thrombosis of superficial veins of right upper extremity; J98.11 Atelectasis; R55 Syncope and collapse; R00.0 Tachycardia, unspecified; Z87.11 Personal history of peptic ulcer disease; K29.50 Unspecified chronic gastritis without bleeding; F32.9 Major depressive disorder, single episode, unspecified; Z68.33 Body mass index [BMI] 33.0-33.9, adult; M79.604 Pain in right leg; M79.605 Pain in left leg; F41.9 Anxiety disorder, unspecified; R74.0 Nonspecific elevation of levels of transaminase and lactic acid dehydrogenase [LDH]; R16.1 Splenomegaly, not elsewhere classified; R21 Rash and other nonspecific skin eruption; L27.0 Generalized skin eruption due to drugs and medicaments taken internally; T36.8X5A Adverse effect of other systemic antibiotics, initial encounter; Y92.239 Unspecified place in hospital as the place of occurrence of the external cause; B09 Unspecified viral infection characterized by skin and mucous membrane lesions; B34.9 Viral infection, unspecified; Z82.49 Family history of ischemic heart disease and other diseases of the circulatory system
CPT/HCPCS: 70553; 71010; 71275; 72156; 72158; 74177; 76937; 80048; 80053; 80074; 80076; 81001; 82550; 82607; 82948; 82977; 83605; 83690; 83880; 84145; 84155; 84165; 84207; 84425; 84439; 84443; 84484; 85025; 85027; 85379; 85610; 85730; 86140; 86430; 86592; 86850; 86900; 86901; 87040; 87070; 87081; 87205; 87252; 87529; 87640; 87641; 87798; 87804; 87880; 93005; 93306; 93880; 93970; 93971; 96361; 96374; 96375; A9579; J0456; J0692; J1100; J1170; J1200; J1650; J1885; J1956; J2270; J2405; J2543; J2920; J3370; J3480; J7030; J7040; J7050; J7512; Q0163; Q9967